=== PATIENT | female | born 1940 | race Caucasian/White ===

== ENCOUNTER → 2023-08-27 07:17 | Outpatient (REF) | payer MEDICARE, SELFPAY ==
[2023-08-27 07:48] LABS: % Basophils 0.8 % (0-2); % Immature Granulocytes 0.3 % (0-0.5); % Lymphocytes 18.6 % (20.5-51.1); % Monocytes 9.6 % (1.7-9.3); % Neutrophils 68.7 % (42.2-75.2); Absolute Basophils 0.1 10^3/uL (0-0.2); Absolute Eosinophils 0.1 10^3/uL (0-0.7); Absolute Lymphocytes 1.2 10^3/uL (1.2-3.4); Absolute Monocytes 0.6 10^3/uL (0.1-0.6); Absolute Neutrophils 4.5 10^3/uL (1.4-6.5); Hematocrit 36.4 % (37.0-47.0); Hemoglobin 12.4 g/dL (12.0-16.0); Mean Corp Hgb Conc. 34.1 g/dL (33.0-37.0); Mean Corpuscular Hgb 30.8 pg (27.0-31.0); Mean Corpuscular Volume 90.3 fL (81.0-99.0); Nucleated Red Blood Cells % 0 %; Platelet Count 246 10^3/uL (130-400); Red Blood Cell Count 4.03 10^6/uL (4.20-5.40); White Blood Cell Count 6.6 10^3/uL (4.8-10.8)
[2023-08-27 08:24] LABS: Urine Albumin Trace (Neg - Trace); Urine Bilirubin Negative (Negative); Urine Character Slightly Cloudy (Clear); Urine Color Yellow; Urine Glucose Negative (Negative); Urine Ketone Negative (Negative); Urine Leukocyte 2+ (Negative); Urine Nitrite Negative (Negative); Urine Occult Blood 2+ (Negative); Urine Specific Gravity 1.015 (<1.030); Urine Urobilinogen Negative (Neg - 1+)
[2023-08-27 08:47] LABS: ALT (SGPT) 12 U/L (0-35); AST (SGOT) 26 U/L (14-36); Albumin 3.6 g/dl (3.5-5.0); Alkaline Phosphatase 62 U/L (38-126); Blood Urea Nitrogen 23 mg/dl (7-17); Calcium 9.2 mg/dl (8.4-10.2); Carbon Dioxide 27 mmol/L (22-30); Chloride 99 mmol/L (98-107); Glucose 110 mg/dl (70-99); HDL Cholesterol 27 mg/dl; LDL Cholesterol, Calculated 83 mg/dl; Potassium 3.5 mmol/L (3.5-5.1); Sodium 137 mmol/L (135-145); Total Bilirubin 1.1 mg/dl (0.2-1.3); Total Cholesterol 132 mg/dl (50-199); Total Protein 7.9 g/dl (6.3-8.2); Triglyceride 112 mg/dl (10-149); Very Low Density Lipoprotein 22 mg/dl (0-30); eGFR > 60.00
[2023-08-27 09:43] LABS: Urine Bacteria Many (Negative); Urine White Cell 60-70 /HPF (0-5)
[2023-08-27 11:10] LABS: Glycohemoglobin (HgbA1c) 6.1 % (4.0-5.6)
== END ==
LOC: REG 07:17
PROVIDERS: ATTENDING PHYSICIAN Family Medicine
DX: I50.32 Chronic diastolic (congestive) heart failure (principal); I10 Essential (primary) hypertension; R73.01 Impaired fasting glucose; E03.9 Hypothyroidism, unspecified
CPT/HCPCS: 36415; 80053; 80061; 81003; 81015; 83036; 85025

== ENCOUNTER → 2024-01-28 07:18 | Outpatient (REF) | payer MEDICARE, SELFPAY ==
[2024-01-28 08:09] LABS: % Basophils 0.7 % (0-2); % Eosinophils 2.8 % (0-6); % Immature Granulocytes 0.5 % (0-0.5); % Lymphocytes 23.5 % (20.5-51.1); % Monocytes 8.9 % (1.7-9.3); % Neutrophils 63.6 % (42.2-75.2); Absolute Eosinophils 0.2 10^3/uL (0-0.7); Absolute Lymphocytes 1.4 10^3/uL (1.2-3.4); Absolute Monocytes 0.5 10^3/uL (0.1-0.6); Absolute Neutrophils 3.9 10^3/uL (1.4-6.5); Hemoglobin 13.5 g/dL (12.0-16.0); Mean Corp Hgb Conc. 33.8 g/dL (33.0-37.0); Mean Corpuscular Hgb 30.3 pg (27.0-31.0); Mean Corpuscular Volume 89.7 fL (81.0-99.0); Mean Platelet Volume 10.3 fL (7.4-10.4); Nucleated Red Blood Cells % 0 %; Platelet Count 241 10^3/uL (130-400); Red Blood Cell Count 4.46 10^6/uL (4.20-5.40); Red Cell Dist. Width 14.5 % (11.5-14.5); White Blood Cell Count 6.1 10^3/uL (4.8-10.8)
[2024-01-28 08:40] LABS: ALT (SGPT) 12 U/L (0-35); AST (SGOT) 25 U/L (14-36); Albumin 4.4 g/dl (3.5-5.0); Blood Urea Nitrogen 23 mg/dl (7-17); Calcium 9.3 mg/dl (8.4-10.2); Carbon Dioxide 25 mmol/L (22-30); Chloride 99 mmol/L (98-107); Glucose 101 mg/dl (70-99); Potassium 3.6 mmol/L (3.5-5.1); Sodium 136 mmol/L (135-145); Total Protein 7.9 g/dl (6.3-8.2); eGFR 55.55
[2024-01-28 08:49] LABS: Alkaline Phosphatase 71 U/L (38-126)
[2024-01-28 09:20] LABS: Glycohemoglobin (HgbA1c) 6.2 % (4.0-5.6)
== END ==
LOC: REG 07:18
PROVIDERS: ATTENDING PHYSICIAN Family Medicine
DX: Z79.01 Long term (current) use of anticoagulants (principal); R73.01 Impaired fasting glucose
CPT/HCPCS: 36415; 80053; 83036; 85025

== ENCOUNTER 2024-02-25 18:19 | Inpatient (IN) | payer MEDICARE, SELFPAY ==
[2024-02-25] VITALS (9 sets, daily range): BP systolic 95–128; BP diastolic 50–80; BMI 30.2
[2024-02-25 12:52] LABS: ALT (SGPT) 148 U/L (0-35); AST (SGOT) 165 U/L (14-36); Albumin 4.1 g/dl (3.5-5.0); Alkaline Phosphatase 538 U/L (38-126); Blood Urea Nitrogen 22 mg/dl (7-17); Calcium 9.2 mg/dl (8.4-10.2); Carbon Dioxide 19 mmol/L (22-30); Chloride 101 mmol/L (98-107); Glucose 175 mg/dl (70-99); Lipase 682 U/L (23-300); Potassium 3.5 mmol/L (3.5-5.1); Sodium 137 mmol/L (135-145); Total Bilirubin 5.8 mg/dl (0.2-1.3); Total Protein 7.7 g/dl (6.3-8.2); eGFR 55.55
[2024-02-25 13:02] LABS: Troponin I 0.015 ng/ml
[2024-02-25 13:20] LABS: % Basophils 0.3 % (0-2); % Eosinophils 0.1 % (0-6); % Immature Granulocytes 1.3 % (0-0.5); % Lymphocytes 2.6 % (20.5-51.1); % Monocytes 7.9 % (1.7-9.3); % Neutrophils 87.8 % (42.2-75.2); Absolute Basophils 0.1 10^3/uL (0-0.2); Absolute Immature Granulocytes 0.3 10^3/uL (0-0.05); Absolute Lymphocytes 0.6 10^3/uL (1.2-3.4); Absolute Monocytes 1.9 10^3/uL (0.1-0.6); Absolute Neutrophils 20.6 10^3/uL (1.4-6.5); Hematocrit 36.7 % (37.0-47.0); Mean Corp Hgb Conc. 35.4 g/dL (33.0-37.0); Mean Corpuscular Volume 87.4 fL (81.0-99.0); Mean Platelet Volume 10.3 fL (7.4-10.4); Nucleated Red Blood Cells % 0 %; Platelet Count 197 10^3/uL (130-400); Red Cell Dist. Width 14.6 % (11.5-14.5); White Blood Cell Count 23.5 10^3/uL (4.8-10.8)
--- NOTE | 2024-02-25 13:54 | ED.GENMED ---
History of Present Illness
General
Chief Complaint: Abdominal Pain
Source: patient and family
Exam Limitations: none
Time Seen by Provider: 02/25/24 13:22
History of Present Illness
History of Present Illness:
Patient is a 89-year-old female with previous history of cholecystectomy, hysterectomy appendectomy A-fib hypertension who presents to the ER complaining of upper abdominal pain. She reports she has had this pain off and on for the past week but
this morning started at 5 AM. She has had diarrhea and did vomit at 7 this morning. She did take a Pepcid. She denies any associated fever or chills.
Past History
Past History
ED Past Medical History: Arrthythmia (Atrial fibrillation.), Asthma, GERD, HTN and Hypothyroidism
Social History
Tobacco: Non-smoker
Alcohol: None
Drug: None
Living: alone
Employment: Retired
Family History
Family History: Other (Noncontributory)
Review of Systems
Review of Systems
Allergies reviewed?: Yes
Other source history: family
All Other Systems: ROS reviewed and negative except as documented in HPI and ROS
Constitutional: Reports no symptoms; Denies fever, fatigue or chills
Respiratory: Reports no symptoms
Cardiac: Reports no symptoms
ABD/GI: Reports abdominal pain, nausea, vomiting and diarrhea
: Reports no symptoms
Musculoskeletal: Reports no symptoms; Denies back pain
Skin: Reports no symptoms
Neurological: Reports no symptoms
Psychiatric: Reports no symptoms
Phy Exam
General Physical Exam
General Presentation: no apparent distress
General age: appears stated age
General Skin: warm and dry
General Habitus: normal
General Mental: alert
General Hydration: appears well hydrated
Eye Exam
Eye Exam: PERRL, EOMI and other (Mild scleral icterus)
Cardiovascular Exam
Cardiovascular Exam: regular rate/rhythm, no murmur and normal peripheral pulses
Pulmonary Exam
Pulmonary Exam: lungs clear and no respiratory distress
Gastrointestinal Exam
Gastrointestinal Exam: soft and other (tender epigastric region /ruq )
Neurological Exam
Neurological Exam: alert and oriented x3
Musculoskeletal Exam
Musculoskeletal Exam: full ROM
Skin Exam
Skin Exam: normal color and warm/dry
Psychiatric Exam
Psychiatric Exam: normal mood/affect
Course
Orders/Labs/Results
Orders:
Orders
02/25/24 12:01
Electrocardiogram (*1) Urgent
Reason for Study: Abdominal Pain
EKG- Treatment ONCE
02/25/24 12:22
Comprehensive Metabolic Panel Urgent
Lipase Urgent
02/25/24 12:23
Complete Blood Count/With Diff Urgent
Troponin I Urgent
02/25/24 14:01
CT Abd/pelvis W Iv Cont Urgent
Comment:
Reason For Exam: upper abd pain elevated lfts /bili
02/25/24 14:48
Lactic Acid Urgent
Blood Culture Urgent
BETTY Source: Blood/Venous
Specimen Description:
02/25/24 16:43
Ciprofloxacin 400 mg/[id number] [Cipro 400 mg] 200 ml IV NOW
Abnormal Lab Results
02/25/24 02/25/24
12:22 12:23
WBC 23.5 H 10^3/uL
(4.8-10.8)
Hct 36.7 L %
(37.0-47.0)
RDW 14.6 H %
(11.5-14.5)
Abs Immat Gran (auto) 0.3 H 10^3/uL
(0-0.05)
Absolute Neuts (auto) 20.6 H 10^3/uL
(1.4-6.5)
Absolute Lymphs (auto) 0.6 L 10^3/uL
(1.2-3.4)
Absolute Monos (auto) 1.9 H 10^3/uL
(0.1-0.6)
Immature Gran % 1.3 H %
(0-0.5)
Neutrophils % 87.8 H %
(42.2-75.2)
Lymphocytes % 2.6 L %
(20.5-51.1)
Carbon Dioxide 19 L mmol/L
(22-30)
BUN 22 H mg/dl
(7-17)
Glucose 175 H mg/dl
(70-99)
Total Bilirubin 5.8 H mg/dl
(0.2-1.3)
AST 165 H U/L
(14-36)
ALT 148 H U/L
(0-35)
Alkaline Phosphatase 538 H U/L
(38-126)
Lipase 682 H U/L
(23-300)
02/25/24 12:23
02/25/24 12:22
Vital Signs
Initial and Last Documented VS:
Initial Vital Signs
Temp Pulse Resp BP Pulse Ox
97.8 F 116 20 128/75 92
02/25/24 11:57 02/25/24 11:57 02/25/24 11:57 02/25/24 11:57 02/25/24 11:57
Last Documented Vital Signs
Temp Pulse Resp BP Pulse Ox
97.8 F 90 22 95/50 92
02/25/24 11:57 02/25/24 14:45 02/25/24 14:45 02/25/24 14:00 02/25/24 14:30
Ceo Na consulted with Physician
Ceo Na consulted with physician?: Yes
Name of Physician Consulted: DR Boston
MDM/Problems Addressed
MDM/Problems Addressed:
Patient is a 89-year-old female who presents with upper abdominal pain nausea vomiting diarrhea. Patient presents with an elevated white count of 23,000 denies any fevers elevated bili and elevated LFTs. She is tender in the epigastric area. CAT
scan shows diffuse biliary ductal dilatation evidence for at least 3 noncalcified common bile duct calculi.
Patient appears well however nontoxic. Case discussed with GI Dr. Glover. Patient is allergic to penicillin she does recommend IV Cipro will admit to the hospitalist service
*Radiology
Radiology exam reviewed: radiology read reviewed
*Pulse Oximetry
Patient hypoxic: no
*Critical Care Note
Total Time (30-74mins, 75-104mins- exclusive of procedures): Not Applicable
Patient Management
Discussion with other providers: Core Loader (DR Glover , GI)
ED Attending Note
-
Portions of this chart may have been created with voice recognition software.� Occasional wrong word or��sound alike� substitutions may have occurred due to the inherent limitations of voice recognition software.
Discharge Plan
Departure
Patient Disposition: Admit
Date of Disposition: 02/25/24
Time of Disposition: 16:46
Admit to: Med/Surg
Admit to doctor: hospitalist
Presentation/result/management discussed w/ accepting MD/DO: Hospitalist
Patient with high blood pressure during this ER visit?: No
Condition: Fair
Covid-19: Not Applicable
Discharge Problem:
Biliary calculi, common bile duct, Elevated LFTs
Prescriptions:
No Action
propranolol 80 MG tablet
80 mg PO DAILY
levothyroxine 125 MCG tablet
125 mcg PO DAILY AT 0700
esomeprazole magnesium [Nexium 24HR] 20 MG capsule,delayed release(DR/EC)
20 mg PO DAILY
acetaminophen 325 MG tablet
650 mg PO Q6HPRN PRN (Reason: mild pain)
multivitamin with folic acid [Tab-A-Theo] 1 TABLET tablet
1 tab PO DAILY
diltiazem HCl 120 MG capsule,extended release 24hr
120 mg PO DAILY 0RF
furosemide 20 MG tablet
60 mg PO DAILY 0RF
Eliquis 5 MG tablet
5 mg PO BID 0RF
spironolactone 25 MG tablet
12.5 mg PO DAILY
loperamide [Imodium] 2 mg Capsule
2 mg PO Q4HPRN PRN (Reason: loose stool)
potassium chloride 8 mEq tablet extended release
8 meq PO DAILY
furosemide 20 mg tablet
20 mg PO NOON
vitamin E 268 mg (400 unit) Capsule
268 mg PO DAILY
loratadine [Claritin] 10 mg Tablet
10 mg PO DAILYPRN PRN (Reason: allergies)
diclofenac sodium 1 % Gel
1 ea TOPICAL BID
Patient Comments:
apply to right knee
cholecalciferol (vitamin D3) 50 mcg (2,000 unit) Tablet
100 mcg PO DAILY
Saline Nasal 50 SPRAYS/45 ML aerosol,spray
2 sprays intranasal QIDPRN PRN (Reason: dry nasal)
Referrals:
Jennyfer Jackson DO [Family Provider] -
Interventions
Interventions:
*Risk Screen - Suicide Last Done: 02/25/24 14:51
*General Assessment Last Done: 02/25/24 14:51
*Neglect/Abuse Screening Last Done: 02/25/24 14:51
ED- Fall Risk Assessment Last Done: 02/25/24 14:51
*ED COVID-19 Vaccine History Last Done: 02/25/24 14:51
DN-Tfhusr-Ttmhfsqxqt Assessment Last Done: 02/25/24 14:51
Discharge Date and Time
Print Language: OMANI
[2024-02-25 15:21] LABS: Lactic Acid 1.8 mmol/L (0.7-2.0)
[2024-02-25] MEDS: CIPRO 400 MG 200 IV (17:38)
--- NOTE | 2024-02-25 18:13 | HPS.HSE ---
Addendum entered and electronically signed by Makayla Rivas MD 02/25/24 18:31:
Other impression is [3.4 cystic mass, Follow-up as an outpatient including ultrasound of mammogram and MRI will defer further workup to outpatient and nonemergent basis.
Addendum entered and electronically signed by Makayla Rivas MD 02/25/24 18:28:
Other impressions elevated lipase, likely secondary to pancreatitis caused by common bile duct stone while other causes need to be considered.
Recheck lab
Manage this. Upper abdominal pain
N.p.o.
IV fluid
Pain and nausea medical
Original Note:
Family Physician
-
Family Physician: Jennyfer Jackson
Chief Complaint
-
Upper abdominal pain
History of Present Illness
83-year-old female with history of A-fib currently in sinus rhythm anticoagulated with Eliquis, hypertension, status post cholecystectomy many years ago, presented to the hospital after she woke up this morning with moderately severe epigastric pain
associated with nausea and nonbloody vomiting. She called her daughter around 5 AM and she checked on her she looks like she threw up eventually got better and she fell back asleep woke up 3 hours later with the same symptoms, associated with
sweating and chills but no fever documented, denies any diarrhea or any fresh rectal bleed or changes stool color or any constipation, no urinary symptoms, denies any chest pain or cough or congestion or any headache or vision change.
No sick contacts or recent travel.
No syncope or dizziness, workup in the ER showed elevated LFT while all CT abdominal and pelvis showed 3 common bile duct stone with dilated biliary system, ER physician they spoke to GI they recommended antibiotic with Cipro as she is allergic to
penicillin as she swells up and break out in hives with penicillin.
She is currently very mild epigastric pain and she is awake, alert and oriented x 3 hold appropriate conversation accompanied by the daughter at the bedside.
Medical History
Past Medical History
Past Medical History: Reports Other
Additional Past Medical History:
Past medical history:
Hypertension
A-fib
Hypothyroidism
Mild hearing impairment
Osteoarthritis
IBS
Mild mitral valve prolapse
Surgical history:
Appendectomy
Cholecystectomy
Hysterectomy
Social history: Lives close by the hospital with the daughter, denies smoking alcohol use other than an holidays.
Family history: Reviewed and noncontributory
Past Surgical History: Reports Other
Social History
Unable to obtain full social history at this time due to: Other
Family History
Family History: Other
Allergies / Home Medications
Allergies reflects when Allergies were last updated in [employer].
Home Medications with original date entered in [employer]
Allergy/Medication List:
Allergies
Allergy/AdvReac Type Severity Reaction Status Date / Time
cortisone Allergy Unknown Verified 06/26/21 10:01
mushroom Allergy Unknown Verified 06/26/21 10:01
Penicillins Allergy Unknown Verified 06/26/21 10:01
strawberry Allergy Unknown Verified 06/26/21 10:01
tetanus toxoid, adsorbed Allergy Unknown Verified 06/26/21 10:01
Home Medications
acetaminophen 325 mg tablet 650 mg PO Q6HPRN PRN mild pain 06/26/21
esomeprazole magnesium 20 mg capsule,delayed release (Nexium 24HR) 20 mg PO DAILY Gastrointestinal issue 06/26/21
levothyroxine 125 mcg tablet 125 mcg PO DAILY AT 0700 Thyroid 06/26/21
multivitamin with folic acid 400 mcg tablet (Tab-A-Theo) 1 tab PO DAILY Supplement 06/26/21
propranolol 80 mg tablet 80 mg PO DAILY Blood pressure 06/26/21
apixaban 5 mg tablet (Eliquis) 5 mg PO BID 07/04/21
diltiazem HCl 120 mg capsule,extended release 24 hr 120 mg PO DAILY 07/04/21
furosemide 20 mg tablet 60 mg (3 x 20 mg) PO DAILY 07/04/21
spironolactone 25 mg tablet 12.5 mg PO DAILY 03/13/22
cholecalciferol (vitamin D3) 50 mcg (2,000 unit) tablet 100 mcg PO DAILY 02/25/24
diclofenac sodium 1 % topical gel 1 ea topical BID 02/25/24
furosemide 20 mg tablet 20 mg PO NOON 02/25/24
loperamide 2 mg capsule 2 mg PO Q4HPRN PRN loose stool 02/25/24
loratadine 10 mg tablet (Claritin) 10 mg PO DAILYPRN PRN allergies 02/25/24
potassium chloride 8 mEq tablet,extended release 8 meq PO DAILY 02/25/24
sodium chloride 0.65 % nasal spray aerosol (Saline Nasal) 2 sprays intranasal QIDPRN PRN dry nasal 02/25/24
vitamin E 268 mg (400 unit) capsule 268 mg PO DAILY 02/25/24
Review of Systems
-
A 12 point ROS was completed and negative except as noted: Yes
Physical Exam
Vital Signs
Vital Signs
Temp Pulse Resp BP Pulse Ox
97.8 F 90 20 119/53 95
02/25/24 11:57 02/25/24 18:00 02/25/24 18:00 02/25/24 18:00 02/25/24 18:00
Physical exam:
General: Awake, alert and oriented x3, not in distress and holds appropriate conversation.
HEENT: No active discharge, ecchymosis or bruising, moist lips, tongue and mucous membrane.
Eyes: No discharge or red conjunctiva, no nystagmus, pupils are reactive and equal
Neck:Supple, no JVD no bruit no goiter.
Respiratory: Normal AP contour and diameter, normal chest wall movement, normal respiratory effort, no respiratory distress,
Lungs: Good air entry bilaterally, no wheezing or rhonchi, no rales or crackles
Heart: S1, S2 regular, normal rate, no added sound.
Gastrointestinal: Positive bowel sounds, soft, nontender, no guarding or rigidity or organomegaly
Musculoskeletal: , no chest wall abnormality or tenderness. All joints and extremities have good range of motion, no muscle tenderness or any joint swelling or tenderness.
Extremities: No pitting edema, good peripheral pulses, good range of motion
Skin: Warm and dry, no ulceration, normal color.
Neurological: Awake, alert and oriented x3, no facial droop, moves extremities freely, speech clear and comprehensive, good muscle tone,
Psychiatric: Normal mood, normal thought and judgment, normal affect,
Physical Exam
General: Other
Laboratory Results
-
02/25/24 12:23
02/25/24 12:22
Laboratory Results
Lactic Acid 1.8 mmol/L (0.7-2.0) 02/25/24 14:48
Total Bilirubin 5.8 mg/dl (0.2-1.3) H 02/25/24 12:22
AST 165 U/L (14-36) H 02/25/24 12:22
ALT 148 U/L (0-35) H 02/25/24 12:22
Alkaline Phosphatase 538 U/L (38-126) H 02/25/24 12:22
Troponin I 0.015 ng/ml 02/25/24 12:23
Lipase 682 U/L (23-300) H 02/25/24 12:22
CT abdominal and pelvis:
Status post cholecystectomy. Diffuse biliary ductal dilation. Evidence for at least 3 noncalcified common bile duct calculi.
Coronary artery calcifications are present. Please correlate with symptoms of and risk factors for coronary artery disease, with further workup as clinically appropriate.
3.4 cm cystic mass within the visualized left breast, extending superior to the included field of view. This likely represents a large cyst or seroma. As warranted, consideration for a follow-up left breast ultrasound.
Small foci of air within the anterior bladder, most likely from recent instrumentation. Please correlate clinically to exclude an air-forming bladder infection.
Compression deformities of L3 and L4, age uncertain with no comparison examination available. Grade 1 degenerative spondylolisthesis at L5-S1. Additional bony degenerative changes as described.
EKG showed A-fib with RVR at around 105, QTc 465, normal axis otherwise no acute abnormalities.
Impression/Plan
-
IMPRESSION:
83-year-old female with history of A-fib and cholecystectomy presents with upper abdominal pain where the workup basically showed common bile duct stone and biliary dilatation.
Abdominal pain: Likely secondary to common bile duct stone with biliary dilation while infection could be a possibility.
Keep n.p.o. except medication
GI consult
IV fluids
Recheck lab
Cover with IV antibiotic Cipro and Flagyl, as she has been severe reaction as discussed with the patient and the daughter to penicillin including generalized edema and breaking out in a severe rash therefore avoid cephalosporin we need to closely
monitor her QT especially she is on beta-thu and Cardizem.
Defer further workup to GI
Pain nausea medication as needed
Elevated LFT: Likely secondary to common bile duct stone
Recheck lab
Sepsis: With leukocytosis and tachycardia heart rate was above 100, likely secondary to common bile duct stone and infection
IV Cipro and Flagyl
Recheck lab
IV fluid
Hypertension: Continue Cardizem, atenolol while holding her home Lasix and Aldactone.
IV fluid
Monitor fluid status.
Hypothyroidism: Continue levothyroxine
A-fib: Continue atenolol and Cardizem with monitoring vital sign closely
Hold Eliquis in case require intervention will do heparin without initial bolus.
All discussed with the patient and the daughter in detail and expressed understanding
CODE STATUS full code as discussed with the patient and the daughter
DVT prophylaxis heparin drip
[2024-02-25 20:20] LABS: PT 24.3 Sec (11.4-14.6)
[2024-02-25 20:21] LABS: APTT 52.9 Sec (23.4-35.0)
[2024-02-25 20:26] LABS: Hematocrit 35.5 % (37.0-47.0); Hemoglobin 12.6 g/dL (12.0-16.0); Mean Corp Hgb Conc. 35.5 g/dL (33.0-37.0); Mean Corpuscular Hgb 30.5 pg (27.0-31.0); Mean Platelet Volume 10.1 fL (7.4-10.4); Platelet Count 187 10^3/uL (130-400); Red Blood Cell Count 4.13 10^6/uL (4.20-5.40); White Blood Cell Count 22.9 10^3/uL (4.8-10.8)
[2024-02-25] MEDS: NSS 1000 IV (20:51)
--- NOTE | 2024-02-25 21:00 | PTCARENOTE ---
Patient admitted for CBD stone. C/o N/V/D this AM. Patient is AAOx3, ambulatory with Ax1 & walker. Patient answers admission questions appropriately. Denies any pain at this time. Denies nausea at this time. Patient is NPO. Order for hep gtt. Called
for second IV site.
[2024-02-25] MEDS: FLAGYL 500 MG 100 IV (21:53)
[2024-02-25] MEDS: HEPARIN 25000 UNITS/250 ML IV (22:19)
[2024-02-26] MEDS: FLAGYL 500 MG 100 IV ×3 (04:07→20:33)
[2024-02-26 04:30] LABS: APTT 170.3 Sec (23.4-35.0)
--- NOTE | 2024-02-26 04:40 | PTCARENOTE ---
Heparin gtt started at 2219 02/25/24 at 9.5 mL/hr. PTT is 170.3. Per protocol, hold for one hour and restart with new rate at 7.5 mL/hr.
[2024-02-26] MEDS: CIPRO 400 MG 200 IV ×2 (05:49→17:26)
[2024-02-26] MEDS: SYNTHROID 125 MCG PO (06:33)
[2024-02-26 07:00] VITALS: BP 96/59
[2024-02-26] MEDS: INDERAL 80 MG PO (08:43)
[2024-02-26] MEDS: PROTONIX 40 MG PO (08:44)
[2024-02-26] MEDS: CARDIZEM CD 120 MG PO (08:44)
[2024-02-26] MEDS: LR 1000 IV ×2 (08:47→17:25)
--- NOTE | 2024-02-26 09:56 | CON.GI ---
Consultation
-
Date/Time Consultation Requested: 02/25/24 at 5pm
Date/Time Consultation Performed: 02/26/24 at 7am
Requesting Provider: alba
Performing Provider: day
Reason for Consultation: abnl lfts/imaging
Medical History
Chief Complaint / HPI
Chief Complaint: abd pain
History of Present Illness:
This patient is an 83-year-old woman with a history of atrial fibrillation on Eliquis who had a cholecystectomy in the remote past. She woke up with 1 day of severe right upper quadrant pain associated with emesis and chills. She was taken to the
emergency room. She was found by CAT scan to have a dilated biliary system and 3 stones in her common bile duct. She does state that the pain did improve since yesterday. She has not had any emesis. She is currently on ciprofloxacin and Flagyl.
her last dose of eliquis was the morning of 02/24 and she is on heparin ggt
Past Medical History
Past Medical History: Other (Atrial fibrillation, hypertension, hypothyroidism, osteoarthritis)
Past Surgical History: Appendectomy, Cholecystectomy and Gynecological (Hysterectomy)
Social History
Tobacco: Non-Smoker
Family History
Family History: Reviewed & Not Pertinent
Allergies / Home Medications
Allergy/AdvReac Type Severity Reaction Status Date / Time
cortisone Allergy Unknown Verified 06/26/21 10:01
mushroom Allergy Unknown Verified 06/26/21 10:01
Penicillins Allergy Unknown Verified 06/26/21 10:01
strawberry Allergy Unknown Verified 06/26/21 10:01
tetanus toxoid, adsorbed Allergy Unknown Verified 06/26/21 10:01
�Medication �Instructions �Recorded
acetaminophen 325 mg tablet 650 mg PO Q6HPRN PRN mild pain 06/26/21
esomeprazole magnesium 20 mg 20 mg PO DAILY Gastrointestinal 06/26/21
capsule,delayed release (Nexium issue
24HR)
levothyroxine 125 mcg tablet 125 mcg PO DAILY@06 Thyroid 06/26/21
multivitamin with folic acid 400 1 tab PO DAILY Supplement 06/26/21
mcg tablet (Tab-A-Theo)
propranolol 80 mg tablet 80 mg PO DAILY Neurological 06/26/21
Condition
diltiazem HCl 120 mg 120 mg PO DAILY 07/04/21
capsule,extended release 24 hr
spironolactone 25 mg tablet 12.5 mg PO DAILY Blood Pressure 03/13/22
cholecalciferol (vitamin D3) 50 100 mcg PO DAILY Supplement 02/25/24
mcg (2,000 unit) tablet
diclofenac sodium 1 % topical gel 1 ea topical BID Pain 02/25/24
furosemide 20 mg tablet 20 mg PO NOON Fluid 02/25/24
Retention/Swelling
loperamide 2 mg capsule 2 mg PO Q4HPRN PRN loose stool 02/25/24
loratadine 10 mg tablet (Claritin) 10 mg PO DAILYPRN PRN allergies 02/25/24
potassium chloride 8 mEq 8 meq PO DAILY Electrolyte 02/25/24
tablet,extended release Repletion
sodium chloride 0.65 % nasal spray 2 sprays intranasal QIDPRN PRN dry 02/25/24
aerosol (Saline Nasal) nasal
vitamin E 268 mg (400 unit) capsule 268 mg PO DAILY Supplement 02/25/24
apixaban 5 mg tablet (Eliquis) 5 mg PO BID Blood Clot 02/26/24
Prevention/Tx
furosemide 20 mg tablet 60 mg PO DAILY Fluid 02/26/24
Retention/Swelling
Review of Systems
-
All other systems: A 12 pt ROS was Negative except as stated above in HPI
Vital Signs
Temp Pulse Resp BP Pulse Ox
98.3 F 79 18 96/58 96
02/26/24 07:00 02/26/24 08:44 02/26/24 07:00 02/26/24 08:44 02/26/24 07:00
Physical Exam
Exam
General: No Apparent Distress
HEENT: Anicteric (mild icterus)
Cardiac: S1/S2
GI: Soft and Non Tender (mildly tender)
Neuro: Awake
Psych: Calm
Results
WBC 22.9 10^3/uL (4.8-10.8) H 02/25/24 20:00
Hgb 12.6 g/dL (12.0-16.0) 02/25/24 20:00
Hct 35.5 % (37.0-47.0) L 02/25/24 20:00
MCV 86.0 fL (81.0-99.0) 02/25/24 20:00
Plt Count 187 10^3/uL (130-400) 02/25/24 20:00
Absolute Neuts (auto) 20.6 10^3/uL (1.4-6.5) H 02/25/24 12:23
PT 24.3 Sec (11.4-14.6) H 02/25/24 20:00
INR 2.20 02/25/24 20:00
APTT 170.3 Sec (23.4-35.0) H* 02/26/24 04:06
Sodium 137 mmol/L (135-145) 02/25/24 12:22
Potassium 3.5 mmol/L (3.5-5.1) 02/25/24 12:22
Chloride 101 mmol/L (98-107) 02/25/24 12:22
Carbon Dioxide 19 mmol/L (22-30) L 02/25/24 12:22
BUN 22 mg/dl (7-17) H 02/25/24 12:22
Creatinine 1.0 mg/dL (0.6-1.0) 02/25/24 12:22
Calcium 9.2 mg/dl (8.4-10.2) 02/25/24 12:22
Total Bilirubin 5.8 mg/dl (0.2-1.3) H 02/25/24 12:22
AST 165 U/L (14-36) H 02/25/24 12:22
ALT 148 U/L (0-35) H 02/25/24 12:22
Alkaline Phosphatase 538 U/L (38-126) H 02/25/24 12:22
Lipase 682 U/L (23-300) H 02/25/24 12:22
Assessment / Plan
-
This patient is an 83-year-old woman with a history of a cholecystectomy with cholangitis with residual stones. She is clinically better on antibiotics and has been off Eliquis for 1 day. For now we will do the following;
1. follow lfts, not back today
2. follow wbc, she is on antibiotics
3. hold eliquis last dose yesterday am
4. on heparin ggt
5. stop heparin ggt at 2am for probable ERCP tomorrow
Data Reviewed
-
Radiology: Report Reviewed by me
-
-
Thank you for consultation and allowing me to participate in the patient's care. Please call the electronic publications specialist GI physician during the after hours with any questions or concerns.
[2024-02-26 10:31] LABS: % Basophils 0.3 % (0-2); % Eosinophils 0.1 % (0-6); % Immature Granulocytes 1.2 % (0-0.5); % Monocytes 5.9 % (1.7-9.3); % Neutrophils 84.5 % (42.2-75.2); Absolute Immature Granulocytes 0.2 10^3/uL (0-0.05); Absolute Lymphocytes 1.3 10^3/uL (1.2-3.4); Absolute Monocytes 0.9 10^3/uL (0.1-0.6); Absolute Neutrophils 13.4 10^3/uL (1.4-6.5); Hematocrit 34.8 % (37.0-47.0); Hemoglobin 11.9 g/dL (12.0-16.0); Mean Corp Hgb Conc. 34.2 g/dL (33.0-37.0); Mean Corpuscular Volume 90.6 fL (81.0-99.0); Mean Platelet Volume 10.6 fL (7.4-10.4); Nucleated Red Blood Cells % 0 %; Platelet Count 191 10^3/uL (130-400); Red Blood Cell Count 3.84 10^6/uL (4.20-5.40); Red Cell Dist. Width 15.4 % (11.5-14.5); White Blood Cell Count 15.9 10^3/uL (4.8-10.8)
--- NOTE | 2024-02-26 10:35 | W.PN.HOSP.TC ---
Addendum entered and electronically signed by Haroldo Spann MD 02/26/24 12:08:
I saw and evaluated the patient. I reviewed the resident�s note and agree with findings and plan as documented in the resident�s note.
No new complaints. Denies abdominal pain.
Gen: NAD, Awake and alert
Eyes: EOMI, PERRLA, no scleral icterus.
Neck: supple.
CV: RRR, +S1/S2, no m/r/g.
Resp: CTAB, no rales, wheezes, or rhonchi.
Abd: +BS, soft, NT, ND
Skin: No rashes.
Neuro: CN 2-12 intact, non-focal.
Psych: Normal mood and affect.
Abdominal pain:
-With leukocytosis, elevated LFTs and imaging findings, likely choledocholithiasis causing acute ascending cholangitis (sepsis, POA) and acute pancreatitis
-Leukocytosis improving with antibiotics, continue Cipro/Flagyl
-for ERCP tomorrow
-change IVFs to LR
-GI following
Afib (unknown type):
-cont heparin gtt
-cont cardizem/propranolol with holding parameters
Total time spent on today's encounter was 50 minutes which included time spent in counseling the patient/family regarding diagnosis and treatment plan as listed above, goals of care, and symptom management. Case was discussed with nursing staff,
specialists, and care coordinators/case management. All labs and imaging personally reviewed by me. Remainder the time spent in detailed review of previous records, lab data, imaging, and other medical provider documentation.
Original Note:
Today's Communication/Plan
-
Continue fluids, antibiotics, heparin drip. Stop heparin drip at 2 AM to prepare for ERCP tomorrow.
Assessment / Plan
Assessment / Plan
Abdominal pain
CAT scan to have a dilated biliary system and 3 stones in her common bile duct.
Keep n.p.o. except medication
Continue IV fluids, pain and nausea medication as needed
Cover with IV metronidazole and cipro. Monitor QT as she in on BB and Cardizem
WBC downtrending
Pt had prior allergic reaction to penicidin and was worried about an allergic reaction, pt reports no rash today and overall feels well
GI recommended to continue antibiotics, hold Eliquis, continue heparin drip. Stop heparin drip at 2 AM for probable ERCP tomorrow
Elevated LFT:
Likely secondary to common bile duct stone
Pending
Sepsis: With leukocytosis and tachycardia heart rate was above 100, likely secondary to common bile duct stone and infection
IV Cipro and Flagyl
Recheck lab
IV fluid
Hypertension: Continue Cardizem, atenolol while holding her home Lasix and Aldactone.
IV fluid
Monitor fluid status.
Hypothyroidism: Continue levothyroxine
A-fib: Continue atenolol and Cardizem with monitoring vital sign closely
Hold Eliquis in case require intervention will do heparin without initial bolus.
All discussed with the patient and the daughter in detail and expressed understanding
CODE STATUS full code as discussed with the patient and the daughter
DVT prophylaxis heparin drip
Anticipated Discharge: > 48 hours
Subjective/Interval History
-
Date of Service: February 26, 2024
Patient feels well and is currently not experiencing abdominal pain, nausea or vomiting on meds
Objective Data
-
Labs:
Laboratory Results
02/26/24 02/26/24
04:06 09:58
WBC 15.9 H
Hgb 11.9 L
Hct 34.8 L
Plt Count 191
APTT 170.3 H* Pending
Sodium Pending
Potassium Pending
Chloride Pending
Carbon Dioxide Pending
BUN Pending
Creatinine Pending
Glucose Pending
Calcium Pending
Total Bilirubin Pending
AST Pending
ALT Pending
Alkaline Phosphatase Pending
Vital Signs:
Vital Signs
Temp Pulse Resp BP Pulse Ox
98.3 F 79 18 96/58 96
02/26/24 07:00 02/26/24 08:44 02/26/24 07:00 02/26/24 08:44 02/26/24 07:00
I&O
02/25/24 02/26/24 02/27/24
06:59 06:59 06:59
Intake Total 1310 / 1310
Balance 1310 / 1310
Review of Systems
-
History Source: Patient
EENT: Reports No Symptoms Reported
Respiratory: Reports No Symptoms
Cardiac: Reports No Symptoms
Abdomen/GI: Reports No Symptoms; Denies Nausea, Vomiting or Diarrhea
Skin: Reports No Symptoms
Neuro: Reports No Symptoms
Physical Exam
-
General: Well Developed and No Apparent Distress
Respiratory: Clear to Auscultation
Cardiac: Irregular Rhythm
GI: Soft and Tender (RUQ and epigastric region tenderness )
Musculoskeletal: Edema, Right Lower Extrem and Edema, Left Lower Extrem
Skin: Warm
Neuro: AO x 3
Psych: Calm
[2024-02-26 10:37] LABS: APTT 133.9 Sec (23.4-35.0)
[2024-02-26 11:31] LABS: ALT (SGPT) 108 U/L (0-35); AST (SGOT) 87 U/L (14-36); Albumin 3.6 g/dl (3.5-5.0); Alkaline Phosphatase 401 U/L (38-126); Blood Urea Nitrogen 22 mg/dl (7-17); Calcium 8.7 mg/dl (8.4-10.2); Carbon Dioxide 25 mmol/L (22-30); Chloride 101 mmol/L (98-107); Estimated Creatinine Clearance 37 ml/min; Glucose 98 mg/dl (70-99); Lipase 94 U/L (23-300); Magnesium 1.8 mg/dl (1.6-2.3); Potassium 3.6 mmol/L (3.5-5.1); Sodium 140 mmol/L (135-145); Total Bilirubin 3.9 mg/dl (0.2-1.3); Total Protein 6.9 g/dl (6.3-8.2); eGFR 49.55
--- NOTE | 2024-02-26 12:35 | CM ---
Patient seen bedside, initial assessment completed. Patient reports she lives independently in a single story home, two steps to enter. Patient reports shes receives services through [facility] every 5 months, will send referral through [facility].
Patient denies SNF. Patient reports she has a walker at home. Patient confirms PCP Jennyfer Jackson, pharmacy [facility] Patient confirms prescription coverage, denies food, housing/utility, transportation insecurities at home, reports
her daughter lives nearby and is supportive. CM will continue to follow for all discharge planning needs.
Plan; home with return of care through [facility], will confirm patient is current with services.
[2024-02-26 15:35] VITALS: BP 113/60
[2024-02-26 19:12] LABS: APTT 126.8 Sec (23.4-35.0)
[2024-02-26 23:13] VITALS: BP 117/61
[2024-02-27] MEDS: FLAGYL 500 MG 100 IV ×2 (04:53→20:00)
[2024-02-27] MEDS: CIPRO 400 MG 200 IV (05:58)
[2024-02-27] MEDS: LR 1000 IV ×2 (06:06→16:02)
[2024-02-27] MEDS: SYNTHROID 125 MCG PO (07:39)
[2024-02-27] MEDS: PROTONIX 40 MG PO (07:39)
[2024-02-27 07:47] VITALS: BP 128/57
[2024-02-27] MEDS: INDERAL PO (07:47)
[2024-02-27] MEDS: CARDIZEM CD PO (07:47)
[2024-02-27 08:01] LABS: Hematocrit 31.4 % (37.0-47.0); Mean Corpuscular Hgb 30.5 pg (27.0-31.0); Mean Platelet Volume 10.4 fL (7.4-10.4); Platelet Count 185 10^3/uL (130-400); Red Blood Cell Count 3.61 10^6/uL (4.20-5.40); Red Cell Dist. Width 15.1 % (11.5-14.5); White Blood Cell Count 8.8 10^3/uL (4.8-10.8)
[2024-02-27 08:37] LABS: ALT (SGPT) 73 U/L (0-35); AST (SGOT) 44 U/L (14-36); Alkaline Phosphatase 302 U/L (38-126); Blood Urea Nitrogen 19 mg/dl (7-17); Calcium 8.6 mg/dl (8.4-10.2); Carbon Dioxide 21 mmol/L (22-30); Chloride 105 mmol/L (98-107); Estimated Creatinine Clearance 46 ml/min; Glucose 110 mg/dl (70-99); Potassium 3.2 mmol/L (3.5-5.1); Sodium 138 mmol/L (135-145); Total Bilirubin 2.1 mg/dl (0.2-1.3); Total Protein 6.2 g/dl (6.3-8.2); eGFR > 60.00
--- NOTE | 2024-02-27 12:30 | PTCARENOTE ---
right side of face is a little puffy, warm and flushed, pt reports itching. hospitalist notified.
--- NOTE | 2024-02-27 12:35 | CM ---
Patient seen bedside.
Patient for ERCP (P).
Per patient and daughter reddened area on right cheek.
Daughter and patient aware of CM availability for d/c needs.
Plan: home with WIL Feliciano
Current with [facility] per [place] from [facility].
P
[2024-02-27] MEDS: FLAGYL 500 MG IV (13:17)
[2024-02-27] MEDS: CIPRO 400 MG IV (13:17)
[2024-02-27 15:07] VITALS: BP 127/76; BP_SYST 22
--- NOTE | 2024-02-27 15:16 | W.PN.HOSP.TC ---
Addendum entered and electronically signed by Hernandez Fallon MD 02/27/24 22:26:
Attending Addendum-
I saw and evaluated the patient. I reviewed the resident�s note and agree with findings and plan as documented in the resident�s note. Sub: Called by nursing re rash on right side of face. Per patient states itchy and red on right side of face only.
Denies abd pain NV . Full 12 point ROS reviewed and negative except as documented Exam: Vitals reviewed in chart GEN-GEN nad heart irreg irreg lungs clear abd soft NTTP pos BS LE no edema Plan:
# Sepsis Secondary to ascending cholangitis/ choledocholithiasis
- s/p ERCP- 02/26-multiple CBD stones, complete removal by biliary
sphincterotomy and balloon extraction.
- Clear liquid diet
- trend LFT
- Hold heparin gtt x 24 hours until 3PM 02/27
- Hold eliquis for 72 hours
- cont abx for now flagyl/cipro
# Transaminitis
- resolving
- repeat LFT in am
# HFpEF
- hold lasix and spironolactone for now
- restart in am
- daily weights
- fluid restrict
# Hypothyroidism- Continue levothyroxine
# A-fib
- Continue Cardizem
- Hold Eliquis x 72 hours
- cont hep gtt 24 hours post ERCP
CODE STATUS full code
DVT prophylaxis heparin drip- on hold
Anticipated Discharge: > 48 hours
Time spent coordinating care, review of plan of care with resident, personally reviewed records in EMR, med rec, consults, notes, labs, radiology, d/w nursing GI and daughter� 57 mins
Original Note:
Today's Communication/Plan
-
Stable after ERCP procedure - stones and sludge removed
Remain off anticoagulation for 24hr
Continue Cipro & Flagyl
Reassess with labs in the AM & plan for possible discharge
Assessment / Plan
Assessment / Plan
Genet is an 83 yo F with a PMHx of Afib and HTN who presented to the EDwith RUQ, found to have Choledocholithiasis & developed Sepsis secondary to ascending cholangitis.
#Abdominal pain
#Choledocholithiasis
- CT scan to have a dilated biliary system and 3 stones in her common bile duct.
- Cover with IV metronidazole and cipro. Monitor QT as she in on BB and Cardizem
- Underwent ERCP today which revealed 'Multiple CBD stones / large amounts of sludge. Complete removal was accomplished by biliary sphincterotomy and balloon extraction.'
- Will continue to trend LFTs & resume anti-coagulation within 24 hours
- patient moved to clear liquid diet.
- If patient is stable after 24 hours, can switch to PO Eliquis and plan for discharge
#Sepsis
- Leukocytosis and tachycardia above 100, likely secondary to ascending cholangitis
- 400 mg IV Cipro (day 2) & 500 mg IV Flagyl (day 3). WBC downtrending (11.9 --> 11)
- Clinically improving, no new fevers.
- Recheck CBC in the AM
- IV fluid
- Reassess in the AM
#Right Side facial rash
- Less likely to be drug reaction as it localized and occurred after several days of Abx
- Possible contact dermatitis vs. cellulitis
- Will monitor for improvement, already on IV Abx.
#Hypertension: Continue Cardizem 120mg PO QD, Propranolol 80mg PO QD, while holding her home Lasix and Aldactone.
#Hypothyroidism: Continue levothyroxine 125 mcg PO QD
#A-fib: Continue atenolol and Cardizem with monitoring vital sign closely
- Continue to hold anticoagulation for 24hr after ERCP
DISPO:
CODE STATUS - Full Code
DVT PPX - heparin drip
Diet: Liquid Diet (see above)
Anticipated Discharge: 24 - 48 hours
Subjective/Interval History
-
No Acute overnight events.
Patient was feeling well this morning. No abdominal pain, nausea, vomiting, fevers, chills. She was urinating without issue but has not have a bowel movement since NPO. Awaiting ERCP procedure this afternoon.
When revisiting on rounds, patient was found to have an itchy rash on the Right side of her face & ear which she says happened sometime in the AM, though she did not mention it before.
Objective Data
-
Labs:
Laboratory Results
02/27/24
07:27
WBC 8.8
Hgb 11.0 L
Hct 31.4 L
Plt Count 185
Sodium 138
Potassium 3.2 L
Chloride 105
Carbon Dioxide 21 L
BUN 19 H
Creatinine 0.9
Glucose 110 H
Calcium 8.6
Total Bilirubin 2.1 H
AST 44 H
ALT 73 H
Alkaline Phosphatase 302 H
Vital Signs:
Vital Signs
Temp Pulse Resp BP Pulse Ox
97.9 F 74 17 92/72 97
02/27/24 07:47 02/27/24 07:47 02/27/24 07:47 02/27/24 07:47 02/27/24 07:47
I&O
02/26/24 02/27/24 02/28/24
06:59 06:59 06:59
Intake Total 1310 / 1310 1425 / 1425
Balance 1310 / 1310 1425 / 1425
Review of Systems
-
History Source: Patient
All other systems: Reviewed and negative
Constitutional: Reports No Symptoms
EENT: Reports No Symptoms Reported
Respiratory: Reports No Symptoms
Cardiac: Reports No Symptoms
Abdomen/GI: Reports No Symptoms
Musculoskeletal: Reports No Symptoms
Skin: Reports Rash (R side of the face & ear)
Neuro: Reports No Symptoms
Physical Exam
-
General: Well Developed, Well Nourished and No Apparent Distress
HEENT: Normocephalic, Atraumatic, PERRLA and Other (Mild scleral icterus)
Respiratory: Clear to Auscultation
Cardiac: Regular Rhythm and S1/S2
Breast: Deferred by me
GI: Soft, Nontender, Nondistended and Normal Bowel Sounds (Reduced bowel sounds)
Musculoskeletal: No Clubbing and No Cyanosis
Skin: Warm and Dry
Neuro: Awake, Alert and Oriented
[2024-02-27 15:21] VITALS: BP 110/68; BP_SYST 17
[2024-02-27 15:34] VITALS: BP 129/74; BP_SYST 16
[2024-02-27] MEDS: KCL 40 MEQ PO (16:02)
--- NOTE | 2024-02-27 16:18 | PTCARENOTE ---
Pt returned from ERCP, walked steadily from stretcher to bed, call garcia within reach and situated in bed.
[2024-02-27 23:10] VITALS: BP 156/75
[2024-02-28] MEDS: LR 1000 IV ×2 (00:50→16:20)
[2024-02-28] MEDS: FLAGYL 500 MG 100 IV ×2 (03:40→12:53)
[2024-02-28] MEDS: SYNTHROID 125 MCG PO (05:50)
[2024-02-28] MEDS: CIPRO 400 MG 200 IV (05:50)
[2024-02-28 07:00] VITALS: BP 130/78
[2024-02-28 07:07] LABS: % Basophils 0.3 % (0-2); % Eosinophils 2.3 % (0-6); % Immature Granulocytes 1.3 % (0-0.5); % Lymphocytes 13.5 % (20.5-51.1); % Monocytes 7.9 % (1.7-9.3); % Neutrophils 74.7 % (42.2-75.2); Absolute Eosinophils 0.2 10^3/uL (0-0.7); Absolute Immature Granulocytes 0.1 10^3/uL (0-0.05); Absolute Lymphocytes 1.1 10^3/uL (1.2-3.4); Absolute Monocytes 0.6 10^3/uL (0.1-0.6); Absolute Neutrophils 5.9 10^3/uL (1.4-6.5); Hematocrit 33.7 % (37.0-47.0); Hemoglobin 11.4 g/dL (12.0-16.0); Mean Corp Hgb Conc. 33.8 g/dL (33.0-37.0); Mean Corpuscular Volume 88.7 fL (81.0-99.0); Mean Platelet Volume 10.7 fL (7.4-10.4); Nucleated Red Blood Cells % 0 %; Platelet Count 219 10^3/uL (130-400); Red Cell Dist. Width 15.1 % (11.5-14.5); White Blood Cell Count 7.9 10^3/uL (4.8-10.8)
[2024-02-28] MEDS: INDERAL 80 MG PO (07:49)
[2024-02-28] MEDS: PROTONIX 40 MG PO (07:50)
[2024-02-28] MEDS: CARDIZEM CD 120 MG PO (07:50)
--- NOTE | 2024-02-28 08:18 | W.PN.HOSP.TC ---
Addendum entered and electronically signed by Hernandez Fallon MD 02/28/24 22:23:
Attending Addendum-
I saw and evaluated the patient. I reviewed the resident�s note and agree with findings and plan as documented in the resident�s note. Sub: rash on right side of face resolved, wants to go home. seen with DIL. Denies abd pain NV . Full 12 point ROS
reviewed and negative except as documented Exam: Vitals reviewed in chart GEN-GEN nad heart irreg irreg lungs clear abd soft NTTP pos BS LE no edema Plan:
# Sepsis Secondary to ascending cholangitis/ choledocholithiasis
- resolved
- s/p ERCP- 02/26-multiple CBD stones, complete removal by biliary
sphincterotomy and balloon extraction.
- Hold heparin gtt
- restart eliquis in72 hours
- cont flagyl/cipro
# Transaminitis
- resolving
- repeat LFT as op
# HFpEF
- restart lasix and spironolactone
- daily weights
- fluid restrict
# Hypothyroidism- Continue levothyroxine
# A-fib
- Continue Cardizem
- Hold Eliquis x 72 hours
- cont hep gtt 24 hours post ERCP
CODE STATUS full code
Time spent coordinating care, DC planning, review of DC plan of care with resident, transition of care, review of records, med rec/scripts sent electronically, consults, notes, d/w consultants, nursing, family, and CM� 36 mins
Original Note:
Today's Communication/Plan
-
Will be discharging today on Cipro & Flagyl for 4 days, to complete a full 7 day course of Antibiotics. She will start OAC again on 03/01 @ 3pm
Assessment / Plan
Assessment / Plan
Genet is an 83 yo F with a PMHx of Afib and HTN who presented to the EDwith RUQ, found to have Choledocholithiasis & developed Sepsis secondary to ascending cholangitis.
#Abdominal pain
#Choledocholithiasis
#Transaminitis secondary to biliary obstruction
- CT scan to have a dilated biliary system and 3 stones in her common bile duct.
- On Day 3 of IV Metronidazole & Ciprofloxacin
- Underwent ERCP 02/27/2024 which revealed 'Multiple CBD stones / large amounts of sludge. Complete removal was accomplished by biliary sphincterotomy and balloon extraction.'
- LFT trending down, no new Sx. ERCP successful.
- Per GI, patient is ok on a Low Fat Diet
- Stable post procedure, will continue to hold Eliquis for 72 hours, she can resume at home.
Patient is stable and medically clear for discharge.
#Sepsis secondary to ascending cholangitis
- Leukocytosis and tachycardia above 100, likely secondary to ascending cholangitis
- 400 mg IV Cipro (day 3) & 500 mg IV Flagyl (day 3). Leukocytosis resolved (7.9 today)
- Clinically improving, no new fevers
- IVF LR 125ml/hr
#Right Side facial rash
- Less likely to be drug reaction as it localized and occurred after several days of Abx
- Resolved today. No further management
#Hypertension: Continue Cardizem 120mg PO QD, Propranolol 80mg PO QD. OK to resume home medications on discharge.
#Hypothyroidism: Continue levothyroxine 125 mcg PO QD
#A-fib: Continue atenolol and Cardizem with monitoring vital sign closely
- Holding Eliquis for 72 hours after procedure, Restart Eliquis 5mg BID starting at 3pm on 03/01/2024
DISPO:
Will be discharging today on Cipro & Flagyl for 4 days, to complete a full 7 day course of Antibiotics. She will start OAC again on 03/01 @ 3pm
Anticipated Discharge: Today
Subjective/Interval History
-
Seen in the AM. No acute overnight events and no complaints this morning. She is ambulating well and voiding. She has not had any abdominal pain, nausea or vomiting. Her R sided facial rash has resolved.
In the afternoon she had two loose bowel movements after eating solid food. No blood in stool.
Objective Data
-
Labs:
Laboratory Results
02/28/24
06:07
WBC 7.9
Hgb 11.4 L
Hct 33.7 L
Plt Count 219
Vital Signs:
Vital Signs
Temp Pulse Resp BP Pulse Ox
97.4 F 81 16 156/75 95
02/27/24 23:10 02/27/24 23:10 02/27/24 23:10 02/27/24 23:10 02/27/24 23:10
I&O
02/27/24 02/28/24 02/29/24
06:59 06:59 06:59
Intake Total 1425 / 1425 1730 / 1730
Balance 1425 / 1425 1730 / 1730
Review of Systems
-
History Source: Patient
All other systems: Reviewed and negative
Constitutional: Reports No Symptoms
EENT: Reports No Symptoms Reported
Respiratory: Reports No Symptoms
Cardiac: Reports No Symptoms
Abdomen/GI: Reports No Symptoms
Genitourinary: Reports No Symptoms
Musculoskeletal: Reports No Symptoms
Skin: Reports No Symptoms
Neuro: Reports No Symptoms
Endocrine: Reports No Symptoms
Hematologic / Lymphatic: Reports No Symptoms
Allergy / Immunology: Reports No Symptoms
Physical Exam
-
General: Well Developed, Well Nourished and No Apparent Distress
HEENT: Normocephalic, Atraumatic, Moist Mucous Membranes, Anicteric and [place] Conjunctivae
Respiratory: Clear to Auscultation and Non Labored Respirations
Cardiac: Regular Rhythm and S1/S2
Breast: Deferred by me
GI: Soft, Nontender, Nondistended and Normal Bowel Sounds
Musculoskeletal: No Clubbing, No Cyanosis and No Edema
Skin: Warm and Dry
Neuro: Awake, Alert and Oriented
[2024-02-28 09:43] LABS: ALT (SGPT) 54 U/L (0-35); AST (SGOT) 31 U/L (14-36); Albumin 2.9 g/dl (3.5-5.0); Alkaline Phosphatase 282 U/L (38-126); Blood Urea Nitrogen 16 mg/dl (7-17); Calcium 8.3 mg/dl (8.4-10.2); Carbon Dioxide 21 mmol/L (22-30); Chloride 105 mmol/L (98-107); Direct Bilirubin 1.1 mg/dl (0.0-0.4); Estimated Creatinine Clearance 52 ml/min; Glucose 89 mg/dl (70-99); Potassium 3.8 mmol/L (3.5-5.1); Sodium 137 mmol/L (135-145); Total Bilirubin 1.9 mg/dl (0.2-1.3); eGFR > 60.00
--- NOTE | 2024-02-28 11:48 | W.PN.GI.CBS2 ---
Today's Communication / Plan
-
Low fat diet
Clinical and laboratory improvement.
Family updated bedside today. GI will sign off please call with questions
Assessment / Plan
-
Genet is an 83yo W wtih h/o afib on eliquis and cholecystectomy who was admitted with cholangitis. She had ERCP 02/26 with choledocholithiasis with complete removal was accomplished by biliary sphincterotomy and balloon extraction. Blood cultures
NGTD. Leukocytosis resolved
Impression
- Cholangitis
- Afib on anticoagulation
- S/p CYY
- Obesity
Recommendations
- Adv to low fat diet
- LFTs downtrending
- Resume eliquis 72hrs post ERCP.
Family updated at bedside. GI will sign off please call for questions
Subjective
Subjective
Date of Service: February 28, 2024
She feels well. No further abd pain. No N/V. Daughter who lives next door is bedside
Objective
Data Reviewed
Laboratory Data:
Laboratory Results
02/28/24 06:07
02/28/24 06:06
Laboratory Results
PT 24.3 Sec (11.4-14.6) H 02/25/24 20:00
INR 2.20 02/25/24 20:00
APTT 126.8 Sec (23.4-35.0) H 02/26/24 18:49
Magnesium 1.8 mg/dl (1.6-2.3) 02/26/24 09:58
Total Bilirubin 1.9 mg/dl (0.2-1.3) H 02/28/24 06:06
AST 31 U/L (14-36) 02/28/24 06:06
ALT 54 U/L (0-35) H 02/28/24 06:06
Alkaline Phosphatase 282 U/L (38-126) H 02/28/24 06:06
Lipase 94 U/L (23-300) 02/26/24 09:58
Vital Signs and I&O:
Vital Signs
Temp Pulse Resp BP Pulse Ox
97.6 F 82 18 130/78 96
02/28/24 07:00 02/28/24 07:00 02/28/24 07:00 02/28/24 07:00 02/28/24 07:00
I&O
02/27/24 02/28/24 02/29/24
06:59 06:59 06:59
Intake Total 1425 / 1425 1730 / 1730
Balance 1425 / 1425 1730 / 1730
Physical Exam
Physical Exam
GEN: No acute distress, conversant, pleasant
HEENT: anicteric, extraocular movements intact, clear oropharynx without exudates
GI: soft, non-distended, not tender to palpation, normal active bowel sounds, no hepatosplenomegaly
EXT: warm, well perfused, no edema bilaterally
NEURO: AAOx3, non-focal
--- NOTE | 2024-02-28 13:25 | CM ---
Patient seen bedside with daughter, patient reports she is being discharged today. Patient confirms she is current with [facility], update to [place] with [facility] on patient discharge. IMM reviewed, signed, placed in chart. CM will continue to follow
for all discharge planning needs.
Plan; home with WIL Feliciano
[facility]
--- NOTE | 2024-02-28 14:42 | PTCARENOTE ---
Pt. has had 2 episodes of loose stools since having her mealtray. Hospitalist notified.
[2024-02-28 15:00] VITALS: BP 134/69
[2024-02-28] MEDS: LR IV ×2 (16:15→16:19)
--- NOTE | 2024-02-28 18:25 | W.DCSUMMARY ---
Addendum entered and electronically signed by Hernandez Fallon MD 02/28/24 22:24:
Read, reviewed, and agree. See same day progress note for additional details.
Maxi Fallon MD
Original Note:
Documented by User: Naif Jacinto MD, Resident 02/28/24 18:43
Discharge Summary
Discharge Data
Date of Admission: 02/25/24
Date of Discharge: 02/28/24
-
Pending Results: No
Hospital Course
Discharging Physician : Dr. Naif Jacinto & Dr. Hernandez Fallon
Disposition : Home
Primary care physician : Unknown
Principal Discharge diagnosis :
#Abdominal pain
#Choledocholithiasis
#Transaminitis secondary to biliary obstruction
#Sepsis secondary to ascending cholangitis
Chronic Discharge diagnosis :
#Hypertension
#Hyperlipidemia
#A-Fib
Hospital Course :
83-year-old female presented to the hospital after she woke up with severe epigastric pain associated with nausea and nonbloody vomiting. Workup in the ED showed elevated LFTs while a CT abdominal and pelvis showed 3 common bile duct stone with
dilated biliary system. GI was consulted and the patient was started on Ciprofloxacin IV & Flagyl IV, was started on IVF and the patient was made NPO. A diagnosis of Choledocholithics causing acute ascending cholangitis was made, along with a
diagnosis of Sepsis and acute pancreatitis. The next day her pain began improving on the above antibiotics and her Eliquis was stopped and she was transitioned to Heparin ggt in preparation for ERCP. She went for ERCP on 02/27/2024 and tolerated the
procedure (results below). Heparin was stopped for 24 hours with instructions to resume home dose of Eliquis after 72 hours from procedure.
Chronic conditions of Hypertension, hypothyroidism and Afib were managed with home medications during this time.
Patient tolerated ERCP without issue, was transitioned to liquid diet, and then eventually cleared by GI for a low fat diet & prepped for discharge.
She was discharged home on oral Ciprofloxacin 500mg BID & Flagyl 500mg TID to be taken for four days, to complete a 7 day course. She was also instructed to begin retaking her Eliquis 5mg BID at 3pm on 03/01/2024.
Important imaging findings :
CT Abd/pelvis W Iv Cont - Status post cholecystectomy. Diffuse biliary ductal dilation. Evidence for at least 3 noncalcified common bile duct calculi.
RF Erc Mario & Santiago Ductal System - Common bile duct has been cannulated.
Procedure findings :
ERCP - Filling defects consistent with multiple stones were seen on the cholangiogram. Multiple CBD stones / large amount of sludge were found. Complete removal was accomplished by biliary sphincterotomy and balloon extraction.
Discharge Plan
-
Patient Disposition: Home (Routine Discharge)
Discharge Diagnosis/Procedures: Sepsis secondary to ascending cholangitis/choledocholithiasis
S/p ERCP with sphincterectomy
Hypertension
Hypothyroidism
Atrial fibrillation
Condition: Good
Diet: Low Fat
Activity: No restrictions
Driving Restrictions: As prior to admission
Bathing Restrictions: None
Blood Work: repeat LFT in one week
Referrals:
Raya Wesley MD [Active] - in two weeks
Jennyfer Jackson DO [Family Provider] - in less than 1 week
Additional Discharge Medication Instructions: Resume Eliquis for now, restart on 03/01 at 3 pm.
Prescriptions:
New
ciprofloxacin HCl 500 mg tablet
500 mg PO Q12H 4 Days Qty: 8 0RF
Rx Instructions:
1 Tablet taken every 12 hours for four days
metronidazole 500 mg tablet
500 mg PO Q8H 4 Days Qty: 12 0RF
Rx Instructions:
take 1 tablet, 3 times per day, for four days
Continued
propranolol 80 MG tablet
80 mg PO DAILY
levothyroxine 125 MCG tablet
125 mcg PO DAILY@06
esomeprazole magnesium [Nexium 24HR] 20 MG capsule,delayed release(DR/EC)
20 mg PO DAILY
acetaminophen 325 MG tablet
650 mg PO Q6HPRN PRN (Reason: mild pain)
multivitamin with folic acid [Tab-A-Theo] 1 TABLET tablet
1 tab PO DAILY
diltiazem HCl 120 MG capsule,extended release 24hr
120 mg PO DAILY 0RF
spironolactone 25 MG tablet
12.5 mg PO DAILY
loperamide 2 mg Capsule
2 mg PO Q4HPRN PRN (Reason: loose stool)
potassium chloride 8 mEq tablet extended release
8 meq PO DAILY
furosemide 20 mg tablet
20 mg PO NOON
vitamin E 268 mg (400 unit) Capsule
268 mg PO DAILY
loratadine [Claritin] 10 mg Tablet
10 mg PO DAILYPRN PRN (Reason: allergies)
diclofenac sodium 1 % Gel
1 ea TOPICAL BID
Patient Comments:
apply to right knee
cholecalciferol (vitamin D3) 50 mcg (2,000 unit) Tablet
100 mcg PO DAILY
Saline Nasal 50 SPRAYS/45 ML aerosol,spray
2 sprays intranasal QIDPRN PRN (Reason: dry nasal)
furosemide 20 MG tablet
60 mg PO DAILY
Held
Eliquis 5 MG tablet
5 mg PO BID
Hold Instructions: Resume on 03/01/24. HOLD ELIQUIS FOR NOW. RESTART ON 03/01 AND TAKE THE FIRST DOSE AT 3PM.
Discharge Orders:
Discharge Patient (As Directed); Ordered 02/28/24
Ordered By: Naif Jacinto
Discharge Date and Time
Discharge Date/Time: 02/28/24 17:41
Print Language: BOTSWANAN

Documented by User: Hernandez Fallon MD 02/28/24 22:20
Discharge Summary
Discharge Data
Date of Admission: 02/25/24
Date of Discharge: 02/28/24
Discharge Plan
-
Patient Disposition: Home (Routine Discharge)
Discharge Diagnosis/Procedures: Sepsis secondary to ascending cholangitis/choledocholithiasis
S/p ERCP with sphincterectomy
Hypertension
Hypothyroidism
Atrial fibrillation
Condition: Good
Diet: Low Fat
Activity: No restrictions
Driving Restrictions: As prior to admission
Bathing Restrictions: None
Blood Work: repeat LFT in one week
Referrals:
Raya Wesley MD [Active] - in two weeks
Jennyfer Jackson DO [Family Provider] - in less than 1 week
Additional Discharge Medication Instructions: Resume Eliquis for now, restart on 03/01 at 3 pm.
Prescriptions:
New
ciprofloxacin HCl 500 mg tablet
500 mg PO Q12H 4 Days Qty: 8 0RF
Rx Instructions:
1 Tablet taken every 12 hours for four days
metronidazole 500 mg tablet
500 mg PO Q8H 4 Days Qty: 12 0RF
Rx Instructions:
take 1 tablet, 3 times per day, for four days
Continued
propranolol 80 MG tablet
80 mg PO DAILY
levothyroxine 125 MCG tablet
125 mcg PO DAILY@06
esomeprazole magnesium [Nexium 24HR] 20 MG capsule,delayed release(DR/EC)
20 mg PO DAILY
acetaminophen 325 MG tablet
650 mg PO Q6HPRN PRN (Reason: mild pain)
multivitamin with folic acid [Tab-A-Theo] 1 TABLET tablet
1 tab PO DAILY
diltiazem HCl 120 MG capsule,extended release 24hr
120 mg PO DAILY 0RF
spironolactone 25 MG tablet
12.5 mg PO DAILY
loperamide 2 mg Capsule
2 mg PO Q4HPRN PRN (Reason: loose stool)
potassium chloride 8 mEq tablet extended release
8 meq PO DAILY
furosemide 20 mg tablet
20 mg PO NOON
vitamin E 268 mg (400 unit) Capsule
268 mg PO DAILY
loratadine [Claritin] 10 mg Tablet
10 mg PO DAILYPRN PRN (Reason: allergies)
diclofenac sodium 1 % Gel
1 ea TOPICAL BID
Patient Comments:
apply to right knee
cholecalciferol (vitamin D3) 50 mcg (2,000 unit) Tablet
100 mcg PO DAILY
Saline Nasal 50 SPRAYS/45 ML aerosol,spray
2 sprays intranasal QIDPRN PRN (Reason: dry nasal)
furosemide 20 MG tablet
60 mg PO DAILY
Held
Eliquis 5 MG tablet
5 mg PO BID
Hold Instructions: Resume on 03/01/24. HOLD ELIQUIS FOR NOW. RESTART ON 03/01 AND TAKE THE FIRST DOSE AT 3PM.
Discharge Orders:
Discharge Patient (As Directed); Ordered 02/28/24
Ordered By: Naif Jacinto
Discharge Date and Time
Discharge Date/Time: 02/28/24 17:41
Print Language: BOTSWANAN
== END 2024-02-28 17:41 | disposition home health service (06) | DRG 871 ==
LOC: 4 WEST ACU 18:19
PROVIDERS: Emergency Medicine; Internal Medicine; Internal Medicine Gastroenterology; Nurse Practitioner; ADMITTING PHYSICIAN Internal Medicine; ATTENDING PHYSICIAN Family Medicine; CONSULT PHYSICIAN Internal Medicine; EMERGENCY PHYSICIAN Student in an Organized Health Care Education/Training Program; FAMILY PHYSICIAN Family Medicine
PROC: 0FC98ZZ Extirpation of Matter from Common Bile Duct, Via Natural or Artificial Opening Endoscopic (ICD-10-PCS; 2024-02-27)
DX: A41.9 Sepsis, unspecified organism (principal); K85.90 Acute pancreatitis without necrosis or infection, unspecified; K80.32 Calculus of bile duct with acute cholangitis without obstruction; E03.9 Hypothyroidism, unspecified; I10 Essential (primary) hypertension; I34.1 Nonrheumatic mitral (valve) prolapse; J45.909 Unspecified asthma, uncomplicated; K83.8 Other specified diseases of biliary tract; H91.90 Unspecified hearing loss, unspecified ear; I48.91 Unspecified atrial fibrillation; K21.9 Gastro-esophageal reflux disease without esophagitis; K58.9 Irritable bowel syndrome, unspecified; M19.90 Unspecified osteoarthritis, unspecified site; R79.89 Other specified abnormal findings of blood chemistry; Z79.01 Long term (current) use of anticoagulants; Z79.890 Hormone replacement therapy; Z79.899 Other long term (current) drug therapy; Z90.49 Acquired absence of other specified parts of digestive tract; Z90.710 Acquired absence of both cervix and uterus; Z90.89 Acquired absence of other organs; Z88.0 Allergy status to penicillin; Z88.8 Allergy status to other drugs, medicaments and biological substances
CPT/HCPCS: 74177; 74330; 76000; 80053; 82248; 83605; 83690; 83735; 84484; 85025; 85027; 85610; 85730; 87040; 93005; 96374; 99285; C1769; Q9967

== ENCOUNTER → 2024-03-03 07:11 | Outpatient (REF) | payer MEDICARE, SELFPAY ==
[2024-03-03 08:04] LABS: % Eosinophils 2.4 % (0-6); % Immature Granulocytes 1.8 % (0-0.5); % Lymphocytes 15.5 % (20.5-51.1); % Monocytes 10.6 % (1.7-9.3); % Neutrophils 68.7 % (42.2-75.2); Absolute Basophils 0.1 10^3/uL (0-0.2); Absolute Eosinophils 0.2 10^3/uL (0-0.7); Absolute Immature Granulocytes 0.1 10^3/uL (0-0.05); Absolute Monocytes 0.7 10^3/uL (0.1-0.6); Absolute Neutrophils 4.6 10^3/uL (1.4-6.5); Hematocrit 36.6 % (37.0-47.0); Hemoglobin 12.5 g/dL (12.0-16.0); Mean Corp Hgb Conc. 34.2 g/dL (33.0-37.0); Mean Corpuscular Hgb 30.7 pg (27.0-31.0); Mean Corpuscular Volume 89.9 fL (81.0-99.0); Mean Platelet Volume 9.6 fL (7.4-10.4); Nucleated Red Blood Cells % 0 %; Platelet Count 273 10^3/uL (130-400); Red Blood Cell Count 4.07 10^6/uL (4.20-5.40); Red Cell Dist. Width 15.3 % (11.5-14.5); White Blood Cell Count 6.7 10^3/uL (4.8-10.8)
[2024-03-03 08:39] LABS: ALT (SGPT) 32 U/L (0-35); AST (SGOT) 35 U/L (14-36); Albumin 3.6 g/dl (3.5-5.0); Alkaline Phosphatase 185 U/L (38-126); Blood Urea Nitrogen 11 mg/dl (7-17); Calcium 8.4 mg/dl (8.4-10.2); Carbon Dioxide 28 mmol/L (22-30); Chloride 100 mmol/L (98-107); Direct Bilirubin 0.7 mg/dl (0.0-0.4); Glucose 119 mg/dl (70-99); Potassium 3.4 mmol/L (3.5-5.1); Sodium 140 mmol/L (135-145); Total Bilirubin 1.2 mg/dl (0.2-1.3); Total Protein 7.1 g/dl (6.3-8.2); eGFR 55.55
[2024-03-03 08:46] LABS: Free T4 1.39 ng/dl (0.78-2.19); Vitamin D, 25-OH*** 81.7 ng/mL (30-80)
[2024-03-03 08:59] LABS: TSH 6.27 uIU/ml (0.47-4.68)
== END ==
LOC: REG 07:11
PROVIDERS: ATTENDING PHYSICIAN Family Medicine
DX: E55.9 Vitamin D deficiency, unspecified (principal); E03.9 Hypothyroidism, unspecified; I50.31 Acute diastolic (congestive) heart failure; R73.01 Impaired fasting glucose; R74.8 Abnormal levels of other serum enzymes
CPT/HCPCS: 36415; 80053; 82248; 82306; 83036; 84439; 84443; 85025

== ENCOUNTER → 2024-04-14 07:07 | Outpatient (REF) | payer MEDICARE, SELFPAY ==
[2024-04-14 08:42] LABS: % Basophils 0.7 % (0-2); % Eosinophils 2.5 % (0-6); % Immature Granulocytes 0.5 % (0-0.5); % Lymphocytes 23.3 % (20.5-51.1); % Monocytes 10.4 % (1.7-9.3); % Neutrophils 62.6 % (42.2-75.2); Absolute Eosinophils 0.1 10^3/uL (0-0.7); Absolute Lymphocytes 1.3 10^3/uL (1.2-3.4); Absolute Monocytes 0.6 10^3/uL (0.1-0.6); Absolute Neutrophils 3.5 10^3/uL (1.4-6.5); Hematocrit 37.5 % (37.0-47.0); Hemoglobin 12.7 g/dL (12.0-16.0); Mean Corp Hgb Conc. 33.9 g/dL (33.0-37.0); Mean Corpuscular Hgb 31.4 pg (27.0-31.0); Mean Corpuscular Volume 92.6 fL (81.0-99.0); Mean Platelet Volume 10.4 fL (7.4-10.4); Nucleated Red Blood Cells % 0 %; Platelet Count 235 10^3/uL (130-400); Red Blood Cell Count 4.05 10^6/uL (4.20-5.40); Red Cell Dist. Width 14.8 % (11.5-14.5); White Blood Cell Count 5.6 10^3/uL (4.8-10.8)
[2024-04-14 09:20] LABS: Blood Urea Nitrogen 19 mg/dl (7-17); Calcium 9.2 mg/dl (8.4-10.2); Carbon Dioxide 27 mmol/L (22-30); Chloride 96 mmol/L (98-107); Glucose 99 mg/dl (70-99); Sodium 140 mmol/L (135-145); eGFR 55.55
[2024-04-14 09:25] LABS: Free T4 1.66 ng/dl (0.78-2.19)
[2024-04-14 09:39] LABS: TSH 2.36 uIU/ml (0.47-4.68)
== END ==
LOC: REG 07:07
PROVIDERS: ATTENDING PHYSICIAN Family Medicine
DX: E03.9 Hypothyroidism, unspecified (principal); K80.50 Calculus of bile duct without cholangitis or cholecystitis without obstruction; Z98.890 Other specified postprocedural states
CPT/HCPCS: 36415; 80048; 84439; 84443; 85025

== ENCOUNTER → 2024-08-04 07:03 | Outpatient (REF) | payer MEDICARE, SELFPAY ==
[2024-08-04 08:14] LABS: % Basophils 0.5 % (0-2); % Eosinophils 2.1 % (0-6); % Immature Granulocytes 0.3 % (0-0.5); % Lymphocytes 24.4 % (20.5-51.1); % Monocytes 9.3 % (1.7-9.3); % Neutrophils 63.4 % (42.2-75.2); Absolute Eosinophils 0.1 10^3/uL (0-0.7); Absolute Lymphocytes 1.4 10^3/uL (1.2-3.4); Absolute Monocytes 0.5 10^3/uL (0.1-0.6); Absolute Neutrophils 3.7 10^3/uL (1.4-6.5); Hematocrit 38.7 % (37.0-47.0); Mean Corp Hgb Conc. 33.6 g/dL (33.0-37.0); Mean Corpuscular Hgb 30.7 pg (27.0-31.0); Mean Corpuscular Volume 91.5 fL (81.0-99.0); Nucleated Red Blood Cells % 0 %; Platelet Count 215 10^3/uL (130-400); Red Blood Cell Count 4.23 10^6/uL (4.20-5.40); Red Cell Dist. Width 14.3 % (11.5-14.5); White Blood Cell Count 5.8 10^3/uL (4.8-10.8)
[2024-08-04 08:42] LABS: ALT (SGPT) 14 U/L (0-35); AST (SGOT) 22 U/L (14-36); Albumin 4.2 g/dl (3.5-5.0); Alkaline Phosphatase 68 U/L (38-126); Blood Urea Nitrogen 24 mg/dl (7-17); Calcium 9.1 mg/dl (8.4-10.2); Carbon Dioxide 28 mmol/L (22-30); Chloride 97 mmol/L (98-107); Glucose 103 mg/dl (70-99); HDL Cholesterol 29 mg/dl; LDL Cholesterol, Calculated 88 mg/dl; Potassium 3.8 mmol/L (3.5-5.1); Sodium 137 mmol/L (135-145); Total Bilirubin 1.2 mg/dl (0.2-1.3); Total Cholesterol 141 mg/dl (50-199); Total Protein 7.6 g/dl (6.3-8.2); Triglyceride 123 mg/dl (10-149); Very Low Density Lipoprotein 24 mg/dl (0-30); eGFR 55.21
[2024-08-04 08:55] LABS: Vitamin D, 25-OH*** 66.9 ng/mL (30-80)
[2024-08-04 09:09] LABS: TSH 2.08 uIU/ml (0.47-4.68)
[2024-08-04 12:31] LABS: Glycohemoglobin (HgbA1c) 6.1 % (4.0-5.6)
== END ==
LOC: REG 07:03
PROVIDERS: ATTENDING PHYSICIAN Family Medicine
DX: Z00.00 Encounter for general adult medical examination without abnormal findings (principal); I10 Essential (primary) hypertension; E03.9 Hypothyroidism, unspecified; R73.01 Impaired fasting glucose; E55.9 Vitamin D deficiency, unspecified
CPT/HCPCS: 36415; 80053; 80061; 82306; 83036; 84443; 85025

== ENCOUNTER 2025-02-04 13:41 | Inpatient (IN) | payer MEDICARE, SELFPAY ==
[2025-02-04] VITALS (16 sets, daily range): BP systolic 93–142; BP diastolic 42–79; BMI 33.3
[2025-02-04] MEDS: MORPHINE SULFATE 4 MG IV (09:09)
--- NOTE | 2025-02-04 09:12 | ED.GENMED ---
History of Present Illness
General
Chief Complaint: Abdominal Pain
Time Seen by Provider: 02/04/25 08:42
History of Present Illness
History of Present Illness:
84-year-old female with history of A-fib on Eliquis, GERD, hypertension, CHF presenting to the emergency department for abdominal discomfort. Patient reports symptoms started last evening, worsened into today notes nausea without any episodes of
vomiting. Does note some mild constipation. Reports surgical history of cholecystectomy and hysterectomy. Notes about a year ago she did have gallbladder stones with similar presentation. Denies any abnormal foods that may have precipitated
symptoms. Denies associated chest pain or difficulty breathing. Denies fever. Denies additional acute medical complaints
Past History
Past History
ED Past Medical History: Arrthythmia (Atrial fibrillation.), Asthma, GERD, HTN and Hypothyroidism
Social History
Tobacco: Non-smoker
Alcohol: None
Drug: None
Living: alone
Employment: Retired
Family History
Family History: Other (Noncontributory)
Phy Exam
Physical Exam
Physical Exam:
General: Well-appearing, no clinical signs of dehydration, nontoxic and in no acute distress
HEENT: protecting airway
Neck: appears supple
CV: Normal heart rate, regular rhythm
Resp: No accessory muscle use, no increased work of breathing, lungs clear to auscultation bilaterally
Abd: Soft and non-distended, focal tenderness to the right upper quadrant without rebound or guarding
Extremities: No deformities, no swelling
Neuro: alert, no focal neurologic deficit
: deferred
Rectal: deferred
Psych: Normal affect
Skin: Intact
Course
Orders/Labs/Results
Orders:
Orders
02/04/25 08:42
Electrocardiogram (*1) Urgent
Reason for Study: Abdominal Pain
EKG- Treatment ONCE
02/04/25 08:48
Basic Metabolic Panel Urgent
Complete Blood Count/With Diff Urgent
Lipase Urgent
02/04/25 08:59
Morphine Sulfate 4 mg IV NOW STA
US Abdomen Complete/Upper Urgent
Comment:
Reason For Exam: RUQ pain, hx biliary stones
02/04/25 09:27
Add On- LAB Urgent
Tests Added?: liver function panel
02/04/25 09:45
Comprehensive Metabolic Panel Urgent
Direct Bilirubin Urgent
Lactic Acid Urgent
Blood Culture Q30M
BETTY Source: Blood/Venous
Specimen Description:
02/04/25 10:02
Blood Culture Q30M
BETTY Source: Blood/Venous
Specimen Description:
02/04/25 10:13
0.9% Sodium Chloride 1000 ml [Nss] 1,000 ml IV BOLUS
02/04/25 11:14
Urinalysis Reflex To Culture Urgent
Date Specimen was Collected: 02/04/25
Time Specimen was Collected: 11:12
Urine Microscopic Reflex Cult Urgent
Urine Culture Urgent
BETTY Source: U
Specimen Description:
Date Specimen was Collected: 02/04/25
Time Specimen was Collected: 11:12
02/04/25 11:27
CT Abd/pelvis W Iv Cont Urgent
Comment:
Reason For Exam: upper abd pain
02/04/25 12:41
Cefepime HCl [Maxipime] 2,000 mg IV NOW STA
Abnormal Lab Results
02/04/25 02/04/25 02/04/25
08:48 09:45 11:14
WBC 28.4 H 10^3/uL
(4.8-10.8)
MCH 32.3 H pg
(27.0-31.0)
Abs Immat Gran (auto) 0.3 H 10^3/uL
(0-0.05)
Absolute Neuts (auto) 25.3 H 10^3/uL
(1.4-6.5)
Absolute Lymphs (auto) 1.1 L 10^3/uL
(1.2-3.4)
Absolute Monos (auto) 1.7 H 10^3/uL
(0.1-0.6)
Immature Gran % 1.1 H %
(0-0.5)
Neutrophils % 88.7 H %
(42.2-75.2)
Lymphocytes % 4.0 L %
(20.5-51.1)
BUN 33 H mg/dl 32 H mg/dl
(7-17) (7-17)
Creatinine 1.3 H mg/dL 1.4 H mg/dL
(0.6-1.0) (0.6-1.0)
Glucose 179 H mg/dl 162 H mg/dl
(70-99) (70-99)
Lactic Acid 2.1 H mmol/L
(0.7-2.0)
Total Bilirubin 2.0 H mg/dl
(0.2-1.3)
Ur Occult Blood Reflex 4+ A
(Negative)
Leukocyte Esterase Rfl 3+ A
(Negative)
Urine RBC 26-30 A /HPF
(0-2)
Urine WBC (Reflex) 21-25 A /HPF
(0-5)
Urine Bacteria (Reflex) Many A
(Negative)
Urine Albumin (Reflex) 3+ A
(Neg - Trace)
02/04/25 08:48
02/04/25 09:45
Vital Signs
Initial and Last Documented VS:
Initial Vital Signs
Pulse Resp
109 32
02/04/25 08:41 02/04/25 08:41
Last Documented Vital Signs
Temp Pulse Resp BP Pulse Ox
98.2 F 106 26 93/61 95
02/04/25 08:53 02/04/25 13:00 02/04/25 13:00 02/04/25 13:00 02/04/25 09:13
MDM/Problems Addressed
MDM/Problems Addressed:
84-year-old female with prior history of cholecystectomy and biliary stones presenting for upper abdominal pain and nausea. Vital signs on arrival are significant for mild tachycardia.
On exam patient is resting comfortably, no acute distress, nontoxic. On exam, focal tenderness to the right upper quadrant. On review of EMR, similar symptom presentation in February 2024, which time patient was found to have biliary stones.
Concern for repeat episode. Notes that she was jaundiced at that time, no present jaundice. No fever or change in mental status. Without present concern for ascending cholangitis. Will obtain laboratory analysis and ultrasound imaging. Morphine
administered for pain.
10:00 -patient with leukocytosis and elevated lactic acid. Liver enzymes within normal limits, however T. bili is slightly elevated. Adding on blood cultures, starting IV fluids. No concern for severe sepsis or septic shock, normal blood pressure
and a lactate less than 4. Without indication for full 30 cc/kg bolus of fluid
11:30 - Ultrasound was unable to visualize the CBD. Will plan for CT imaging.
13:00 -CT is concerning for a 3 mm stone at the UVJ with mild right hydro and perinephric stranding. Given the leukocytosis and elevated lactic acid, concern for infection. Starting antibiotics. Plan for urology consultation and admission
*Pulse Oximetry
SaO2: 95
Oxygen Mode of Delivery: Room air
Patient hypoxic: no
*EKG
Interpreted by ED Provider?: Yes
EKG Intrepretation Date: 02/04/25
EKG Intrepretation Time: 09:19
Interpretation: abnormal
Comparison EKG: no changes (02/27/24)
Heart Rate: 108
Rate: tachycardiac
Rhythm: a-fib
[place]: normal axis
QRS Pattern: normal QRS
Ischemia: no ischemia
*Critical Care Note
Total Time (30-74mins, 75-104mins- exclusive of procedures): Not Applicable
ED Attending Note
-
Portions of this chart may have been created with voice recognition software.� Occasional wrong word or��sound alike� substitutions may have occurred due to the inherent limitations of voice recognition software.
Discharge Plan
Departure
Prescriptions:
No Action
propranolol 80 MG tablet
80 mg PO DAILY
levothyroxine 125 MCG tablet
125 mcg PO DAILY@06
acetaminophen 325 MG tablet
650 mg PO Q6HPRN PRN (Reason: mild pain)
multivitamin with folic acid [Tab-A-Theo] 1 TABLET tablet
1 tab PO DAILY
diltiazem HCl 120 MG capsule,extended release 24hr
120 mg PO DAILY 0RF
spironolactone 25 MG tablet
12.5 mg PO DAILY
loperamide 2 mg Capsule
2 mg PO Q4HPRN PRN (Reason: loose stool)
potassium chloride 8 mEq tablet extended release
8 meq PO DAILY
furosemide 20 mg tablet
80 mg PO NOON
loratadine [Claritin] 10 mg Tablet
10 mg PO DAILYPRN PRN (Reason: allergies)
diclofenac sodium 1 % Gel
1 ea TOPICAL BID
Patient Comments:
apply to right knee
cholecalciferol (vitamin D3) 50 mcg (2,000 unit) Tablet
25 mcg PO DAILY
Saline Nasal 50 SPRAYS/45 ML aerosol,spray
2 sprays intranasal QIDPRN PRN (Reason: dry nasal)
Eliquis 5 MG tablet
5 mg PO BID
tramadol 50 mg Tablet
50 mg PO Q6H PRN (Reason: pain)
omeprazole 20 mg Capsule,Delayed Release(Dr/Ec)
20 mg PO DAILY
vitamin E (dl, acetate) 180 mg (400 unit) Capsule
180 mg PO DAILY
Referrals:
Jennyfer Jackson DO [Family Provider, Family Practice]
Interventions
Interventions:
*Risk Screen - Suicide Last Done: 02/04/25 08:44
*General Assessment Last Done: 02/04/25 08:44
*Neglect/Abuse Screening Last Done: 02/04/25 08:44
*ED- Fall Risk Assessment Last Done: 02/04/25 08:45
*ED COVID-19 Vaccine History Last Done: 02/04/25 08:45
EZ-Bpqhoo-Uttkmgygab Assessment Last Done: 02/04/25 08:46
Discharge Date and Time
Print Language: BELARUSIAN
[2025-02-04 09:19] LABS: Hematocrit 42.6 % (37.0-47.0); Hemoglobin 14.9 g/dL (12.0-16.0); Mean Corp Hgb Conc. 35.0 g/dL (33.0-37.0); Mean Corpuscular Volume 92.4 fL (81.0-99.0); Platelet Count 208 10^3/uL (130-400); Red Cell Dist. Width 14.0 % (11.5-14.5)
[2025-02-04 09:22] LABS: Blood Urea Nitrogen 33 mg/dl (7-17); Calcium 9.0 mg/dl (8.4-10.2); Carbon Dioxide 25 mmol/L (22-30); Chloride 99 mmol/L (98-107); Estimated Creatinine Clearance 30 ml/min; Glucose 179 mg/dl (70-99); Lipase 52 U/L (23-300); Sodium 136 mmol/L (135-145); eGFR 40.30
[2025-02-04 09:46] LABS: Nucleated Red Blood Cells % 0 %
[2025-02-04 10:13] LABS: ALT (SGPT) 17 U/L (0-35); AST (SGOT) 20 U/L (14-36); Albumin 4.1 g/dl (3.5-5.0); Alkaline Phosphatase 60 U/L (38-126); Blood Urea Nitrogen 32 mg/dl (7-17); Calcium 9.0 mg/dl (8.4-10.2); Carbon Dioxide 27 mmol/L (22-30); Chloride 100 mmol/L (98-107); Estimated Creatinine Clearance 28 ml/min; Glucose 162 mg/dl (70-99); Potassium 3.7 mmol/L (3.5-5.1); Sodium 137 mmol/L (135-145); Total Protein 7.4 g/dl (6.3-8.2); eGFR 36.87
[2025-02-04] MEDS: NSS 1000 IV ×2 (10:16→16:23)
[2025-02-04 11:33] LABS: Urine Character Slightly Cloudy (Clear)
[2025-02-04 11:47] LABS: Urine Squamous Cell 0-2 /LPF (Few)
[2025-02-04 11:48] LABS: Urine Red Blood Cell 26-30 /HPF (0-2); Urine White Cell 21-25 /HPF (0-5)
[2025-02-04] MEDS: MAXIPIME 2000 MG IV (12:57)
--- NOTE | 2025-02-04 13:08 | HPS.HSE ---
Addendum entered and electronically signed by Jules Elliott MD 02/04/25 13:45:
see update note for addendum
Original Note:
Family Physician
-
Family Physician: Jennyfer Jackson
Chief Complaint
-
right sided abdominal pain/flank pain-
History of Present Illness
84-year-old female with history of A-fib on Eliquis, GERD, hypertension, CHF presenting to the emergency department for abdominal discomfort associated with right flank pain since yesterday.she was cold last night. patient complained of burning with
urinatio, urinary frequency and urgency. Denies associated chest pain or difficulty breathing. Denies fever. denied Flores,dizzy or syncope. denied congestion, cough. denied n,v,d/
CT with right ureter stone. patient received IV cefepime, morphine, normal saline in ER. blood culture sent from ER. admitting for further managment.
Medical History
Past Medical History
Past Medical History: Reports Other
Additional Past Medical History:
Choledocholithiasis
Cholangitis
Charcot Piper tooth muscular atrophy
Hypertension
IBS
Mitral valve prolapse
Osteoarthritis
Past Surgical History: Reports Other
Additional Past Surgical History:
Appendectomy
Cholecystectomy
Hysterectomy
Social History
Tobacco: Non-smoker
Alcohol: None
Drug: None
Personal: Single
Living: Alone
Family History
Family History: Not pertinent
Allergies / Home Medications
Allergies reflects when Allergies were last updated in [facility].
Home Medications with original date entered in [facility]
Allergy/Medication List:
Allergies
Allergy/AdvReac Type Severity Reaction Status Date / Time
cortisone Allergy Unknown Verified 02/04/25 10:58
mushroom Allergy Unknown Verified 02/04/25 10:58
Penicillins Allergy Unknown Verified 08/04/25 10:58
strawberry Allergy Unknown Verified 02/04/25 10:58
tetanus toxoid, adsorbed Allergy Unknown Verified 02/04/25 10:58
Home Medications
acetaminophen 325 mg tablet 650 mg PO Q6HPRN PRN mild pain 06/26/21
levothyroxine 125 mcg tablet 125 mcg PO DAILY@06 Thyroid 06/26/21
multivitamin with folic acid 400 mcg tablet (Tab-A-Theo) 1 tab PO DAILY Supplement 06/26/21
propranolol 80 mg tablet 80 mg PO DAILY Neurological Condition 06/26/21
diltiazem HCl 120 mg capsule,extended release 24 hr 120 mg PO DAILY 07/04/21
spironolactone 25 mg tablet 12.5 mg PO DAILY Blood Pressure 03/13/22
cholecalciferol (vitamin D3) 50 mcg (2,000 unit) tablet 25 mcg PO DAILY Supplement 02/25/24
diclofenac sodium 1 % topical gel 1 ea topical BID Pain 02/25/24
furosemide 20 mg tablet 80 mg PO NOON Fluid Retention/Swelling 02/25/24
loperamide 2 mg capsule 2 mg PO Q4HPRN PRN loose stool 02/25/24
loratadine 10 mg tablet (Claritin) 10 mg PO DAILYPRN PRN allergies 02/25/24
potassium chloride 8 mEq tablet,extended release 8 meq PO DAILY Electrolyte Repletion 02/25/24
sodium chloride 0.65 % nasal spray aerosol (Saline Nasal) 2 sprays intranasal QIDPRN PRN dry nasal 02/25/24
apixaban 5 mg tablet (Eliquis) 5 mg PO BID Blood Clot Prevention/Tx 02/26/24
Held on 02/28/24. Instructions: Resume on 03/01/24. HOLD ELIQUIS FOR NOW. RESTART ON 03/01 AND TAKE THE FIRST DOSE AT 3PM.
omeprazole 20 mg capsule,delayed release 20 mg PO DAILY 02/04/25
tramadol 50 mg tablet 50 mg PO Q6H PRN pain 02/04/25
vitamin E (dl, acetate) 180 mg (400 unit) capsule 180 mg PO DAILY 02/04/25
Review of Systems
-
Constitutional: Reports No Symptoms
EENT: Reports No Symptoms
Respiratory: Reports No Symptoms
Cardiac: Reports No Symptoms
Abdomen/GI: Reports Abdominal Pain
: Reports Flank Pain, Difficulty Voiding and Urgency
Musculoskeletal: Reports No Symptoms
Skin: Reports No Symptoms
Neurological: Reports No Symptoms
Endocrine: Reports No Symptoms
Hematologic/Lymphatic: Reports No Symptoms
Psych: Reports No Symptoms
Physical Exam
Vital Signs
Vital Signs
Temp Pulse Resp BP Pulse Ox
98.2 F 107 19 142/74 95
02/04/25 08:53 02/04/25 11:08 02/04/25 11:08 02/04/25 11:08 02/04/25 09:13
Physical Exam
General: Well Developed, Well Nourished and No Apparent Distress
HEENT: NormoCephalic, Moist mucous membranes and Atraumatic
Respiratory: Clear
Cardiac: S1/S2 and Regular Rhythm; No Murmur or Rub
GI: Soft, Non Tender, Non Distended and Normal Bowel Sounds; No Organomegaly
Rectal: Deferred by Provider
Musculoskeletal: No Clubbing, No Cyanosis and No Edema
Skin: No Rash
Neuro: AO x 3 and Nonfocal/grossly intact
Psych: Calm
Laboratory Results
-
02/04/25 08:48
02/04/25 09:45
Laboratory Results
Lactic Acid 2.1 mmol/L (0.7-2.0) H 02/04/25 09:45
Total Bilirubin 2.0 mg/dl (0.2-1.3) H 02/04/25 09:45
AST 20 U/L (14-36) 02/04/25 09:45
ALT 17 U/L (0-35) 02/04/25 09:45
Alkaline Phosphatase 60 U/L (38-126) 02/04/25 09:45
Lipase 52 U/L (23-300) 02/04/25 08:48
Data Reviewed
-
CT Scan: Report Reviewed by me
Lab Data: Labs Reviewed by me
Impression/Plan
-
# Nausea presents in the right abdominal pain concern for infected right UVJ stone
# Sepsis as evident by WBCs 28 and lactate 2.1 and tachycardia
- Will keep patient n.p.o.
- Dilaudid p.o. for pain
- Strain urine
- Fluids continued
- Trend lactic-WBC
- Tylenol as needed for fever
-IV cefepime continued
-Blood culture sent from ER
- Urology consulted
- CT abdomen pelvis with impression of Mild to moderate RIGHT hydronephrosis and hydroureter secondary to a 3 mm stone at the right UVJ. Moderate amount of perinephric and periureteral stranding with mild thickening and enhancement of the
urothelium, likely reactive in nature with superimposed infection not excluded. Mild dilatation of biliary tree, overall improved compared to the prior CT from 02/25/2024. No intraductal calculi appreciated.
- Abdominal ultrasound with impression of Status post cholecystectomy. The common bile duct is unable to be visualized. As warranted, further evaluation could be considered with CT scan or MRI/MRCP.Mild right pelvicalyceal dilation, which appears
new from prior CT examination of February 2024.
# Acute kidney injury secondary to hydronephrosis/hydroureter with a r 3 mm stone at the right UVJ
- Creatinine 1.4
- Fluids continued
- BMP in a.m.
# History of cholangitis/choledocholithiasis
- s/p ERCP- 02/26-multiple CBD stones, complete removal by biliary sphincterotomy and balloon extraction.
# HFpEF
- hold Lasix,spironolactone
- daily weights
- ECHO in 2022 with EF 60-65
#GERD
-PPI continued
# Hypothyroidism- Continue levothyroxine
# A-fib
- Continue Cardizem, propranolol
- Hold Eliquis
#DVT prophylaxis
-scd
#CODE status
-full code
--- NOTE | 2025-02-04 13:45 | W.PN.UPDATE ---
Update Note
Progress Note Update
I saw and examined the patient.
The MARKETING EDITOR Sheng's note was reviewed and I agree with the note.
Comment: 84 y/o F, hx of Afib on Eliquis, hx of HFpEF, HTN presents to ER with R flank/abdominal pain since yesterday, and worsening into this morning. She reports buring with urination, frequency, urgency. No other complaints. In ER, she met sepsis
criteria with lactic acidosis, leukocytosis, tachycardia - and found to have UTI. CT showed R UVJ 3mm stone with hydronephrosis. Urology urgently consulted and will take to OR now for intervention
Exam:
General: Well Developed, Well Nourished and No Apparent Distress
HEENT: Normocephalic, Moist mucous membranes and Atraumatic
Respiratory: Clear
Cardiac: S1/S2 and Regular Rhythm; No Murmur or Rub
GI: Soft, Non Tender, Non Distended and Normal Bowel Sounds; No Organomegaly
Rectal: Deferred by Provider
Musculoskeletal: No Clubbing, No Cyanosis and No Edema
Skin: No Rash
Neuro: AO x 3 and Nonfocal/grossly intact
Psych: Calm
Plan: Admit. Plan for OR urgently with Dr. Hamilton for intervention of R UVJ 3mm stone with hydronephrosis. NPO. Hold Eliquis. Pain control. Sepsis protocol IVF and trend lactate. monitor volume status with hx of CHF. Cefepime started; follow blood
and urine cultures. AM labs. Hold nephrotoxins for mild RAQUEL. SCDS for DVT ppx.
--- NOTE | 2025-02-04 14:01 | W.SUR.PREOP ---
Pre-Operative Surgical Note
-
I have examined this patient prior to the performance of the scheduled procedure.
The patient's condition is unchanged from the time of the current History and
Physical and the patient is able to undergo the scheduled procedure.
Evolving urosepsis - HD stable, significant leukocytosis, elevated LA.
CT imaging => 3 mm right UVJ stone w/ high-grade obstructive uropathy.
UA indicative of UTI.
Reviewed emergent nature of procedure w/ patient in preop holding.
Reviewed potential risks and complications of ureteroscopy/stone extraction/stent placement in detail including but not limited to urosepsis, bleeding, ureteral/bladder injury, risk of ureteral stricture formation, need for additional emergent
procedures/surgeries.
- To OR emergently for cysto + right stent placement (possible stone extraction)
- RIGHT laterality marked
- Continue broad-spectrum IV abx
- Surgical consent signed on chart
D/w pt at bedside.
--- NOTE | 2025-02-04 14:47 | W.IMMPOSTOP ---
Surgical Immed Post Op Note
-
Primary Surgeon: Joy
Pre-op Diagnosis: Urosepsis, obstructing right UVJ stone
Post-op Diagnosis: Same
Procedure Performed: cysto, right URS/stone extraction/RGP/stent placement
Anesthesia Type: LMA
Specimen / Cultures: Stone for analysis/None
Estimated Blood Loss: Negligible
Drains: 6Fr x 20 cm JJ right ureteral stent
Complications: None
Operative Findings: Low-lying right kidney noted on KUB and RGP. Final KUB and cystoscopy confirming appropriate position of right ureteral stent. Global patchy cystitis indicative of cUTI w/ purulent UOP from right UO.
--- NOTE | 2025-02-04 15:55 | PTCARENOTE ---
Patient arrived from PACU in a bed on 2L O2 and telemetry with IVF infusing, VSS, no complaints of pain.
[2025-02-04] MEDS: MAXIPIME 1000 MG IV (21:53)
[2025-02-04] MEDS: STERILE WATER FOR INJECTION 10 ML IV (21:54)
[2025-02-04] MEDS: DICLOFENAC 1% TOPICAL GEL TOPICAL (21:59)
--- NOTE | 2025-02-05 02:18 | PTCARENOTE ---
Call from micro + blood cultures. Communicated to [facility] via TT.
[2025-02-05 02:19] VITALS: BMI 33.3
[2025-02-05 03:00] VITALS: BP 118/56
[2025-02-05] MEDS: STERILE WATER FOR INJECTION 10 ML IV ×3 (06:09→21:22)
[2025-02-05] MEDS: MAXIPIME 1000 MG IV ×3 (06:09→21:22)
[2025-02-05] MEDS: SYNTHROID 125 MCG PO (06:10)
[2025-02-05 07:30] VITALS: BP 128/70
[2025-02-05] MEDS: KCL 10 MEQ PO (07:54)
[2025-02-05] MEDS: CARDIZEM CD 120 MG PO (07:54)
[2025-02-05] MEDS: PROTONIX 40 MG PO (07:54)
[2025-02-05] MEDS: DICLOFENAC 1% TOPICAL GEL TOPICAL ×4 (07:55→20:05)
[2025-02-05] MEDS: INDERAL 80 MG PO (07:56)
--- NOTE | 2025-02-05 07:59 | W.PN.HOSP.TC ---
Today's Communication/Plan
-
cont abx
pain control
Eliquis to resume tonight
Follow Culture sensitivities
Assessment / Plan
Assessment / Plan
Physical Exam
General: No acute distress, appears comfortable
HEENT: NormoCephalic, Moist mucous membranes and Atraumatic
Respiratory: Clear
Cardiac: S1/S2 and Regular Rhythm; No Murmur or Rub
GI: Soft, Non Tender, Non Distended and Normal Bowel Sounds; No Organomegaly
Musculoskeletal: No Clubbing, No Cyanosis and No Edema
Skin: No Rash
Neuro: AO x 3 Conversant Coherent
Psych: Calm
84F leona Eliquis GERD HTN HFpEF GERD Hypothyroidism here for Rt Ureter Stone Obstruction with associate sepsis and RAQUEL s/p stent placement and stone removal.
# Infected right UVJ stone obstruction
#Pyelonephritis
#Complicated UTI
# Sepsis Leukocytosis Tachycardia
#Proteus Bacteremia
- CT abd/pelvis noted Mild to moderate RIGHT hydronephrosis and hydroureter secondary to a 3 mm stone at the right UVJ. Moderate amount of perinephric and periureteral stranding with mild thickening and enhancement of the urothelium, likely reactive
in nature with superimposed infection not excluded. Mild dilatation of biliary tree, overall improved compared to the prior CT from 02/25/2024. No intraductal calculi appreciated.
- Abdominal ultrasound noted status post cholecystectomy.
- Urology consult appreciated s/p stent placement and stone removal 02/04 outpt follow up for stent removal in 2 weeks
- Dilaudid p.o. for pain
- IVF support while NPO
- Lactic Acidosis resolved
- WBC trending down
- Tylenol as needed for fever
-IV cefepime continued
-Blood and Urine cultures Pos for Proteus, follow up sensitivities,
- Repeat Blood Cx result pending
# Acute kidney injury secondary to hydronephrosis/hydroureter with a r 3 mm stone at the right UVJ
- Creatinine 1.4 since trending down
- Fluids continued
# HFpEF
-appears euvolemic at this time
- Lasix,spironolactone resumed with holding parameters
- daily weights
- ECHO in 2022 with EF 60-65
#GERD
-PPI continued
# Hypothyroidism- Continue levothyroxine
# A-fib
- Continue Cardizem, propranolol
- Eliquis resumed post-procedure as above
#DVT prophylaxis
-scd
#CODE status
-full code
I spent a total of 50 minutes with the patient or on the floor. More than 50% of this time involved counseling and coordination of care.
Anticipated Discharge: 24 - 48 hours
Subjective/Interval History
-
Date of Service: February 05, 2025
No acute distress, overall reports feeling well since stent placement and stone removal. Sitting up comfortably in bed.
Objective Data
-
Labs:
Laboratory Results
02/05/25
06:00
WBC Pending
Hgb Pending
Hct Pending
Plt Count Pending
Sodium Pending
Potassium Pending
Chloride Pending
Carbon Dioxide Pending
BUN Pending
Creatinine Pending
Glucose Pending
Calcium Pending
Total Bilirubin Pending
AST Pending
ALT Pending
Alkaline Phosphatase Pending
Vital Signs:
Vital Signs
Temp Pulse Resp BP Pulse Ox
97.5 F 89 16 118/56 93
02/05/25 03:00 02/05/25 03:00 02/05/25 03:00 02/05/25 03:00 02/05/25 03:00
I&O
02/04/25 02/05/25 02/06/25
06:59 06:59 06:59
Intake Total 950 / 950
Balance 950 / 950
[2025-02-05] MEDS: NSS 1000 IV (08:02)
[2025-02-05 09:09] VITALS: BMI 33.3
[2025-02-05 09:16] LABS: Hematocrit 38.4 % (37.0-47.0); Hemoglobin 12.9 g/dL (12.0-16.0); Mean Corp Hgb Conc. 33.6 g/dL (33.0-37.0); Mean Corpuscular Volume 93.7 fL (81.0-99.0); Platelet Count 172 10^3/uL (130-400); Red Cell Dist. Width 13.9 % (11.5-14.5)
--- NOTE | 2025-02-05 10:19 | W.PN.URO.CBU ---
Today's Communication / Plan
-
Continue IV antibiotics - treatment course for urosepsis/bacteremia
F/U in 2 weeks for cysto + stent removal in office (Dr. Hamilton)
Assessment / Plan
-
Proteus urosepsis
Proteus bacteremia
Obstructing right UVJ stone
Post Op Day:
8/4: s/p right URS/stone extraction/RGP/stent placement
WBC downtrending
UCx => Proteus
BCx x1 => Proteus
Diagnosis
-
Date of Service: February 05, 2025
-
Patient Diagnosis:
Proteus urosepsis
Proteus bacteremia
Obstructing right UVJ stone
Post Op Day:
8: s/p right URS/stone extraction/RGP/stent placement
Subjective
-
Tolerating diet.
HDS stable.
Voiding w/o issues.
Objective
-
Vital Signs
Temp Pulse Resp BP Pulse Ox
97.8 F 99 16 128/70 96
02/05/25 07:30 02/05/25 07:56 02/05/25 07:30 02/05/25 07:56 02/05/25 08:15
Intake and Output
02/04/25 02/05/25 02/06/25
06:59 06:59 06:59
Intake Total 950 / 950
Balance 950 / 950
Intake:
IV fluids (Total) 950 / 950
normosol 50 / 50
Other:
Number of approximated MODERATE 1
amounts of urine
Number of approximated LARGE 1
amounts of urine
Laboratory Results
02/05/25 09:03
Physical Exam
-
General - well developed, well nourished, no acute distress
Abdomen - soft, non-tender, no CVAT
Skin - warm & dry with no rash
Extremities - no clubbing, no cyanosis, no edema
Care Review
Data Reviewed
Discussed with: Hospitalist and Family
CT Scan: Report Pers Reviewed and Image Pers Reviewed
Total Time Spent with Patient (in minutes): 40
[2025-02-05 11:10] VITALS: BP 104/49
--- NOTE | 2025-02-05 12:45 | CM ---
Addendum entered by Luci Young 02/05/25 15:15:
referral sent via all scripts to [facility], await response.
Original Note:
Patient seen bedside, on [address]. Patient stated that she lives independently in a single story home, four steps down to enter. Patient reports she has seemed to receive services through [facility] every 5 months. Patient would like to have a referral
sent to [facility] for VN services at discharge. Patient denies SNF. Patient reports she has a walker at home. Patient confirms PCP Jennyfer Jackson, pharmacy [facility] Patient stated that her daughter lives nearby and is supportive.
CM will continue to follow for all discharge planning needs.
Plan; home with referral to [facility], pending medical treatment plan
[2025-02-05 13:23] LABS: ALT (SGPT) 17 U/L (0-35); AST (SGOT) 22 U/L (14-36); Albumin 3.4 g/dl (3.5-5.0); Alkaline Phosphatase 60 U/L (38-126); Blood Urea Nitrogen 30 mg/dl (7-17); Calcium 8.2 mg/dl (8.4-10.2); Carbon Dioxide 26 mmol/L (22-30); Chloride 103 mmol/L (98-107); Estimated Creatinine Clearance 36 ml/min; Glucose 111 mg/dl (70-99); Potassium 4.0 mmol/L (3.5-5.1); Sodium 138 mmol/L (135-145); Total Protein 6.2 g/dl (6.3-8.2); eGFR 49.24
[2025-02-05 15:25] VITALS: BP 118/67
[2025-02-05 19:00] VITALS: BP 119/62
[2025-02-05] MEDS: ELIQUIS 5 MG PO (20:00)
[2025-02-05 23:00] VITALS: BP 116/62
[2025-02-06] VITALS (7 sets, daily range): BP systolic 115–154; BP diastolic 58–90; PULSE 65; O2SAT 97; BMI 33.3
[2025-02-06] MEDS: NSS 1000 IV (00:35)
[2025-02-06] MEDS: STERILE WATER FOR INJECTION 10 ML IV ×2 (05:13→13:56)
[2025-02-06] MEDS: SYNTHROID 125 MCG PO (05:13)
[2025-02-06] MEDS: MAXIPIME 1000 MG IV ×2 (05:13→13:57)
--- NOTE | 2025-02-06 07:34 | W.PN.HOSP.TC ---
Today's Communication/Plan
-
cont IV abx
likely discharge tomorrow if remains stable/cont to improve
Assessment / Plan
Assessment / Plan
Physical Exam
General: No acute distress, appears comfortable
HEENT: NormoCephalic, Moist mucous membranes and Atraumatic
Respiratory: Clear
Cardiac: S1/S2 and Regular Rhythm; No Murmur or Rub
GI: Soft, Non Tender, Non Distended and Normal Bowel Sounds; No Organomegaly
Musculoskeletal: No Clubbing, No Cyanosis and No Edema
Skin: No Rash
Neuro: AO x 3 Conversant Coherent
Psych: Calm
84F leona Eliquis GERD HTN HFpEF GERD Hypothyroidism here for Rt Ureter Stone Obstruction with associate sepsis and RAQUEL s/p stent placement and stone removal.
# Infected right UVJ stone obstruction
#Pyelonephritis
#Complicated UTI
# Sepsis Leukocytosis Tachycardia
#Proteus Bacteremia
- CT abd/pelvis noted Mild to moderate RIGHT hydronephrosis and hydroureter secondary to a 3 mm stone at the right UVJ. Moderate amount of perinephric and periureteral stranding with mild thickening and enhancement of the urothelium, likely reactive
in nature with superimposed infection not excluded. Mild dilatation of biliary tree, overall improved compared to the prior CT from 02/25/2024. No intraductal calculi appreciated.
- Abdominal ultrasound noted status post cholecystectomy.
- Urology consult appreciated s/p stent placement and stone removal 02/04 outpt follow up for stent removal in 2 weeks
- Dilaudid p.o. for pain
- IVF support while NPO, since completed
- Lactic Acidosis resolved
- WBC trending down
- Tylenol as needed for fever
- Blood and Urine cultures Pos for Proteus, sensitivities appreciated
- IV cefepime de-escalated to Cefazolin
- Repeat Blood Cx NGTD
# Acute kidney injury secondary to hydronephrosis/hydroureter with a r 3 mm stone at the right UVJ
- Creatinine 1.4 since trended down
- RAQUEL resolved
# HFpEF
-appears euvolemic at this time
- Lasix,spironolactone resumed with holding parameters
- daily weights
- ECHO in 2022 with EF 60-65
#GERD
-PPI continued
# Hypothyroidism- Continue levothyroxine
# A-fib
- Continue Cardizem, propranolol
- Eliquis resumed post-procedure as above
PT eval appreciated no needs
#DVT prophylaxis
-Eliquis
#CODE status
-full code
I spent a total of 45 minutes with the patient or on the floor. More than 50% of this time involved counseling and coordination of care.
Anticipated Discharge: Within 24 hours
Subjective/Interval History
-
Date of Service: February 06, 2025
No acute distress, overall reports feeling well. Denies new acute issues at this time.
Objective Data
-
Labs:
Laboratory Results
02/06/25
06:00
WBC Pending
Hgb Pending
Hct Pending
Plt Count Pending
Sodium Pending
Potassium Pending
Chloride Pending
Carbon Dioxide Pending
BUN Pending
Creatinine Pending
Glucose Pending
Calcium Pending
Total Bilirubin Pending
AST Pending
ALT Pending
Alkaline Phosphatase Pending
Vital Signs:
Vital Signs
Temp Pulse Resp BP Pulse Ox
98.3 F 87 16 115/63 94
02/06/25 03:00 02/06/25 03:00 02/06/25 03:00 02/06/25 03:00 02/06/25 03:00
I&O
02/05/25 02/06/25 02/07/25
06:59 06:59 06:59
Intake Total 950 / 950 2160 / 2160
Balance 950 / 950 0 / 2159
[2025-02-06] MEDS: ELIQUIS 5 MG PO ×2 (08:28→21:28)
[2025-02-06] MEDS: DICLOFENAC 1% TOPICAL GEL TOPICAL (08:28)
[2025-02-06] MEDS: CARDIZEM CD 120 MG PO (08:28)
[2025-02-06] MEDS: INDERAL 80 MG PO (08:29)
[2025-02-06] MEDS: PROTONIX 40 MG PO (08:29)
[2025-02-06] MEDS: THERAGRAN 1 TABLET PO (08:29)
[2025-02-06] MEDS: VITAMIN D3 (cholecalciferol) 25 MCG PO (08:29)
--- NOTE | 2025-02-06 11:10 | CM ---
Addendum entered by Ida Kim RN 02/06/25 16:28:
IMM reviewed.
Original Note:
Reviewed the chart notes and spoke with the patient at the bedside. CM continues to be available to patient/family and is monitoring medical plan for needs at discharge.
Plan: Discharge to home with [facility] services.
Fax report to: [phone]
[2025-02-06 12:15] LABS: Hematocrit 36.8 % (37.0-47.0); Hemoglobin 12.2 g/dL (12.0-16.0); Mean Corp Hgb Conc. 33.2 g/dL (33.0-37.0); Mean Corpuscular Volume 94.8 fL (81.0-99.0); Platelet Count 179 10^3/uL (130-400); Red Cell Dist. Width 14.1 % (11.5-14.5)
[2025-02-06 13:39] LABS: ALT (SGPT) 17 U/L (0-35); AST (SGOT) 23 U/L (14-36); Albumin 3.5 g/dl (3.5-5.0); Alkaline Phosphatase 61 U/L (38-126); Blood Urea Nitrogen 24 mg/dl (7-17); Calcium 8.3 mg/dl (8.4-10.2); Carbon Dioxide 19 mmol/L (22-30); Chloride 108 mmol/L (98-107); Estimated Creatinine Clearance 49 ml/min; Glucose 113 mg/dl (70-99); Magnesium 2.4 mg/dl (1.6-2.3); Potassium 3.9 mmol/L (3.5-5.1); Sodium 136 mmol/L (135-145); Total Protein 6.5 g/dl (6.3-8.2); eGFR > 60.00
[2025-02-06] MEDS: LASIX 80 MG PO (13:57)
[2025-02-06] MEDS: KCL 10 MEQ PO (13:57)
[2025-02-06] MEDS: ALDACTONE 12.5 MG PO (13:58)
[2025-02-06] MEDS: ANCEF 5 IV (21:28)
[2025-02-06] MEDS: DICLOFENAC 1% TOPICAL GEL 100 GRAM TOPICAL (21:31)
[2025-02-07 03:45] VITALS: BP 143/86
[2025-02-07 05:52] VITALS: BMI 32.1
[2025-02-07] MEDS: ANCEF 5 IV (06:01)
[2025-02-07] MEDS: SYNTHROID 125 MCG PO (06:02)
[2025-02-07 07:28] LABS: Hematocrit 36.1 % (37.0-47.0); Hemoglobin 12.4 g/dL (12.0-16.0); Mean Corp Hgb Conc. 34.3 g/dL (33.0-37.0); Mean Corpuscular Volume 91.4 fL (81.0-99.0); Platelet Count 192 10^3/uL (130-400); Red Cell Dist. Width 13.5 % (11.5-14.5)
--- NOTE | 2025-02-07 07:28 | W.PN.HOSP.TC ---
Today's Communication/Plan
-
Discharge
Assessment / Plan
Assessment / Plan
Physical Exam
General: No acute distress, appears comfortable
HEENT: NormoCephalic, Moist mucous membranes and Atraumatic
Respiratory: Clear
Cardiac: S1/S2 and Regular Rhythm; No Murmur or Rub
GI: Soft, Non Tender, Non Distended and Normal Bowel Sounds; No Organomegaly
Musculoskeletal: No Clubbing, No Cyanosis and No Edema
Skin: No Rash
Neuro: AO x 3 Conversant Coherent
Psych: Calm
84F leona Eliquis GERD HTN HFpEF GERD Hypothyroidism here for Rt Ureter Stone Obstruction with associate sepsis and RAQUEL s/p stent placement and stone removal.
# Infected right UVJ stone obstruction
#Pyelonephritis
#Complicated UTI
# Sepsis Leukocytosis Tachycardia
#Proteus Bacteremia
- CT abd/pelvis noted Mild to moderate RIGHT hydronephrosis and hydroureter secondary to a 3 mm stone at the right UVJ. Moderate amount of perinephric and periureteral stranding with mild thickening and enhancement of the urothelium, likely reactive
in nature with superimposed infection not excluded. Mild dilatation of biliary tree, overall improved compared to the prior CT from 02/25/2024. No intraductal calculi appreciated.
- Abdominal ultrasound noted status post cholecystectomy.
- Urology consult appreciated s/p stent placement and stone removal 02/04 outpt follow up for stent removal in 2 weeks
- Dilaudid prn (has not required since procedure)
- completed IVF support
- Lactic Acidosis resolved
- Leukocytosis resolved
- Tylenol as needed for fever
- Blood and Urine cultures Pos for Proteus, sensitivities appreciated
- IV cefepime de-escalated to Cefazolin, later further de-escalated to keflex 1000 mg Q8h for 14 days, per discussion with infectious disease.
- Repeat Blood Cx NGTD
# Acute kidney injury secondary to hydronephrosis/hydroureter with a r 3 mm stone at the right UVJ
- Creatinine 1.4 since trended down
- RAQUEL resolved
# HFpEF
-appears euvolemic at this time
- Lasix,spironolactone resumed with holding parameters
- daily weights
- ECHO in 2022 with EF 60-65
#GERD
-PPI continued
# Hypothyroidism- Continue levothyroxine
# A-fib
- Continue Cardizem, propranolol
- Eliquis resumed post-procedure as above
PT eval appreciated no needs
#DVT prophylaxis
-Eliquis
#CODE status
-full code
Medically stable for discharge home with outpatient follow up recommendations.
Discussed with patient and patient's daughter Nahomy
Total Time Preparing Discharge ___40____ minutes including examination of the patient, summary of the hospital stay, instructions for continuing care to all relevant caregivers; and preparation of discharge records, prescriptions, and referral
forms if necessary.
Anticipated Discharge: Today
Subjective/Interval History
-
Date of Service: February 07, 2025
No acute distress, sitting up comfortably in chair. Overall reports feeling well. Denies new acute issues. Eager to go home. Daughter Nahomy present during evaluation.
Objective Data
-
Labs:
Laboratory Results
02/07/25
06:42
WBC Pending
Hgb Pending
Hct Pending
Plt Count Pending
Sodium Pending
Potassium Pending
Chloride Pending
Carbon Dioxide Pending
BUN Pending
Creatinine Pending
Glucose Pending
Calcium Pending
Total Bilirubin Pending
AST Pending
ALT Pending
Alkaline Phosphatase Pending
Vital Signs:
Vital Signs
Temp Pulse Resp BP Pulse Ox
98.5 F 91 16 143/86 94
02/07/25 03:45 02/07/25 03:45 02/07/25 03:45 02/07/25 03:45 02/07/25 03:45
I&O
02/06/25 02/07/25 02/08/25
06:59 06:59 06:59
Intake Total 2160 / 2160 1080 / 1080
Balance 2160 / 2160 1080 / 1080
[2025-02-07 07:30] VITALS: BP 130/74
[2025-02-07 07:46] LABS: ALT (SGPT) 17 U/L (0-35); AST (SGOT) 21 U/L (14-36); Albumin 3.3 g/dl (3.5-5.0); Alkaline Phosphatase 61 U/L (38-126); Blood Urea Nitrogen 22 mg/dl (7-17); Calcium 8.6 mg/dl (8.4-10.2); Carbon Dioxide 27 mmol/L (22-30); Chloride 104 mmol/L (98-107); Estimated Creatinine Clearance 48 ml/min; Glucose 112 mg/dl (70-99); Magnesium 2.0 mg/dl (1.6-2.3); Potassium 3.2 mmol/L (3.5-5.1); Sodium 138 mmol/L (135-145); Total Protein 6.4 g/dl (6.3-8.2); eGFR > 60.00
[2025-02-07] MEDS: DICLOFENAC 1% TOPICAL GEL TOPICAL (08:11)
[2025-02-07] MEDS: VITAMIN D3 (cholecalciferol) 25 MCG PO (09:13)
[2025-02-07] MEDS: PROTONIX 40 MG PO (09:13)
[2025-02-07] MEDS: KCL 10 MEQ PO (09:13)
[2025-02-07] MEDS: ELIQUIS 5 MG PO (09:13)
[2025-02-07] MEDS: THERAGRAN 1 TABLET PO (09:14)
[2025-02-07] MEDS: ALDACTONE 12.5 MG PO (09:14)
[2025-02-07] MEDS: CARDIZEM CD 120 MG PO (09:18)
[2025-02-07] MEDS: INDERAL 80 MG PO (09:18)
[2025-02-07] MEDS: KCL 40 MEQ PO (09:24)
--- NOTE | 2025-02-07 10:11 | CM ---
Reviewed the chart notes and spoke with the patient at the bedside. Patient anticipates being discharged to home today. Patient's daughter will provide transportation. CM continues to be available to patient/family and is monitoring medical plan
for needs at discharge.
Plan: Discharge to home with [facility] services.
Fax report to: [phone]
[2025-02-07] MEDS: KEFLEX 1000 MG PO (10:39)
[2025-02-07 11:25] VITALS: BP 115/71
--- NOTE | 2025-02-07 11:51 | W.DCSUMMARY ---
Discharge Summary
Discharge Data
Date of Admission: 02/04/25
Date of Discharge: 02/07/25
-
Pending Results: Yes (official blood culture results)
Hospital Course
84F Afib Eliquis GERD HTN HFpEF GERD Hypothyroidism here for Rt Ureter Stone Obstruction with associate sepsis and RAQUEL s/p stent placement and stone removal. Infected right UVJ stone obstruction, Pyelonephritis, Complicated UTI, Sepsis Leukocytosis
Tachycardia. Proteus Bacteremia. CT abd/pelvis noted Mild to moderate RIGHT hydronephrosis and hydroureter secondary to a 3 mm stone at the right UVJ. Moderate amount of perinephric and periureteral stranding with mild thickening and enhancement
of the urothelium, likely reactive in nature with superimposed infection not excluded. Mild dilatation of biliary tree, overall improved compared to the prior CT from 02/25/2024. No intraductal calculi appreciated. Abdominal ultrasound noted status
post cholecystectomy. Urology consult appreciated s/p stent placement and stone removal 02/04 outpt follow up for stent removal in 2 weeks. Dilaudid prn (has not required since procedure). Completed IVF support. Lactic Acidosis resolved.
Leukocytosis resolved. Blood and Urine cultures Pos for Proteus, sensitivities appreciated. IV cefepime de-escalated to Cefazolin, later further de-escalated to keflex 1000 mg Q8h for 14 days, per discussion with infectious disease. Repeat Blood
Cx NGTD. RAQUEL resolved. Medically stable, patient was discharged home with outpatient follow up recommendations.
Discharge Plan
-
Patient Disposition: Home with Home Care
Discharge Diagnosis/Procedures: Infected right Kidney stone obstruction
Pyelonephritis
Complicated Urinary Tract infection
Sepsis Leukocytosis Tachycardia (resolved)
Proteus Bacteremia
Acute Kidney Injury resolved
Condition: Fair
Diet: Regular
Activity: As tolerated and With Walker
Driving Restrictions: As prior to admission
Bathing Restrictions: None
Blood Work: Repeat CBC and BMP with primary care provider in 1 week of discharge.
Others Tests: Follow up with Urology in 2 weeks for cystoscopy and stent removal
Activity Restrictions/Additional Instructions:
Follow up with primary care provider in 1 week of discharge, Urology in 2 weeks of discharge, and Infectious Disease in 2-4 weeks of discharge.
14 days Keflex 1000 mg three times a day has been prescribed to complete treatment complicated urinary tract infection, Proteus Bacteremia.
Please take medications as prescribed/recommended and follow up with primary care provider and/or other healthcare provider involved in your care for further adjustments to your medication regimen as necessary.
Referrals:
Kenneth Hamilton MD [Active, Urology] - in two weeks
Jennyfer Jackson DO [Family Provider, Family Practice] - in one week
Krista Koenig MD [Active, Infectious Diseases] - in two to four weeks
Prescriptions:
New
cephalexin 500 mg Capsule
1,000 mg PO Q8 14 Days Qty: 84 0RF
Continued
propranolol 80 MG tablet
80 mg PO DAILY
levothyroxine 125 MCG tablet
125 mcg PO DAILY
multivitamin with folic acid [Tab-A-Theo] 1 TABLET tablet
1 tab PO DAILY
diltiazem HCl 120 MG capsule,extended release 24hr
120 mg PO DAILY 0RF
spironolactone 25 MG tablet
12.5 mg PO DAILY
loperamide 2 mg Capsule
2 mg PO Q4HPRN PRN (Reason: loose stool)
potassium chloride 8 mEq tablet extended release
8 meq PO DAILY
furosemide 20 mg tablet
80 mg PO NOON
loratadine [Claritin] 10 mg Tablet
10 mg PO DAILYPRN PRN (Reason: allergies)
cholecalciferol (vitamin D3) 50 mcg (2,000 unit) Tablet
25 mcg PO DAILY
Saline Nasal 50 SPRAYS/45 ML aerosol,spray
2 sprays intranasal QIDPRN PRN (Reason: dry nasal)
omeprazole 20 mg Capsule,Delayed Release(Dr/Ec)
20 mg PO DAILY
vitamin E (dl, acetate) 180 mg (400 unit) Capsule
180 mg PO DAILY
famotidine [Pepcid] 20 mg Tablet
20 mg PO DAILYPRN PRN (Reason: gerd)
Eliquis 5 mg Tablet
5 mg PO BID
Gas-X 250 mg Capsule
250 mg PO DAILYPRN PRN (Reason: gas pains)
Discharge Orders:
Discharge Patient (As Directed); Ordered 02/07/25
Ordered By: Gerry Riley
Discharge Date and Time
Discharge Date/Time: 02/07/25 13:23
Print Language: LIBERIAN
[2025-02-07] MEDS: LASIX PO (12:00)
[2025-02-08 23:59] LABS: Stone Analysis Mass 21 mg
== END 2025-02-07 13:23 | disposition home health service (06) | DRG 854 ==
LOC: 2 SOUTH 13:41
PROVIDERS: Registered Nurse; Surgery; ADMITTING PHYSICIAN Internal Medicine; ATTENDING PHYSICIAN Internal Medicine; EMERGENCY PHYSICIAN Student in an Organized Health Care Education/Training Program; FAMILY PHYSICIAN Family Medicine
PROC: 0TC68ZZ Extirpation of Matter from Right Ureter, Via Natural or Artificial Opening Endoscopic (ICD-10-PCS; 2025-02-04)
PROC: BT1D1ZZ Fluoroscopy of Right Kidney, Ureter and Bladder using Low Osmolar Contrast (ICD-10-PCS; 2025-02-04)
PROC: 0T768DZ Dilation of Right Ureter with Intraluminal Device, Via Natural or Artificial Opening Endoscopic (ICD-10-PCS; 2025-02-04)
DX: A41.59 Other Gram-negative sepsis (principal); E87.20 Acidosis, unspecified; N13.6 Pyonephrosis; I50.32 Chronic diastolic (congestive) heart failure; N17.9 Acute kidney failure, unspecified; N20.0 Calculus of kidney; Z79.890 Hormone replacement therapy; K21.9 Gastro-esophageal reflux disease without esophagitis; Z79.01 Long term (current) use of anticoagulants; I11.0 Hypertensive heart disease with heart failure; G60.0 Hereditary motor and sensory neuropathy; K58.9 Irritable bowel syndrome, unspecified; E03.9 Hypothyroidism, unspecified; I48.91 Unspecified atrial fibrillation; J45.909 Unspecified asthma, uncomplicated; Z90.49 Acquired absence of other specified parts of digestive tract; Z90.710 Acquired absence of both cervix and uterus
CPT/HCPCS: 74177; 74420; 76000; 76700; 80048; 80053; 81003; 81015; 82248; 82365; 83605; 83690; 83735; 84100; 85025; 85027; 87040; 87077; 87086; 87088; 87154; 87186; 87205; 93005; 96374; 96375; 97162; 99285; C2617; Q9967

== ENCOUNTER → 2025-02-16 07:36 | Outpatient (REF) | payer MEDICARE, SELFPAY ==
[2025-02-16 08:26] LABS: Hematocrit 40.3 % (37.0-47.0); Hemoglobin 13.3 g/dL (12.0-16.0); Mean Corp Hgb Conc. 33.0 g/dL (33.0-37.0); Mean Corpuscular Volume 94.2 fL (81.0-99.0); Nucleated Red Blood Cells % 0 %; Platelet Count 240 10^3/uL (130-400); Red Cell Dist. Width 13.9 % (11.5-14.5)
[2025-02-16 09:43] LABS: Blood Urea Nitrogen 24 mg/dl (7-17); Calcium 9.7 mg/dl (8.4-10.2); Carbon Dioxide 25 mmol/L (22-30); Chloride 101 mmol/L (98-107); Glucose 115 mg/dl (70-99); Potassium 3.8 mmol/L (3.5-5.1); Sodium 137 mmol/L (135-145); eGFR > 60.00
== END ==
LOC: REG 07:36
PROVIDERS: ATTENDING PHYSICIAN Internal Medicine; FAMILY PHYSICIAN Family Medicine
DX: N10 Acute pyelonephritis (principal)
CPT/HCPCS: 36415; 80048; 85025

== ENCOUNTER → 2025-03-26 12:58 | Outpatient (REF) | payer MEDICARE, SELFPAY ==
[2025-03-26 14:20] LABS: Urine Character Clear (Clear)
[2025-03-26 14:34] LABS: Urine Red Blood Cell 26-30 /HPF (0-2); Urine White Cell 0-2 /HPF (0-5)
[2025-03-26 14:57] LABS: Hematocrit 37.5 % (37.0-47.0); Hemoglobin 12.4 g/dL (12.0-16.0); Mean Corp Hgb Conc. 33.1 g/dL (33.0-37.0); Mean Corpuscular Volume 92.4 fL (81.0-99.0); Nucleated Red Blood Cells % 0 %; Platelet Count 225 10^3/uL (130-400); Red Cell Dist. Width 14.6 % (11.5-14.5)
[2025-03-26 15:22] LABS: Blood Urea Nitrogen 16 mg/dl (7-17); Calcium 9.3 mg/dl (8.4-10.2); Carbon Dioxide 27 mmol/L (22-30); Chloride 100 mmol/L (98-107); Glucose 114 mg/dl (70-99); Potassium 3.5 mmol/L (3.5-5.1); Sodium 136 mmol/L (135-145); eGFR > 60.00
== END ==
LOC: REG 12:58
PROVIDERS: ATTENDING PHYSICIAN Nurse Practitioner Family
DX: R60.0 Localized edema (principal); I50.32 Chronic diastolic (congestive) heart failure; I48.21 Permanent atrial fibrillation; Z87.448 Personal history of other diseases of urinary system
CPT/HCPCS: 36415; 80048; 81003; 81015; 83880; 85025; 87077; 87086; 87186

== ENCOUNTER 2025-04-06 14:14 | Inpatient (IN) | payer MEDICARE, SELFPAY ==
[2025-04-06] VITALS (15 sets, daily range): BP systolic 103–142; BP diastolic 51–76
[2025-04-06 08:41] LABS: Hematocrit 39.6 % (37.0-47.0); Hemoglobin 12.8 g/dL (12.0-16.0); Mean Corp Hgb Conc. 32.3 g/dL (33.0-37.0); Mean Corpuscular Volume 94.3 fL (81.0-99.0); Nucleated Red Blood Cells % 0 %; Platelet Count 254 10^3/uL (130-400); Red Cell Dist. Width 14.7 % (11.5-14.5)
--- NOTE | 2025-04-06 08:56 | ED.GENMED ---
History of Present Illness
General
Chief Complaint: Abdominal Symptoms
Source: patient
Exam Limitations: none
Time Seen by Provider: 04/06/25 08:50
History of Present Illness
History of Present Illness:
84-year-old female hematuria. 1 episode this morning. No clots. No inability to urinate. No flank or back pain. No fever or chills. Basically feels fine. She did had a slight pulling feeling in her abdomen but does not describe it as
discomfort or pain. Family member noted patient had a infected obstructing kidney stone in February that required stent. Currently not on antibiotics. Bowel movements are normal. Patient is on Eliquis for atrial fibrillation and stroke prevention.
She has no history of stroke
Past History
Past History
ED Past Medical History: Arrthythmia (Atrial fibrillation.), Asthma, GERD, HTN and Hypothyroidism
ED Past Surgical History: Appendectomy, Cholecystectomy, Gynecological and Urological
Social History
Tobacco: Non-smoker
Alcohol: None
Drug: None
Living: alone
Employment: Retired
Family History
Family History: Other (Noncontributory)
Review of Systems
Review of Systems
Constitutional: Denies fever or chills
ABD/GI: Denies abdominal pain, diarrhea, bloody stools or black stools
: Denies dysuria or frequency
Phy Exam
Physical Exam
Physical Exam:
GENERAL: Alert and oriented in no apparent distress
EYE: Orbits normal.
NECK: Supple
CARDIAC: Regular rate and rhythm without any obvious murmurs.
LUNGS: Clear breath sounds,normal
ABDOMEN: Soft, without focal tenderness or distention. No CVA tenderness
NEUROLOGICAL: Alert and oriented , grossly non-focal
SKIN: Warm and dry, no rash or lesion, no discoloration, skin intact.
MUSCULOSKELETAL: No edema,no deformity.Good color
PSYCH: Normal and appropriate interaction.
Course
Orders/Labs/Results
Orders:
Orders
04/06/25 08:25
Basic Metabolic Panel Urgent
Complete Blood Count/With Diff Urgent
Urinalysis Reflex To Culture Urgent
Date Specimen was Collected: 04/06/25
Time Specimen was Collected: 08:11
Urine Microscopic Reflex Cult Urgent
Urine Culture Urgent
BETTY Source: U
Specimen Description:
Obtained by: Random
Date Specimen was Collected: 04/06/25
Time Specimen was Collected: 08:11
04/06/25 09:22
CT Abd/pel Without Iv Or Oral Urgent
Comment:
Reason For Exam: Hematuria/recent kidney stone/stent
04/06/25 Lunch
NPO
Allow oral meds: Yes
Allow clear liquids: No
NPO with Ice Chips: No
04/06/25 11:34
Straight cath- Treatment ONCE
04/06/25 12:53
Cefepime HCl [Maxipime] 2,000 mg IV NOW STA
04/06/25 13:00
Blood Culture Q30M
BETTY Source: Blood/Venous
Specimen Description:
04/06/25 13:08
Add On- LAB Urgent
Tests Added?: lactic acid
04/06/25 13:13
Lactic Acid Routine
04/06/25 13:30
Blood Culture Q30M
BETTY Source: Blood/Venous
Specimen Description:
04/06/25 13:31
Lactic Acid Urgent
04/06/25 13:35
VANCOMYCIN Pharmacy to Dose [VANCOCIN Pharmacy to Dose] 1 each Pharmacy To Prepare [Call Pharmacy To Prepare] 0 ml IV PER PROTOCOL
04/06/25 13:40
Admit/Transfer Patient As Directed
Co-Sign Provider:
Level of Care: Inpatient admission
Assign to:: Telemetry
Physician / Group: tawny platt
Diagnosis: uti with right ureteral calc mild hydro, labile htn/hypotenison, afib eliqu
Reason for Telemetry: Arrhythmia
Date to Stop Telemetry: 04/09/25
Time to Stop Telemetry: 11:00
Reason for Hospitalization: uti with right ureteral calc mild hydro, labile htn/hypotenison, afib eliqu
Expected length of stay greater than two midnights?: Yes
ELOS- Estimated Length of Stay in days: 4
I certify the patient meets the requirements for IP care: Yes
Code Status As Directed
Resuscitation Status: Full Code
04/06/25 13:45
0.9% Sodium Chloride 1000 ml [Nss] 1,000 ml IV 1,000 mls/hr
PRN Pain Medication Management As Directed
May give lesser potent ordered pain med per pt: Yes
preference::
Protocol:: Medication orders for pain may be administered in a
manner that supports deferring to patient preference
when the pt is:
- Requesting an ordered lesser potent pain medication.
Least to most potent pain medications are defined
as: acetaminophen < NSAID < tramadol < opioids
(morphine, oxycodone, hydromorphone).
- Requesting a lesser dose of the same medication IF
ORDERED.
- Requesting a less intrusive route of administration
if both routes are prescribed by the provider (PO <
IV).
04/06/25 13:47
EKG [Electrocardiogram (*1)] Urgent
Reason for Study: PreOp
04/06/25 13:48
UROLOGY CONSULT Routine
Consulting Provider: López Parry
Was physician already notified: Yes
Comment: uti w/right ureteral stone mild hydro on elqiuis
04/06/25 14:00
Cefepime HCl [Maxipime] 1,000 mg IV Q8H
04/09/25 11:00
DC Protocol for Telemetry ONCE
Abnormal Lab Results
04/06/25
08:25
MCHC 32.3 L g/dL
(33.0-37.0)
RDW 14.7 H %
(11.5-14.5)
Absolute Monos (auto) 0.7 H 10^3/uL
(0.1-0.6)
Monocytes % 10.1 H %
(1.7-9.3)
Glucose 108 H mg/dl
(70-99)
Urine Ketones 1+ A
(Negative)
Ur Occult Blood Reflex 4+ A
(Negative)
Leukocyte Esterase Rfl 2+ A
(Negative)
Urine RBC >100 A /HPF
(0-2)
Urine WBC (Reflex) 26-30 A /HPF
(0-5)
Urine Bacteria (Reflex) Many A
(Negative)
Urine Albumin (Reflex) 3+ A
(Neg - Trace)
04/06/25 08:25
04/06/25 08:25
Vital Signs
Initial and Last Documented VS:
Initial Vital Signs
Pulse Ox
94
04/06/25 08:03
Last Documented Vital Signs
Temp Pulse Resp BP Pulse Ox
98.0 F 80 18 103/51 95
04/06/25 08:05 04/06/25 08:05 04/06/25 08:05 04/06/25 11:00 04/06/25 12:00
MDM/Problems Addressed
Differential Diagnosis Includes:
Essentially painless hematuria. Relatively recent infected stone. Not describing any infected issues at this time. Not describing inability to urinate. Differential would include UTI although no other symptoms consistent with UTI, kidney stone
although no significant pain painless hematuria. Workup in progress
*Radiology
Radiology exam reviewed: radiology read reviewed (5 mm proximal UPJ obstructing kidney stone right)
*Pulse Oximetry
SaO2: 96
Oxygen Mode of Delivery: Room air
Patient hypoxic: no
*Critical Care Note
Total Time (30-74mins, 75-104mins- exclusive of procedures): Not Applicable
Data Reviewed
Review of Other/Old Records Reveals: Labs, Records, Radiology Studies, Testing and Discharge Summary
Update Note
Update Note:
1135.... 5 mm obstructing stone right UPJ with mild hydro-. Patient remains nontoxic and stable. Not describing infectious symptoms. No fever. Normal white count. Will get a straight cath urine and then discussed with urology.
1255... Patient and family updated. Hospitalist and urology notified. Remote rash from penicillin. Feel cephalosporin is reasonable
ED Attending Note
-
Portions of this chart may have been created with voice recognition software.� Occasional wrong word or��sound alike� substitutions may have occurred due to the inherent limitations of voice recognition software.
Discharge Plan
Departure
Patient Disposition: Admit
Date of Disposition: 04/06/25
Time of Disposition: 12:56
Presentation/result/management discussed w/ accepting MD/DO: Urology
Discharge Problem:
Obstructing kidney stone right, UTI obstructing kidney stone right, History of urosepsis
Prescriptions:
No Action
propranolol 80 MG tablet
80 mg PO DAILY
levothyroxine 125 MCG tablet
125 mcg PO DAILY
multivitamin with folic acid [Tab-A-Theo] 1 TABLET tablet
1 tab PO DAILY
diltiazem HCl 120 MG capsule,extended release 24hr
120 mg PO DAILY 0RF
spironolactone 25 MG tablet
12.5 mg PO DAILY
potassium chloride 8 mEq tablet extended release
8 meq PO DAILY
furosemide 20 mg tablet
60 mg PO DAILY@0800
cholecalciferol (vitamin D3) 50 mcg (2,000 unit) Tablet
25 mcg PO DAILY
vitamin E (dl, acetate) 180 mg (400 unit) Capsule
180 mg PO DAILY
Eliquis 5 mg Tablet
5 mg PO BID
lidocaine 4 % Adhesive Patch,Medicated
1 patch TOPICAL DAILY
acetaminophen 650 mg Tablet Extended Release
1,300 mg PO DAILYPRN PRN (Reason: mild pain)
furosemide 20 mg tablet
20 mg PO NOON
esomeprazole magnesium [Nexium] 20 mg Capsule,Delayed Release(Dr/Ec)
20 mg PO DAILYPRN PRN (Reason: reflux)
Referrals:
Jennyfer Jackson DO [Family Provider, Family Practice]
Interventions
Interventions:
*Risk Screen - Suicide Last Done: 04/06/25 08:00
*General Assessment Last Done: 04/06/25 08:00
*Neglect/Abuse Screening Last Done: 04/06/25 08:00
*ED- Fall Risk Assessment Last Done: 04/06/25 08:00
RF-Hhvotu-Cbmwlrqyrp Assessment Last Done: 04/06/25 08:00
Discharge Date and Time
Print Language: UPPER SORBIAN
[2025-04-06 08:59] LABS: Blood Urea Nitrogen 16 mg/dl (7-17); Calcium 9.2 mg/dl (8.4-10.2); Carbon Dioxide 28 mmol/L (22-30); Chloride 103 mmol/L (98-107); Estimated Creatinine Clearance 52 ml/min; Glucose 108 mg/dl (70-99); Sodium 140 mmol/L (135-145); eGFR > 60.00
[2025-04-06 12:11] LABS: Urine Character Slightly Cloudy (Clear)
[2025-04-06 12:50] LABS: Urine Red Blood Cell >100 /HPF (0-2); Urine Squamous Cell 0-2 /LPF (Few)
[2025-04-06 12:51] LABS: Urine White Cell 26-30 /HPF (0-5)
--- NOTE | 2025-04-06 13:04 | HPS.HSE ---
Addendum entered and electronically signed by Debbie Mullen MD 04/06/25 14:30:
This is an addendum to the H&P written by Naa Camarena on 04/06/25. �Patient seen and examined independently with [employer] INS[employer]OR.
84-year-old female past medical history of Proteus mirabilis bacteremia on 02/04/2025 secondary to obstructive ureteral stone, HFpEF, GERD, hypothyroidism, atrial fibrillation on Eliquis, presenting with blood in the urine, suprapubic tenderness and
bilateral anterior abdominal pain. �No fevers or chills or vomiting.
Patient was recently admitted from 02/04 to 02/07 for right ureteral stone obstruction with sepsis secondary to pyelonephritis status post stent placement and stone removal. �Patient had Proteus bacteremia.
Patient recently saw her primary care physician on 03/26 for leg edema and 5 pound weight and teds were recommended. �Urinalysis at that time showed Enterococcus in the urine and she was not treated because she did not have symptoms.
Vital signs show blood pressure normal. �Labs unremarkable. �Urinalysis shows hematuria. �CT abdomen pelvis shows 5 mm proximal right ureteral calculus with associated mild right hydroureteronephrosis.
Patient with obstructive right ureteral calculi. �No signs of sepsis currently. �IV fluids, empiric vancomycin/cefepime. �Hold diuretics and metoprolol. �Hold Eliquis. �N.p.o., urology consulted and to take to OR for stent.
Original Note:
Family Physician
-
Family Physician: Jennyfer Jackson
Chief Complaint
-
Hematuria 7 AM, suprapubic tenderness, bilateral anterior abdominal pain
History of Present Illness
84-year-old female complaining of hematuria 1 episode this morning along with some slight abdominal discomfort suprapubic with bilateral abdominal pain now resolved. The patient has past medical history of obstructing ureteral calculi status post
extraction right UVJ on 02/04/2025 she has history of recent Enterococcus 03/28/2025 urinalysis prior Proteus Mirabillis bacteremia on 02/04/2025. She denies current fever, dysuria, difficulty with micturition, flank pain, back pain, nausea, vomiting,
diarrhea, chest pain, palpitations, cough, shortness of breath. She had visit with PCP around 03/26 due to leg edema with 5 pound weight gain she had outpatient labs and urinalysis despite not having urine symptoms. She wore GENNY stockings had no
adjustment in diuretics and weight went back to 171 pounds her dry weight is 168 to 172 pounds. She has past medical history of A-fib on Eliquis, heart failure preserved EF, HTN, GERD, hypothyroidism, asthma, renal calculi, moderate MR/AR/TR,
moderate pulm HTN,urosepsis obstructing right UVJ stone status post extraction with right JJ stent 02/04/2025/pyelonephritis
Medical History
Past Medical History
Past Medical History: Reports Other
Additional Past Medical History:
Choledocholithiasis
Cholangitis
Charcot Piper tooth muscular atrophy
Hypertension
IBS
Mitral valve prolapse
Osteoarthritis
urosepsis obstructing right UVJ stone status post extraction with right JJ stent 02/04/2025/pyelonephritis
Past Surgical History: Reports Other
Additional Past Surgical History:
Cystoscopy right ureteroscopy stone manipulation right retrograde pyelogram right ureteral stent placement 02/04/2025 obstructing right UVJ stone
Cholecystectomy
Hysterectomy
Appendectomy
Social History
Tobacco: Non-smoker
Alcohol: None
Drug: None
Personal: Single
Living: Alone (Single home)
Employment: Retired
Family History
Family History: Other (Brother history of A-fib, pacemaker, mother COPD 80s, father old age 80s)
Allergies / Home Medications
Allergies reflects when Allergies were last updated in [employer].
Home Medications with original date entered in [employer]
Allergy/Medication List:
Allergies
Allergy/AdvReac Type Severity Reaction Status Date / Time
cortisone Allergy Unknown Verified 04/06/25 08:10
mushroom Allergy Unknown Verified 04/06/25 08:10
Penicillins Allergy Unknown Verified 04/06/25 08:10
strawberry Allergy Unknown Verified 04/06/25 08:10
tetanus toxoid, adsorbed Allergy Unknown Verified 04/06/25 08:10
Home Medications
levothyroxine 125 mcg tablet 125 mcg PO DAILY Thyroid 06/26/21
multivitamin with folic acid 400 mcg tablet (Tab-A-Theo) 1 tab PO DAILY Supplement 06/26/21
propranolol 80 mg tablet 80 mg PO DAILY Neurological Condition 06/26/21
diltiazem HCl 120 mg capsule,extended release 24 hr 120 mg PO DAILY 07/04/21
spironolactone 25 mg tablet 12.5 mg PO DAILY Blood Pressure 03/13/22
cholecalciferol (vitamin D3) 50 mcg (2,000 unit) tablet 25 mcg PO DAILY Supplement 02/25/24
furosemide 20 mg tablet 60 mg PO DAILY@0800 Fluid Retention/Swelling 02/25/24
potassium chloride 8 mEq tablet,extended release 8 meq PO DAILY Electrolyte Repletion 02/25/24
apixaban 5 mg tablet (Eliquis) 5 mg PO BID Blood Clot Prevention/Tx 02/04/25
vitamin E (dl, acetate) 180 mg (400 unit) capsule 180 mg PO DAILY Supplement 02/04/25
acetaminophen 650 mg tablet,extended release 1,300 mg PO DAILYPRN PRN mild pain 04/06/25
esomeprazole magnesium 20 mg capsule,delayed release (Nexium) 20 mg PO DAILYPRN PRN reflux 04/06/25
furosemide 20 mg tablet 20 mg PO NOON 04/06/25
lidocaine 4 % topical patch 1 patch topical DAILY r knee 04/06/25
Review of Systems
-
History Source: Patient and Family (Daughter Nahomy RHOADES at bedside)
A 12 point ROS was completed and negative except as noted: Yes
Constitutional: Denies Fever, Fatigue or Chills
EENT: Denies Sore Throat or Runny Nose
Respiratory: Denies Cough or Trouble Breathing
Cardiac: Denies Chest Pain, Diaphoresis, Palpitations or Syncope
Abdomen/GI: Reports Abdominal Pain (Suprapubic bilateral anterior abdomen); Denies Nausea, Vomiting, Diarrhea, Constipated, Bloody Stools or Black Stools
: Reports Bleeding (Hematuria this a.m.); Denies Dysuria, Frequency or Flank Pain
Musculoskeletal: Denies Joint Pain or Edema
Skin: Denies Itching or Rash
Neurological: Denies Dizzy, Headache or Weakness
Endocrine: Reports No Symptoms
Hematologic/Lymphatic: Reports No Symptoms
Psych: Reports Calm
Physical Exam
Vital Signs
Vital Signs
Temp Pulse Resp BP Pulse Ox
98.0 F 80 18 103/51 95
04/06/25 08:05 04/06/25 08:05 04/06/25 08:05 04/06/25 11:00 04/06/25 12:00
Physical Exam
General: Comfortable and Conversant; No Pain, Fever or Chills
HEENT: NormoCephalic, Anicteric, Moist mucous membranes, Corrigan Conjunctivae and No Ptosis
Respiratory: Clear; No Wheezes, Rales or Rhonchi
Cardiac: S1/S2; No Murmur, Rub, Gallop or Peripheral Edema
GI: Soft, Non Tender, Non Distended, Normal Bowel Sounds and No Hepatosplenomegaly
Rectal: Deferred by Provider
Genito-urinary: Deferred by me
Musculoskeletal: No Clubbing, No Cyanosis and No Edema
Skin: Warm and Dry; No Rash
Neuro: AO x 3, Nonfocal/grossly intact, Cranial Nerves Intact, No Sensory Deficits and Sedated; No Slurred Speech, Facial Droop or Tremors
Psych: Calm
Laboratory Results
-
04/06/25 08:25
04/06/25 08:25
Laboratory Results
Total Bilirubin Cancelled 04/06/25 08:25
AST Cancelled 04/06/25 08:25
ALT Cancelled 04/06/25 08:25
Alkaline Phosphatase Cancelled 04/06/25 08:25
Data Reviewed
-
CT Scan: Report Reviewed by me
Lab Data: Labs Reviewed by me
Impression/Plan
-
Impression/plan:
Admit to MedSurg
#UTI secondary to right ureteral calculus with mild hydroureteronephrosis
#History urosepsis obstructing right UVJ stone status post extraction with right JJ stent 02/04/2025
Dr. Hamilton
#History of Proteus Mirabillis bacteremia 02/04/2025
# Recent Enterococcus faecalis 03/26/2025
WBC 6.8, afebrile 98, HR 80, 134/60> 103/51
- Follow urine culture
- IV NSS 1 L bolus
- Continue IV NSS 80 cc an hour x 2 L max
-IV vancomycin, IV cefepime
-Check lactic acid
- Last dose Eliquis yesterday 04/05/2025 evening
- Hold Eliquis
-Consult urology Dr. Parry aware
-OR TODAY for removal of calculus and stent placement
-NPO
- Follow CBC, CMP
- PT/OT consult
CT abdomen pelvis without IV or oral contrast:
1.) 5 mm proximal right ureteral calculus with associated mild right hydroureteronephrosis.
2.) Chronic L3 and L4 compression deformities. Unchanged grade 1 anterolisthesis of
L5 on S1. Lumbarized S1 redemonstrated
#Hyportension/HTN current labile blood pressure
134/60> 103/51 > 130/50
-Will give IV fluids 1 L
- Hold diltiazem, propranolol, Lasix, spironolactone
- Check lactic acid
#Heart failure preserved EF
I/O, daily weights dry weight 160-172 pounds
-Hold Lasix, spironolactone
-GENNY stockings
- Follows with [facility]ology
2D echo 04/19/2023: EF 60-65%, normal LV S LVSF, moderate MR, mild to moderate AR, moderate TR with moderate pulm HTN PASP 56 mmHg
#Moderate pulm HTN
#Moderate MR/AR/TR
#GERD
-Continue PPI
#Hypothyroidism
Continue levothyroxine
#A-fib
Hold Cardizem, propranolol due to labile HTN/hypotension
Hold Eliquis for possible impending procedure May resume post per urology recommendations
#OA right knee
Continue Lidoderm patch, vitamin D3
VTE prophylaxis
SCDs preprocedure
Full code
[2025-04-06] MEDS: MAXIPIME 2000 MG IV (14:15)
[2025-04-06] MEDS: NSS 1000 IV ×2 (14:15→17:45)
--- NOTE | 2025-04-06 14:15 | PHA.VAN.IN ---
Assessment
- Assessment
Renal Function: Appears similar to baseline
Renal Function may be Overestimated due to: age
Concomitant Antimicrobials: cefepime
AUC Dosing Plan
- Empiric Dosing
Initial / Loading Dose: 1500mg
Maintenance Regimen: 1500mg q24h
Estimated AUC (mcg*h/mL): 555
Estimated Peak (mcg*h/mL): 37.4
Estimated Trough (mcg/ml): 12.8
Estimated Half Life (H): 14.6
- Monitoring
No levels ordered at this time: consider next few days
Pharmacokinetics Vancomycin I
- -
Patient Age: 84
Patient Sex: Female
Vancomycin Day #: 1
Indication: Genito-Urinary Tract
Requesting Provider: Naa Camarena
Pertinent Antimicrobial Allergies:
pcns=unknown
Height / Weight:
Height 5 ft 2 in
Actual Weight 84.1 kg
IBW in k.1
- Vital Signs / Lab Results
Temp Pulse Resp BP Pulse Ox
98.0 F 80 18 103/51 95
04/06/25 08:05 04/06/25 08:05 04/06/25 08:05 04/06/25 11:00 04/06/25 12:00
Lab Results - Hematology
04/06/25
08:25
WBC 6.8
Lab Results - Chemistry
04/06/25
08:25
BUN 16
Creatinine 0.8
Estimated Creat Clear 52
Albumin Cancelled
Lab Results - Urine
04/06/25
08:25
Urine Nitrite (Reflex) Negative
Leukocyte Esterase Rfl 2+ A
Urine WBC (Reflex) 26-30 A
Ur Squamous Epith Cells 0-2
Urine Bacteria (Reflex) Many A
--- NOTE | 2025-04-06 14:43 | EDCM ---
CM reviewed chart and met with pt and her daughter bedside in ED. Lives alone in 1 story home, 2 steps down to enter.
Independent in ADLs, personal care and ambulation at baseline. Ambulates with rollator. Also has shower chair.
Daughter lives very close by and provides support.
Confirms prescription coverage.
Hx [facility], no hx SNF. Currently receiving private pay PT, daughter arranged.
PCP: Jennyfer Jackson
Pharmacy: [facility]
CM will continue to follow for any discharge planning needs.
--- NOTE | 2025-04-06 15:24 | CONS.URO ---
Consultation
-
Date/Time Consultation Performed: 04/06/25 1430
Performing Provider: Peffer
Reason for Consultation: UTI, ureteral stone
Medical History
History of Present Illness
84F with recent history of urosepsis, stent placement for R ureteral stone, subsequent R ureteroscopy with Dr. Hamilton
Presenting with abdominal pain related to 5mm R prox ureteral stone
UA c/w past UTIs and had urine culture 2 weeks ago + for enterococcus
On eval in ER there are no clinical signs of sepsis
PMH:
Choledocholithiasis
Cholangitis
Charcot Piper tooth muscular atrophy
Hypertension
IBS
Mitral valve prolapse
Osteoarthritis
urosepsis obstructing right UVJ stone status post extraction with right JJ stent 02/04/2025/pyelonephritis
Past Surgical History: Reports Other
Additional Past Surgical History:
Cystoscopy right ureteroscopy stone manipulation right retrograde pyelogram right ureteral stent placement 02/04/2025 obstructing right UVJ stone
Cholecystectomy
Hysterectomy
Appendectomy
Past Medical History
Past Medical History: Other
Social History
Tobacco: Non-smoker
Alcohol: None
Family History
Family History: Reviewed & Not Pertinent
Allergies/Home Medications
Allergies
Allergy/AdvReac Type Severity Reaction Status Date / Time
cortisone Allergy Unknown Verified 04/06/25 08:10
mushroom Allergy Unknown Verified 04/06/25 08:10
Penicillins Allergy Unknown Verified 04/06/25 08:10
strawberry Allergy Unknown Verified 04/06/25 08:10
tetanus toxoid, adsorbed Allergy Unknown Verified 04/06/25 08:10
Home Medications
�Medication �Instructions �Recorded �Confirmed �Type
levothyroxine 125 mcg tablet 125 mcg PO DAILY Thyroid 06/26/21 04/06/25 History
multivitamin with folic acid 400 1 tab PO DAILY Supplement 06/26/21 04/06/25 History
mcg tablet (Tab-A-Theo)
propranolol 80 mg tablet 80 mg PO DAILY Neurological 06/26/21 04/06/25 History
Condition
diltiazem HCl 120 mg 120 mg PO DAILY 07/04/21 04/06/25 Rx
capsule,extended release 24 hr
spironolactone 25 mg tablet 12.5 mg PO DAILY Blood Pressure 03/13/22 04/06/25 History
cholecalciferol (vitamin D3) 50 25 mcg PO DAILY Supplement 02/25/24 04/06/25 History
mcg (2,000 unit) tablet
furosemide 20 mg tablet 60 mg PO DAILY@0800 Fluid 02/25/24 04/06/25 History
Retention/Swelling
potassium chloride 8 mEq 8 meq PO DAILY Electrolyte 02/25/24 04/06/25 History
tablet,extended release Repletion
apixaban 5 mg tablet (Eliquis) 5 mg PO BID Blood Clot 02/04/25 04/06/25 History
Prevention/Tx
vitamin E (dl, acetate) 180 mg 180 mg PO DAILY Supplement 02/04/25 04/06/25 History
(400 unit) capsule
acetaminophen 650 mg 1,300 mg PO DAILYPRN PRN mild pain 04/06/25 04/06/25 History
tablet,extended release
esomeprazole magnesium 20 mg 20 mg PO DAILYPRN PRN reflux 04/06/25 04/06/25 History
capsule,delayed release (Nexium)
furosemide 20 mg tablet 20 mg PO NOON 04/06/25 04/06/25 History
lidocaine 4 % topical patch 1 patch topical DAILY r knee 04/06/25 04/06/25 History
Physical Exam
Vital Signs
Vital Signs
Temp Pulse Resp BP Pulse Ox
98.0 F 80 18 130/65 96
04/06/25 08:05 04/06/25 08:05 04/06/25 08:05 04/06/25 13:15 04/06/25 12:02
Lab / Testing Results
Laboratory Results
04/06/25 08:25
04/06/25 08:25
Physical Exam
General: Well Developed, Well Nourished and No Apparent Distress
Respiratory: Clear and Non Labored Respirations
GI: Soft and Non Tender
Genito-urinary: No Costovertebral Tend
Neuro: AO x 3
Psych: Calm and Intact Judgement
Assessment / Plan
-
84F with rapidly recurrent R prox ureteral stone
Hx of recent urosepsis with evidence of UTI vs enterococcus colonization
Given proximal location of stone and recent sepsis episode, she is not a great candidate for trial of passage
Recommend OR for R ureteral stent placement
Continue abx pending cultures, coverage for enterococcus
[2025-04-06] MEDS: NSS IV ×6 (17:56→20:41)
--- NOTE | 2025-04-06 19:41 | PTCARENOTE ---
Pt arrived from PACU at aprox 1645. Pts vital stable on admission. Pt daughter in room helping with admission info she lives next door to her in [facility]. Physical assessment completed. Pt denies any pain or discomfort. TT sent to JIMI Camarena
confirming that the lactic acid that was ordered in ED still needed to be done drawn now. She said yes. Lab sent. Pt noted to have red gemma face which is not her normal per daughter. IV vanco just finished upon admission to floor. JIMI Camarena
notified of this also. Pt with no other S/S of reaction to medication. Pt up to bsc with assist of 1 to urinate - aprox 100 ML of bloody unine noted. Instructed pt to ring for assistance and not to get OOB alone.
[2025-04-06] MEDS: LIDOCAINE 4% PATCH 1 PATCH TOPICAL (20:35)
[2025-04-06] MEDS: REMOVE LIDOCAINE PATCH 1 PATCH REMOVE (20:41)
[2025-04-06] MEDS: STERILE WATER FOR INJECTION 10 ML IV (22:03)
[2025-04-06] MEDS: MAXIPIME 1000 MG IV (22:03)
[2025-04-07] VITALS (7 sets, daily range): BP systolic 115–141; BP diastolic 50–70; PULSE 94; O2SAT 95; BMI 32.1
[2025-04-07] MEDS: SYNTHROID 125 MCG PO (05:32)
[2025-04-07] MEDS: VANCOCIN 530 MG IV (05:32)
[2025-04-07] MEDS: MAXIPIME 1000 MG IV ×3 (05:33→21:29)
[2025-04-07] MEDS: STERILE WATER FOR INJECTION 10 ML IV ×3 (05:33→21:29)
[2025-04-07 05:49] LABS: Hematocrit 34.4 % (37.0-47.0); Hemoglobin 11.2 g/dL (12.0-16.0); Mean Corp Hgb Conc. 32.6 g/dL (33.0-37.0); Mean Corpuscular Volume 95.8 fL (81.0-99.0); Nucleated Red Blood Cells % 0 %; Platelet Count 224 10^3/uL (130-400); Red Cell Dist. Width 14.5 % (11.5-14.5)
[2025-04-07 06:14] LABS: ALT (SGPT) 11 U/L (0-35); AST (SGOT) 17 U/L (14-36); Albumin 3.4 g/dl (3.5-5.0); Alkaline Phosphatase 53 U/L (38-126); Blood Urea Nitrogen 15 mg/dl (7-17); Calcium 8.2 mg/dl (8.4-10.2); Carbon Dioxide 25 mmol/L (22-30); Chloride 109 mmol/L (98-107); Estimated Creatinine Clearance 52 ml/min; Glucose 145 mg/dl (70-99); Potassium 4.1 mmol/L (3.5-5.1); Sodium 140 mmol/L (135-145); Total Protein 6.2 g/dl (6.3-8.2); eGFR > 60.00
--- NOTE | 2025-04-07 08:06 | PHA.VAN.FU ---
Vancomycin Assessment / Plan
- Assessment
Renal Function: Stable
WBC's are: WNL
In the past 24 hrs, patient has been: Afebrile
Concomitant Antimicrobials: CEFEPIME
- Dosing Plan
Continue: 1500MG Q24H
- Monitoring Plan
Peak Level: 04/09 @0930
Trough Level: 04/10 @0530
- Follow Up
Pharmacy will continue to follow.
Vancomycin Follow UP
- -
Patient Age: 84
Patient Sex: Female
Vancomycin Day #: 2
Indication: Genito-Urinary Tract
Requesting Provider: Naa Camarena
Pertinent Antimicrobial Allergies:
pcns=unknown
Height / Weight:
Height 5 ft 2 in
Actual Weight 79.407 kg
IBW in k.1
- Vital Signs / Lab Results
Temp Pulse Resp BP Pulse Ox
98.5 F 98 18 131/63 97
04/07/25 07:27 04/07/25 07:27 04/07/25 07:27 04/07/25 07:27 04/07/25 07:27
Lab Results - Hematology
04/06/25 04/07/25
08:25 05:15
WBC 6.8 4.8
Lab Results - Chemistry
04/06/25 04/07/25
08:25 05:15
BUN 16 15
Creatinine 0.8 0.8
Estimated Creat Clear 52 52
Albumin Cancelled 3.4 L
04/06/25 04/06/25
14:12 17:39
Lactic Acid Cancelled 1.4
Lab Results - Urine
04/06/25
08:25
Urine Nitrite (Reflex) Negative
Leukocyte Esterase Rfl 2+ A
Ur Squamous Epith Cells 0-2
[2025-04-07] MEDS: VITAMIN D3 (cholecalciferol) 25 MCG PO (08:53)
[2025-04-07] MEDS: LIDOCAINE 4% PATCH 1 PATCH TOPICAL (08:53)
[2025-04-07] MEDS: THERAGRAN 1 TABLET PO (08:53)
--- NOTE | 2025-04-07 09:21 | W.PN.HOSP.TC ---
Today's Communication/Plan
-
Empiric antibiotics pending culture
resume home medications including Eliquis
PT/OT
Assessment / Plan
Assessment / Plan
Physical Exam
General: Comfortable and Conversant; No Pain, Fever or Chills
HEENT: Normocephalic, Anicteric, Moist mucous membranes, Bally Conjunctivae
Respiratory: Clear; No Wheezes,
Cardiac: S1/S2; No Murmur, Rub, Gallop or Peripheral Edema
GI: Soft, Non Tender, Non Distended, Normal Bowel Sounds
Genito-urinary:
Musculoskeletal: No Clubbing, No Cyanosis and No Edema
Skin: Warm and Dry; No Rash
Neuro: AO x 3, Nonfocal/grossly intact, Cranial Nerves Intact, No Sensory Deficits and Sedated; No Slurred Speech, Facial Droop or Tremors
Psych: Calm
# 5 mm proximal right ureteral calculus with associated mild right hydroureteronephrosis s/p cystoscopy and sent placent on 04/06
Not Sepsis with absence of fever, leukocytosis. Normal lactic acid
She presented with flank pain
likely Localized UTI secondary to right ureteral calculus with mild hydroureteronephrosis
-History urosepsis obstructing right UVJ stone status post extraction with right JJ stent 02/04/2025 Dr. Hamilton
#History of Proteus Mirabilis bacteremia 02/04/2025
# Recent Enterococcus faecalis 03/26/2025
c/w empiric antibiotics for now pending culture.
She is not in pain or discomfort
Appreciate urology help
#HYN
Normal BP
No hypotension
#Chronic Heart failure preserved EF
I/O, daily weights dry weight 160-172 pounds
-Resume Lasix, spironolactone
-GENNY stockings
- Follows with [facility] cardiology
2D echo 04/19/2023: EF 60-65%, normal LV S LVSF, moderate MR, mild to moderate AR, moderate TR with moderate pulm HTN PASP 56 mmHg
#Moderate pulm HTN
#Moderate MR/AR/TR
#GERD
-Continue PPI
#Hypothyroidism
Continue levothyroxine
#A-fib
Resume Cardizem, propranolol
Resume Eliquis f
#OA right knee
Continue Lidoderm patch, vitamin D3
VTE prophylaxis
SCDs preprocedure
Total time spent to see the patient, examine the patient, review data and lab result, discuss treatment plan with patient, nursing staff around 55 minutes
Anticipated Discharge: 24 - 48 hours
Subjective/Interval History
-
Date of Service: April 07, 2025
No chest pain
No sob
No fevers
Objective Data
-
Labs:
Laboratory Results
04/07/25
05:15
WBC 4.8
Hgb 11.2 L
Hct 34.4 L
Plt Count 224
Sodium 140
Potassium 4.1
Chloride 109 H
Carbon Dioxide 25
BUN 15
Creatinine 0.8
Glucose 145 H
Calcium 8.2 L
Total Bilirubin 0.7
AST 17
ALT 11
Alkaline Phosphatase 53
Vital Signs:
Vital Signs
Temp Pulse Resp BP Pulse Ox
98.5 F 98 18 131/63 97
04/07/25 07:27 04/07/25 07:27 04/07/25 07:27 04/07/25 07:27 04/07/25 07:27
I&O
04/06/25 04/07/25 04/08/25
06:59 06:59 06:59
Intake Total 1710 / 1710
Output Total 350 / 350
Balance 1360 / 1360
[2025-04-07] MEDS: LASIX 60 MG PO (11:33)
[2025-04-07] MEDS: ALDACTONE 12.5 MG PO (11:36)
[2025-04-07] MEDS: INDERAL 80 MG PO (11:36)
[2025-04-07] MEDS: CARDIZEM CD 120 MG PO (11:37)
[2025-04-07] MEDS: ELIQUIS 5 MG PO ×2 (11:37→20:14)
--- NOTE | 2025-04-07 12:48 | W.PN.URO.CBU ---
Today's Communication / Plan
-
- Continue abx pending cultures, coverage for enterococcus
- Outpatient follow up with Dr. Hamilton for repeat ureteroscopy
Assessment / Plan
-
84F with rapidly recurrent R prox ureteral stone after R ureteroscopy 02/2025
Hx of recent urosepsis with obstructing stone, now with evidence of UTI vs enterococcus colonization
Given proximal location of stone and recent sepsis episode, she was not a great candidate for trial of passage
s/p OR for R ureteral stent placement 04/06
- Continue abx pending cultures, coverage for enterococcus
- Outpatient follow up with Dr. Hamilton for repeat ureteroscopy
Diagnosis
-
Date of Service: April 07, 2025
-
Patient Diagnosis:
Enterococcus UTI
Obstructing R ureteral stone
Post Op Day:
Subjective
-
No bother from stent
Objective
-
Vital Signs
Temp Pulse Resp BP Pulse Ox
97.9 F 90 18 120/52 96
04/07/25 11:04 04/07/25 11:04 04/07/25 11:04 04/07/25 11:04 04/07/25 11:04
Intake and Output
04/06/25 04/07/25 04/08/25
06:59 06:59 06:59
Intake Total 1710 / 1710
Output Total 350 / 350
Balance 1360 / 1360
Intake:
Oral fluids 240 / 240
IV fluids (Total) 940 / 940
Normosol 100 / 100
IV piggybacks 530 / 530
Output:
Urine, Voided 350 / 350
Laboratory Results
04/07/25 05:15
04/07/25 05:15
Physical Exam
-
General - well developed, well nourished, no acute distress
[2025-04-07] MEDS: REMOVE LIDOCAINE PATCH 1 PATCH REMOVE (20:14)
[2025-04-08] VITALS (8 sets, daily range): BP systolic 88–128; BP diastolic 52–64; PULSE 73; O2SAT 97; BMI 32.0
[2025-04-08] MEDS: VANCOCIN 530 MG IV (05:26)
[2025-04-08] MEDS: MAXIPIME 1000 MG IV (05:26)
[2025-04-08] MEDS: STERILE WATER FOR INJECTION 10 ML IV (05:26)
--- NOTE | 2025-04-08 08:25 | W.PN.URO.CBU ---
Today's Communication / Plan
-
- Continue abx coverage for enterococcus found on culture 03/26 which was not treated outpatient
- Repeat culture is also enterococcus - reasonable to discharge home today with coverage based on this culture
- Outpatient follow up with Dr. Hamilton for repeat ureteroscopy
Will sign off - please call with additional questions
Assessment / Plan
-
84F with rapidly recurrent R prox ureteral stone after R ureteroscopy 02/2025
Hx of recent urosepsis with obstructing stone, now with evidence of UTI vs enterococcus colonization
Given proximal location of stone and recent sepsis episode, she was not a great candidate for trial of passage
s/p OR for R ureteral stent placement 04/06
- Continue abx coverage for enterococcus found on culture 03/26 which was not treated outpatient
- Repeat culture is also enterococcus - reasonable to discharge home today with coverage based on this culture
- Outpatient follow up with Dr. Hamilton for repeat ureteroscopy
Diagnosis
-
Date of Service: April 08, 2025
-
Patient Diagnosis:
Enterococcus UTI
Obstructing R ureteral stone
Post Op Day:
Subjective
-
feeling well
No new issues
Objective
-
Vital Signs
Temp Pulse Resp BP Pulse Ox
97.5 F 67 15 104/61 92
04/08/25 07:18 04/08/25 07:18 04/08/25 07:18 04/08/25 07:18 04/08/25 07:18
Intake and Output
04/07/25 04/08/25 04/09/25
06:59 06:59 06:59
Intake Total 1710 / 1710 960 / 960
Output Total 350 / 350
Balance 1360 / 1360 960 / 960
Intake:
Oral fluids 240 / 240 960 / 960
IV fluids (Total) 940 / 940
Normosol 100 / 100
IV piggybacks 530 / 530
Output:
Urine, Voided 350 / 350
Other:
Number of approximated MODERATE 2
amounts of urine
Physical Exam
-
General - well developed, well nourished, no acute distress
[2025-04-08] MEDS: INDERAL 80 MG PO (08:28)
[2025-04-08] MEDS: ELIQUIS 5 MG PO ×2 (08:28→20:46)
[2025-04-08] MEDS: KCL 10 MEQ PO (08:28)
[2025-04-08] MEDS: SYNTHROID 125 MCG PO (08:28)
[2025-04-08] MEDS: ALDACTONE 12.5 MG PO (08:29)
[2025-04-08] MEDS: LASIX 60 MG PO (08:29)
[2025-04-08] MEDS: LIDOCAINE 4% PATCH 1 PATCH TOPICAL (08:29)
[2025-04-08] MEDS: CARDIZEM CD 120 MG PO (08:29)
[2025-04-08] MEDS: VITAMIN D3 (cholecalciferol) 25 MCG PO (08:29)
[2025-04-08] MEDS: THERAGRAN 1 TABLET PO (08:29)
[2025-04-08 08:49] LABS: Hematocrit 35.9 % (37.0-47.0); Hemoglobin 11.8 g/dL (12.0-16.0); Mean Corp Hgb Conc. 32.9 g/dL (33.0-37.0); Mean Corpuscular Volume 93.5 fL (81.0-99.0); Nucleated Red Blood Cells % 0 %; Platelet Count 236 10^3/uL (130-400); Red Cell Dist. Width 14.9 % (11.5-14.5)
--- NOTE | 2025-04-08 08:53 | W.PN.HOSP.TC ---
Today's Communication/Plan
-
Continue Vancomycin. Patient allergic to Penicillins.
Await Fosfomycin susceptibilities
Assessment / Plan
Assessment / Plan
Physical Exam
General: Not in acute distress
HEENT: Normocephalic, Moist mucous membranes
Respiratory: Clear to Auscultation Bilaterally
Cardiac: S1/S2; RRR
GI: Soft, Non Tender, Non Distended, Normal Bowel Sounds
Musculoskeletal: No Cyanosis and No Edema
Skin: Warm and Dry
Neuro: AAO x 3, Nonfocal/grossly intact, Cranial Nerves Intact, No Sensory Deficits and Sedated
Psych: Calm
Assessment/Plan
# 5 mm proximal right ureteral calculus with associated mild right hydroureteronephrosis s/p cystoscopy and stent placement on 04/06/25
#New Leukocytosis on 04/08/25
She presented with flank pain
likely Localized UTI secondary to right ureteral calculus with mild hydroureteronephrosis
-History urosepsis obstructing right UVJ stone status post extraction with right JJ stent 02/04/2025 Dr. Hamilton
#History of Proteus Mirabilis bacteremia 02/04/2025
# Recent Enterococcus faecalis 03/26/2025
-Urine positive for Enterococcus, await Fosfomycin susceptibility (patient has hives with Penicillin, so cannot do Ampicillin)
-Prior�similar infection was discharged on cephalexin. �placed back on Eliquis and cardiac medications.
-c/w empiric antibiotics for now pending culture.
-She is not in pain or discomfort
-Appreciate urology help
#HTN
Stable
No hypotension
#Chronic Heart failure preserved EF
-I/O, daily weights dry weight 160-172 pounds
-Continue Lasix, spironolactone
-EGNNY stockings
- Follows with [facility] cardiology
2D echo 04/19/2023: EF 60-65%, normal LV S LVSF, moderate MR, mild to moderate AR, moderate TR with moderate pulm HTN PASP 56 mmHg
#Moderate pulm HTN
#Moderate MR/AR/TR
#GERD
-Continue PPI
#Hypothyroidism
Continue levothyroxine
#A-fib
Continue Cardizem, propranolol
Continue Eliquis
#OA right knee
Continue Lidoderm patch, vitamin D3
VTE prophylaxis: Eliquis
Anticipated Discharge: 24 - 48 hours
Subjective/Interval History
-
Date of Service: April 08, 2025
Patient was seen and examined. She reported feeling good and denied any new symptoms or complaints.
Objective Data
-
Labs:
Laboratory Results
04/08/25
08:26
WBC 11.5 H
Hgb 11.8 L
Hct 35.9 L
Plt Count 236
Sodium Pending
Potassium Pending
Chloride Pending
Carbon Dioxide Pending
BUN Pending
Creatinine Pending
Glucose Pending
Calcium Pending
Total Bilirubin Pending
AST Pending
ALT Pending
Alkaline Phosphatase Pending
Vital Signs:
Vital Signs
Temp Pulse Resp BP Pulse Ox
97.5 F 67 15 104/61 92
04/08/25 07:18 04/08/25 08:28 04/08/25 07:18 04/08/25 08:28 04/08/25 07:18
I&O
04/07/25 04/08/25 04/09/25
06:59 06:59 06:59
Intake Total 1710 / 1710 960 / 960
Output Total 350 / 350
Balance 1360 / 1360 960 / 960
[2025-04-08 09:29] LABS: ALT (SGPT) 15 U/L (0-35); AST (SGOT) 22 U/L (14-36); Albumin 3.7 g/dl (3.5-5.0); Alkaline Phosphatase 49 U/L (38-126); Blood Urea Nitrogen 22 mg/dl (7-17); Calcium 8.5 mg/dl (8.4-10.2); Carbon Dioxide 25 mmol/L (22-30); Chloride 105 mmol/L (98-107); Estimated Creatinine Clearance 40 ml/min; Glucose 153 mg/dl (70-99); Potassium 3.9 mmol/L (3.5-5.1); Sodium 140 mmol/L (135-145); Total Protein 6.9 g/dl (6.3-8.2); eGFR 55.21
--- NOTE | 2025-04-08 09:33 | PHA.VAN.FU ---
Vancomycin Assessment / Plan
- Assessment
Renal Function: SCR Increasing
WBC's are: Trending Up
In the past 24 hrs, patient has been: Afebrile
Concomitant Antimicrobials: CEFEPIME
- Dosing Plan
Continue: VANCO 1500MG Q24H
- Monitoring Plan
Peak Level: 04/09 @0930
Trough Level: 04/10 @0530
- Follow Up
Pharmacy will continue to follow.
Vancomycin Follow UP
- -
Patient Age: 84
Patient Sex: Female
Vancomycin Day #: 3
Indication: Genito-Urinary Tract
Requesting Provider: Naa Camarena
Pertinent Antimicrobial Allergies:
pcns=unknown
Height / Weight:
Height 5 ft 2 in
Actual Weight 79.407 kg
IBW in k.1
- Vital Signs / Lab Results
Temp Pulse Resp BP Pulse Ox
97.5 F 67 15 104/61 92
04/08/25 07:18 04/08/25 08:28 04/08/25 07:18 04/08/25 08:28 04/08/25 07:18
Lab Results - Hematology
04/06/25 04/07/25 04/08/25
08:25 05:15 08:26
WBC 6.8 4.8 11.5 H
Lab Results - Chemistry
04/06/25 04/07/25 04/08/25
08:25 05:15 08:26
BUN 16 15 22 H
Creatinine 0.8 0.8 1.0
Estimated Creat Clear 52 52 40
Albumin Cancelled 3.4 L 3.7
04/06/25 04/06/25
14:12 17:39
Lactic Acid Cancelled 1.4
Lab Results - Urine
04/06/25
08:25
Urine Nitrite (Reflex) Negative
Leukocyte Esterase Rfl 2+ A
Ur Squamous Epith Cells 0-2
Microbiology Results
04/06/25 14:32 Blood Culture - Preliminary
Blood/Venous No Growth in 24 hours- Final report to follow
04/06/25 14:12 Blood Culture - Preliminary
Blood/Venous No Growth in 24 hours- Final report to follow
04/06/25 08:25 Urine Culture - Preliminary
Urine Enterococcus species
--- NOTE | 2025-04-08 15:07 | CM ---
POD #1 S/P R ureteral stent placement. IV/Vanco. Discharge POC: Anticipate home with no needs.
--- NOTE | 2025-04-08 15:10 | CM ---
POD #1: S/P R ureteral stent placement. IV/Vanco. Discharge POC: Anticipate Home with no needs.
[2025-04-08] MEDS: REMOVE LIDOCAINE PATCH 1 PATCH REMOVE (20:46)
[2025-04-09 03:07] VITALS: BP 106/52
[2025-04-09] MEDS: VANCOCIN 530 MG IV (05:16)
[2025-04-09] MEDS: SYNTHROID 125 MCG PO (05:17)
[2025-04-09 05:18] VITALS: BMI 31.3
[2025-04-09 07:50] VITALS: BP 127/58
[2025-04-09] MEDS: INDERAL 80 MG PO (08:56)
[2025-04-09] MEDS: ALDACTONE 12.5 MG PO (08:56)
[2025-04-09] MEDS: CARDIZEM CD 120 MG PO (08:57)
[2025-04-09] MEDS: LIDOCAINE 4% PATCH 1 PATCH TOPICAL (08:57)
[2025-04-09] MEDS: THERAGRAN 1 TABLET PO (08:57)
[2025-04-09] MEDS: ELIQUIS 5 MG PO (08:57)
[2025-04-09] MEDS: VITAMIN D3 (cholecalciferol) 25 MCG PO (08:57)
[2025-04-09] MEDS: KCL 10 MEQ PO (08:57)
[2025-04-09] MEDS: LASIX 60 MG PO (08:57)
[2025-04-09 09:59] LABS: Hematocrit 35.7 % (37.0-47.0); Hemoglobin 11.7 g/dL (12.0-16.0); Mean Corp Hgb Conc. 32.8 g/dL (33.0-37.0); Mean Corpuscular Volume 94.2 fL (81.0-99.0); Nucleated Red Blood Cells % 0 %; Platelet Count 233 10^3/uL (130-400); Red Cell Dist. Width 15.0 % (11.5-14.5)
--- NOTE | 2025-04-09 10:19 | CON.ID ---
Consultation
-
Date/Time Consultation Requested: April 09, 2025 0751
Date/Time Consultation Performed: April 09, 2025 1020
Requesting Provider: Dr. Toney Paul
Performing Provider: Dr. Krista Koenig
Reason for Consultation: PCN allergy, Enterococcus obstructive uropathy
Chief Complaint / Past History
Chief Complaint
Bloody urine
History of Present Illness
84-year-old female with history of atrial fibrillation on Eliquis, heart failure with preserved EF, nephrolithiasis with recent stone extraction, right JJ stent placement February 04, 2025 who presented to the ER in April 06 due to acute gross
hematuria and bilateral abdominal pain. No fevers or chills. In the ER CAT scan of the abdomen pelvis showed right obstructing renal stone with hydronephrosis. Patient started on IV vancomycin. She was taken to the OR status post right ureteral
stent placement April 06. Urine culture is positive for Enterococcus species. Patient reports penicillin allergy which resulted in rash. She is feeling well now. No further gross hematuria. No flank pain. No other complaints.
Past History
Additional Past Medical History:
Hypertension
Atrial fibrillation on Eliquis
HFprEF
Asthma
Charcot Piper tooth muscular atrophy
Hypothyroidism
moderate MR/AR/TR
Nephrolithiasis, history of stone extraction and right stent placement
Irritable bowel syndrome
Osteoarthritis R knee
Appendectomy
Cholecystectomy
Hysterectomy
Allergy History:
cortisone Allergy (Verified 04/06/25 08:10)
Unknown
mushroom Allergy (Verified 04/06/25 08:10)
Unknown
Penicillins Allergy (Verified 04/06/25 08:10)
Unknown
strawberry Allergy (Verified 04/06/25 08:10)
Unknown
tetanus toxoid, adsorbed Allergy (Verified 04/06/25 08:10)
Unknown
Medications Reviewed: Yes
Current Antibiotics:
IV vancomycin
s/p cefepime
Social History
Tobacco: Non-Smoker
Alcohol: None
Drug: None
Personal: Single
Living: Alone
Family History
Family History: Not Pertinent
Review of Systems
Review of Systems
General: Negative Fever, Chills or Change in Appetite
HEENT: Negative Sinus Problems or Headache
Cardiovascular: Negative Chest Pain or Dyspnea
Respiratory: Negative Dyspnea or Cough
Gasteroenterology: Negative Nausea, Vomiting or Diarrhea
Genital / Urological: Negative Dysuria or Flank Pain
Endocrine: Negative Weakness
All systems: All other systems were reviewed and were negative
Vital Signs
Temp Pulse Resp BP Pulse Ox
97.7 F 71 16 127/58 96
04/09/25 07:50 04/09/25 07:50 04/09/25 07:50 04/09/25 07:50 04/09/25 07:50
Physical Exam
Physical Exam
Constitutional: No Acute Distress and Comfortable
Cardiovascular: Irregular Rate, S1/S2 and Murmur
Pulmonary: Clear
Gastrointestinal: Soft, Non Tender, Non Distended and Normal Bowel Sounds
Genito-Urinary: Negative CVA Tenderness
Extremities: Negative Edema
Neurological: AO x 3
Lab / Diagnostic Study Results
04/09/25 09:35
Abs Immat Gran (auto) 0.1 10^3/uL (0-0.05) H 04/09/25 09:35
Absolute Neuts (auto) 6.2 10^3/uL (1.4-6.5) 04/09/25 09:35
Absolute Lymphs (auto) 1.6 10^3/uL (1.2-3.4) 04/09/25 09:35
Absolute Monos (auto) 0.8 10^3/uL (0.1-0.6) H 04/09/25 09:35
Absolute Basos (auto) 0.0 10^3/uL (0-0.2) 04/09/25 09:35
Immature Gran % 0.7 % (0-0.5) H 04/09/25 09:35
Neutrophils % 70.1 % (42.2-75.2) 04/09/25 09:35
Lymphocytes % 18.4 % (20.5-51.1) L 04/09/25 09:35
Monocytes % 8.9 % (1.7-9.3) 04/09/25 09:35
Eosinophils % 1.6 % (0-6) 04/09/25 09:35
Basophils % 0.3 % (0-2) 04/09/25 09:35
Lactic Acid 1.4 mmol/L (0.7-2.0) 04/06/25 17:39
Ur Squamous Epith Cells 0-2 /LPF (Few) 04/06/25 08:25
Microbiology Results
Micro:
04/06/25 08:25 Urine Culture - Final
Urine Enterococcus species
04/06/25 14:32 Blood Culture - Preliminary
Blood/Venous No Growth in 48 hours- Final report to follow
04/06/25 14:12 Blood Culture - Preliminary
Blood/Venous No Growth in 48 hours- Final report to follow
04/06/25 CT a/p: 5 mm proximal right ureteral calculus with associated mild right hydroureteronephrosis.
SPEC #: [id number] STANLEY: 04/06/25 STATUS: COMP REQ #: [id number]
RECD: 04/06/25-12[address] [facility] [address]: Moses Wild DO
SOURCE: URINE ENTR: 04/06/25-1241 [facility] DR: Dept Physician Emergency
SPDESC:
ORDERED: Urine Culture
QUERIES: Obtained by Random
Date Specimen was Collected 04/06/25
Time Specimen was Collected 0811
Procedure Result Verified
Urine Culture Final 04/09/25
CC: Greater than 100,000 CFU/ML Enterococcus species
Fosfomycin BETTY = 32 = Susceptible
Organism 1 Enterococcus species
1. Enterococcus species
M.I.C. RX
--------- ---
Ampicillin >8 R
Gentamicin Synergy Screen <=500 S
Susceptible result indicates synergy is likely with a cell
wall active agent that is also susceptible
(e.g.ampicillin,penicillin,vancomycin)
Levofloxacin 2 S
Nitrofurantoin-Urine Only >64 R
Tetracycline >8 R
Vancomycin 2 S
Assessment / Plan
# Complicated UTI
# Acute R obstructive uropathy s/p R JJ stent placement 04/06/25
# PCN allergy
- blood cx negative.
- can transition Vancomycin (d3) to Levofloxacin 750mg po q48H through 04/16. First dose levofloxacin tomorrow.
QTc <500.
Care Review
Plan reviewed with: Physician (Dr. Paul)
--- NOTE | 2025-04-09 10:33 | CM ---
Reviewed the chart notes and spoke with the patient and her daughter at the bedside. IMM reviewed. Patient for discharge today to home with resumption of private PT. Patient's daughter will provide transportation. CM continues to be available to
patient/family and is monitoring medical plan for needs at discharge.
Plan: Discharge to home today.
--- NOTE | 2025-04-09 10:34 | W.PN.HOSP.TC ---
Addendum entered and electronically signed by Toney Paul MD 04/09/25 13:42:
Concern for Paroxysmal Atrial Fibrillation
Original Note:
Today's Communication/Plan
-
Discharge today
Assessment / Plan
Assessment / Plan
Physical Exam
General: Not in acute distress
HEENT: Normocephalic, Moist mucous membranes
Respiratory: Clear to Auscultation Bilaterally
Cardiac: S1/S2; RRR
GI: Soft, Non Tender, Non Distended, Normal Bowel Sounds
Musculoskeletal: No Cyanosis and No Edema
Skin: Warm and Dry
Neuro: AAO x 3, Nonfocal/grossly intact, Cranial Nerves Intact, No Sensory Deficits and Sedated
Psych: Calm
Assessment/Plan
#5 mm proximal right ureteral calculus with associated mild right hydroureteronephrosis s/p cystoscopy and ureteral stent placement on 04/06/25
#New Leukocytosis on 04/08/25 - RESOLVED
She presented with flank pain
likely Localized UTI secondary to right ureteral calculus with mild hydroureteronephrosis
-History urosepsis obstructing right UVJ stone status post extraction with right JJ stent 02/04/2025 Dr. Hamilton
-Urologist Dr. Hamilton communicated with me today that he will set up her outpatient follow-up and stone surgery on discharge
#Complicated Enterococcus UTI
#History of Proteus Mirabilis bacteremia 02/04/2025
#Recent Enterococcus faecalis 03/26/2025
#Penicillin allergy
-Given allergy to penicillins and increased resistant pattern on urine culture sensitivity results, ID consulted and they recommended transition IV Vancomycin to Levofloxacin 750 mg PO Q48H through
(First dose levofloxacin tomorrow). QTc <500.
-She is not in pain or discomfort
-Appreciate urology help
#Hypertension
Stable
No hypotension
#Chronic Heart failure preserved EF
-I/O, daily weights dry weight 160-172 pounds
-Continue Lasix, spironolactone
-GENNY stockings
- Follows with [facility]ology
2D echo 04/19/2023: EF 60-65%, normal LV S LVSF, moderate MR, mild to moderate AR, moderate TR with moderate pulm HTN PASP 56 mmHg
#Hypokalemia
-Continue supplementation outpatient
#Moderate pulm HTN
#Moderate MR/AR/TR
#GERD
-Continue PPI
#Hypothyroidism
Continue levothyroxine
#A-fib
Continue Cardizem, propranolol
Continue Eliquis
#OA right knee
Continue Lidoderm patch, vitamin D3
VTE prophylaxis: Eliquis
More than 30 minutes spent in discharge including
Final examination of the patient
Summarizing hospital stay
Instructions for continuing care to all relevant caregivers
Preparation of discharge records, prescriptions, and referral forms
Total time spent (in minutes): 36
Anticipated Discharge: Today
Subjective/Interval History
-
Date of Service: April 09, 2025
Patient was seen and examined. She reported doing well and denied any new symptoms or complaints.
Objective Data
-
Labs:
Laboratory Results
04/09/25
09:35
WBC 8.9
Hgb 11.7 L
Hct 35.7 L
Plt Count 233
Sodium Pending
Potassium Pending
Chloride Pending
Carbon Dioxide Pending
BUN Pending
Creatinine Pending
Glucose Pending
Calcium Pending
Total Bilirubin Pending
AST Pending
ALT Pending
Alkaline Phosphatase Pending
Vital Signs:
Vital Signs
Temp Pulse Resp BP Pulse Ox
97.7 F 71 16 127/58 96
04/09/25 07:50 04/09/25 07:50 04/09/25 07:50 04/09/25 07:50 04/09/25 07:50
I&O
04/08/25 04/09/25 04/10/25
06:59 06:59 06:59
Intake Total 960 / 960 980 / 980
Balance 960 / 960 980 / 980
[2025-04-09 10:55] LABS: ALT (SGPT) 17 U/L (0-35); AST (SGOT) 23 U/L (14-36); Albumin 3.8 g/dl (3.5-5.0); Alkaline Phosphatase 47 U/L (38-126); Blood Urea Nitrogen 24 mg/dl (7-17); Calcium 8.9 mg/dl (8.4-10.2); Carbon Dioxide 26 mmol/L (22-30); Chloride 106 mmol/L (98-107); Estimated Creatinine Clearance 44 ml/min; Glucose 103 mg/dl (70-99); Potassium 3.1 mmol/L (3.5-5.1); Sodium 141 mmol/L (135-145); Total Protein 7.0 g/dl (6.3-8.2); eGFR > 60.00
--- NOTE | 2025-04-09 10:56 | PTCARENOTE ---
Critical [facility], Dr Paul notified per protocol. Care ongoing.
[2025-04-09 11:22] VITALS: BP 133/67
[2025-04-09] MEDS: KCL 40 MEQ PO (12:03)
--- NOTE | 2025-04-09 12:49 | PN.CDI ---
CDI
- -
CDI:
Physician Documentation Request
Admit Date: 04/06/25 14:14
Dear Doctor Beverly ,
Please review the following and provide your response in the progress notes.
Clinical Indicators:
Pt admitted with UTI/5 mm proximal right ureteral calculus with associated mild right hydroureteronephrosis s/p stenting 04/06
Documented throughout the record, ' #A-fib Continue Cardizem, propranolol Continue Eliquis ...'
Documented per external medical summary 04/06 ,' Mar, Permanent atrial fibrillation (ICD-10 - I48.21) c/w meds remains in afib....'
If possible, please provide further specificity regarding atrial fibrillation, such as:
Paroxysmal atrial fibrillation - terminates spontaneously or with intervention within 7 days of onset
Persistent atrial fibrillation - episodes of continuous AF that last more than 7 days and do not self-terminate
Permanent atrial fibrillation - when a decision has been made to accept the presence of AF and there is no further attempt to restore or maintain sinus rhythm
Other - please specify
Use of terms such as suspected, likely, concern for, or probable (associated with a specific diagnosis that is being evaluated, monitored, or treated as if it exists) are acceptable and can be coded in the inpatient setting, when documented at the
time of discharge.
Thank you,
Rehana Jackson RN
CDI Specialist
[place] [employer]
Please use your independent medical judgment in providing your response.
--- NOTE | 2025-04-09 13:39 | W.DCSUMMARY ---
Discharge Summary
Discharge Data
Date of Admission: 04/06/25
Date of Discharge: 04/09/25
Total time spent discharging patient (in min): 36
-
Pending Results: No
Hospital Course
84-year-old female with past medical history of Proteus mirabilis bacteremia on 02/04/2025 secondary to obstructive ureteral stone, HFpEF, GERD, hypothyroidism and atrial fibrillation on Eliquis, presented with blood in the urine, suprapubic
tenderness and bilateral anterior abdominal pain. She denied any fevers, chills or vomiting. Patient was recently admitted in February 2025 for right ureteral stone obstruction with sepsis secondary to pyelonephritis status post stent placement and
stone removal; patient had Proteus bacteremia. Patient recently saw her primary care physician on 03/26/25 for leg edema and 5 pound weight and TEDS stockings were recommended. Urinalysis at that time showed Enterococcus in the urine and she was
not treated because she did not have symptoms. CT abdomen pelvis showed 5 mm proximal right ureteral calculus with associated mild right hydroureteronephrosis. Patient was started on antibiotics and urology was consulted. On 04/06/25, patient had
cystoscopy and stent placement. Patient would need close outpatient follow-up with urologist Dr. Hamilton for repeat ureteroscopy. Patient had leukocytosis and also resistant enterococcus on her urine culture, therefore, infectious disease was
consulted for assistance. Levofloxacin was recommended on discharge. Patient was doing well and stable for discharge.
Discharge Plan
-
Patient Disposition: Home (Routine Discharge)
Discharge Diagnosis/Procedures: Proximal right ureteral calculus with associated mild right hydroureteronephrosis status post operating room for right ureteral stent placement 04/06/25
Recurrent Right proximal ureteral stone after Right ureteroscopy 02/2025
History of recent urosepsis with obstructing stone - history urosepsis obstructing right UVJ stone status post extraction with right JJ stent 02/04/2025 Dr. Hamilton
New Leukocytosis on 04/08/25 - RESOLVED
Complicated Enterococcus Urinary Tract Infection
History of Proteus Mirabilis bacteremia 02/04/2025
Recent Enterococcus faecalis 03/26/2025
Penicillin allergy
Condition: Good
Diet: Low Fat, Low Cholesterol and Low Sodium
Activity: As tolerated
Driving Restrictions: No driving
Blood Work: CBC, BMP and serum Magnesium in 2 to 3 days with your outpatient doctor's office
Activity Restrictions/Additional Instructions:
If you are taking antacid, iron, zinc, or Carafate, take these products 6 hours before or 2 hours after levofloxacin.
Instructions: Kidney stones in adults, Hypokalemia, Levofloxacin (Systemic), Kidney stone diet
Referrals:
Kenneth Hamilton MD [Active, Urology]
Referral Note: Please call [phone] to schedule a preop visit with Dr. Hamilton in 1-2 weeks - at this visit, we will schedule a definitive outpatient kidney stone surgery (for right kidney) after your recent stent placement.
Jennyfer Jackson DO [Family Provider, Family Practice] - in three to four days
Referral Note: Hospitalization Follow-Up. Needs CBC, BMP and Serum Magnesium check by April 11, 2025.
Additional Discharge Medication Instructions: Levofloxacin is a new antibiotics medication which you should start taking on April 10, 2025 and last dose will be on April 16, 2025.
Since you had low potassium during your hospitalization, your potassium chloride dose has been doubled and the new prescription has been sent to your pharmacy -- IT IS EXTREMELY IMPORTANT THAT YOU FOLLOW-UP WITH YOUR PRIMARY CARE PHYSICIAN IN 1 TO 2
DAYS ABOUT THIS TO SEE IF YOU NEED A REDUCTION OR FURTHER INCREASE IN DOSAGE OF THE POTASSIUM
Prescriptions:
New
levofloxacin 750 mg Tablet
750 mg PO Q48H Qty: 4 0RF
Rx Instructions:
Start on April 10, 2025 and last dose is on April 16, 2025
Continued
propranolol 80 MG tablet
80 mg PO DAILY
levothyroxine 125 MCG tablet
125 mcg PO DAILY
multivitamin with folic acid [Tab-A-Theo] 1 TABLET tablet
1 tab PO DAILY
diltiazem HCl 120 MG capsule,extended release 24hr
120 mg PO DAILY 0RF
spironolactone 25 MG tablet
12.5 mg PO DAILY
furosemide 20 mg tablet
60 mg PO DAILY@0800
cholecalciferol (vitamin D3) 50 mcg (2,000 unit) Tablet
25 mcg PO DAILY
vitamin E (dl, acetate) 180 mg (400 unit) Capsule
180 mg PO DAILY
Eliquis 5 mg Tablet
5 mg PO BID
lidocaine 4 % Adhesive Patch,Medicated
1 patch TOPICAL DAILY
acetaminophen 650 mg Tablet Extended Release
1,300 mg PO DAILYPRN PRN (Reason: mild pain)
furosemide 20 mg tablet
20 mg PO NOON
esomeprazole magnesium [Nexium] 20 mg Capsule,Delayed Release(Dr/Ec)
20 mg PO DAILYPRN PRN (Reason: reflux)
Changed
potassium chloride 8 mEq tablet extended release
16 meq PO DAILY Qty: 10 0RF
Discharge Orders:
Discharge Patient (As Directed); Ordered 04/09/25
Ordered By: Toney Paul
Discharge Date and Time
Discharge Date/Time: 04/09/25 14:40
Print Language: IRAQI
== END 2025-04-09 14:40 | disposition home or self-care (01) | DRG 660 ==
LOC: 2 SOUTH 14:14
PROVIDERS: Clinical Nurse Specialist Family Health; Emergency Medicine; ADMITTING PHYSICIAN Hospitalist; ATTENDING PHYSICIAN Hospitalist; CONSULT PHYSICIAN Urology; EMERGENCY PHYSICIAN Emergency Medicine; FAMILY PHYSICIAN Family Medicine; OTHER PHYSICIAN Internal Medicine Infectious Disease
PROC: 0T768DZ Dilation of Right Ureter with Intraluminal Device, Via Natural or Artificial Opening Endoscopic (ICD-10-PCS; 2025-04-06)
DX: N13.6 Pyonephrosis (principal); I50.32 Chronic diastolic (congestive) heart failure; I08.3 Combined rheumatic disorders of mitral, aortic and tricuspid valves; I27.20 Pulmonary hypertension, unspecified; K21.9 Gastro-esophageal reflux disease without esophagitis; B95.2 Enterococcus as the cause of diseases classified elsewhere; I11.0 Hypertensive heart disease with heart failure; D72.829 Elevated white blood cell count, unspecified; E03.9 Hypothyroidism, unspecified; I48.0 Paroxysmal atrial fibrillation; E87.6 Hypokalemia; M17.11 Unilateral primary osteoarthritis, right knee; G60.0 Hereditary motor and sensory neuropathy; J45.909 Unspecified asthma, uncomplicated; K58.9 Irritable bowel syndrome, unspecified; M43.17 Spondylolisthesis, lumbosacral region; Z79.01 Long term (current) use of anticoagulants; Z79.890 Hormone replacement therapy
CPT/HCPCS: 51701; 74176; 80048; 80053; 80202; 81003; 81015; 83605; 85025; 87040; 87077; 87086; 87186; 93005; 96361; 96374; 97162; 97166; 97530; 99285; A4300; C2617

== ENCOUNTER → 2025-04-13 07:07 | Outpatient (REF) | payer MEDICARE, SELFPAY ==
[2025-04-13 07:44] LABS: Hematocrit 40.1 % (37.0-47.0); Hemoglobin 13.0 g/dL (12.0-16.0); Mean Corp Hgb Conc. 32.4 g/dL (33.0-37.0); Mean Corpuscular Volume 93.5 fL (81.0-99.0); Nucleated Red Blood Cells % 0 %; Platelet Count 257 10^3/uL (130-400); Red Cell Dist. Width 14.8 % (11.5-14.5)
[2025-04-13 08:04] LABS: Blood Urea Nitrogen 20 mg/dl (7-17); Calcium 9.2 mg/dl (8.4-10.2); Carbon Dioxide 33 mmol/L (22-30); Chloride 98 mmol/L (98-107); Glucose 123 mg/dl (70-99); Magnesium 2.0 mg/dl (1.6-2.3); Potassium 3.8 mmol/L (3.5-5.1); Sodium 139 mmol/L (135-145); eGFR 49.24
== END ==
LOC: REG 07:07
PROVIDERS: ATTENDING PHYSICIAN Family Medicine
DX: I10 Essential (primary) hypertension (principal); E03.9 Hypothyroidism, unspecified; K80.50 Calculus of bile duct without cholangitis or cholecystitis without obstruction; N20.0 Calculus of kidney
CPT/HCPCS: 36415; 80048; 83735; 85025

== ENCOUNTER 2025-04-21 11:36 | Emergency (ER) | payer MEDICARE, SELFPAY ==
--- NOTE | 2025-04-21 11:38 | ED.GENMED ---
History of Present Illness
General
Chief Complaint: Dizziness
Time Seen by Provider: 04/21/25 11:38
History of Present Illness
History of Present Illness:
FOCUSED PAST MEDICAL HISTORY
- A-fib Eliquis currently on hold, kidney stone, HFpEF
REVIEW OF OLD RECORDS
- I reviewed records, the patient has a history of Proteus Mirabella's bacteremia from this past February related to obstructed ureteral stone, and had stent placement and stone removal in February, she was found to have a 5 mm stone in the proximal
right ureter and had stent placement on 04/06/2025
Note:
CHIEF COMPLAINT(S)
The patient presented with complaints of lightheadedness.
HISTORY OF PRESENT ILLNESS
The patient is an 84-year-old individual experiencing lightheadedness, which is a new symptom. The presence of hematuria is noted, but it is not a new concern for the patient. The lightheadedness prompted the visit. The patient has an existing plan
for surgery in the coming days and has been on Levofloxacin, started two days ago. Apixaban (Eliquis) has been held for the past two days. There is a stent in place for a stone. According to the patients daughter, the lightheadedness is the primary
concern while hematuria has been discussed with the physician as a common occurrence. Daughter states she has been drinking plenty of fluids.
PHYSICAL EXAM
General: The patient appears comfortable.
Skin: Warm, dry. There is a relatively large circular patch of erythema with some petechial changes to both the back and distal left lower extremity
Head: Normocephalic, atraumatic.
Neck: Supple, trachea midline.
Eye, Ears, Nose, Mouth, and Throat: Oral mucosa moist.
Cardiovascular: Normal peripheral perfusion, No edema. Slightly irregular, normal rate
Respiratory: Respirations are non-labored.
Gastrointestinal: Abdomen nondistended.
Back: Normal range of motion, Normal alignment.
Musculoskeletal: Normal range of motion, normal strength. Some decreased active range of motion to the lower extremities which is chronic
Neurological: Alert and oriented to person, place, time, and situation, No focal neurological deficit observed. Normal [id number] testing
Psychiatric: Appears rather anxious
PROBLEM LIST
Acute:
- Lightheadedness
- Hematuria
Chronic:
- Kidney stone with stent in place
PLAN
The patient is scheduled for surgery in the next few days. Current focus is on managing the lightheadedness and monitoring symptoms related to hematuria while off anticoagulation due to its temporary hold.
DIFFERENTIAL DIAGNOSIS
The Differential Diagnosis includes, in no particular order and is not limited to:
1. Anemia
2. Dehydration
3. Orthostatic Hypotension
4. Urological disorder (related to kidney stones/stent)
5. Medication-related side effects
6. Urinary tract infection
7. Cardiac arrhythmias
8. Vestibular dysfunction
9. Blood clot complications (from anticoagulation hold)
10. Electrolyte imbalance
CARE-UPDATE
04/21/25 - 12:30
The patient had recent stents placed, with two stents added in the summer and another one earlier this month, managing with Dr. Hamilton. Currently, the patient is holding on taking Eliquis in preparation for a procedure scheduled for tomorrow. The
immediate reason for ambulance visit was lightheadedness with a sensation of impending fainting. EKG indicates atrial fibrillation, consistent with history. Current status shows improvement in symptoms, though heart rhythm remains irregular. IV
fluids have been administered due to suspected mild dehydration. Additional stress may be influencing current physical and emotional conditions. Noted presence of skin lesions, with one on the back identified as stress-related, observed previously
in patient history. Further evaluation will occur following blood work results.
EKG
- A-fib 85, normal axis, nonspecific ST abnormality
LABS
- White count normal, platelets normal, sodium 134, creatinine 1.1, bicarb 32
UPDATE
-SUMMARY OF ENCOUNTER
The patient, an 84-year-old individual, was seen in the emergency department due to complaints of lightheadedness. She has a history of atrial fibrillation, which was rate-controlled during her stay, and hematuria associated with a kidney stent.
Blood work showed a slightly impaired kidney function with a creatinine level of 1.1, consistent with previous results. Platelet count was normal. The patient received IV fluids to address mild dehydration and was monitored. The lightheadedness
might be stress-related as the patient displayed some anxiety during the stay. There were no critical concerns found that necessitated hospital admission, and she was stable for discharge.
DISPOSITION
Discharge.
PLAN
The patient is cleared for discharge and is advised to follow up with her primary care provider or specialist, especially related to her upcoming surgery.
INDEPENDENT REVIEW OF LABS AND INTERPRETATION OF TESTS
My independent review of kidney function shows a slightly impaired creatinine level of 1.1, consistent with prior lab results from eight days ago.
PATIENT EDUCATION AND COUNSELING
The patient was informed that lightheadedness might be due to stress or anxiety and the hematuria is expected due to the stent. Its important to remain hydrated, and if symptoms persist or worsen, they should seek further medical evaluation.
MEDICATION RECONCILIATION
IV fluids were administered during the visit to address mild dehydration.
MEDICAL DECISION MAKING
- Complexity of Data Reviewed: Chronic conditions affecting care include atrial fibrillation and kidney stone with stent in place. Differential diagnosis considered includes anemia, dehydration, orthostatic hypotension, urological disorder,
medication-related side effects, urinary tract infection, cardiac arrhythmias, vestibular dysfunction, blood clot complications, and electrolyte imbalance.
- Data:
Category 1: Clinical information was obtained from an independent historian, the patients daughter, who provided insight into the patient�s understanding and symptoms.
Category 3: No management discussions with specialists were indicated in the transcript.
- Risk: Consideration of Admission/Observation: Escalation of care including admission/observation was considered given the complexity and risk of the patients presenting complaint, exam findings, and their underlying comorbidities. However,
ultimately, the patient is deemed safe for outpatient management with close follow-up. Reasoning: Work-up is reassuring, does not reveal any acute life/organ-threatening processes, patients symptoms are well controlled upon reevaluation,
reexamination is reassuring, vitals are stable, patient agreeable with discharge, reliable for follow-up.
DIAGNOSIS
- Lightheadedness, likely multifactorial related to stress and mild dehydration.
- Hematuria associated with kidney stent.
Past History
Past History
ED Past Medical History: Arrthythmia (Atrial fibrillation.), Asthma, GERD, HTN and Hypothyroidism
ED Past Surgical History: Appendectomy, Cholecystectomy, Gynecological and Urological
Social History
Tobacco: Non-smoker
Alcohol: None
Drug: None
Living: alone
Employment: Retired
Family History
Family History: Other (Noncontributory)
Phy Exam
Physical Exam
Physical Exam:
See HPI
Course
Orders/Labs/Results
Orders:
Orders
04/21/25 12:08
EKG [Electrocardiogram (*1)] Urgent
Reason for Study: Vertigo / Dizzy
04/21/25 12:09
EKG- Treatment ONCE
04/21/25 12:12
Basic Metabolic Panel Urgent
Complete Blood Count/With Diff Urgent
04/21/25 12:31
0.9% Sodium Chloride 500 ml [Nss] 500 ml IV BOLUS
Abnormal Lab Results
04/21/25
12:12
MCHC 32.2 L g/dL
(33.0-37.0)
Abs Immat Gran (auto) 0.1 H 10^3/uL
(0-0.05)
Absolute Neuts (auto) 7.0 H 10^3/uL
(1.4-6.5)
Absolute Monos (auto) 1.2 H 10^3/uL
(0.1-0.6)
Immature Gran % 0.9 H %
(0-0.5)
Lymphocytes % 16.8 L %
(20.5-51.1)
Monocytes % 11.8 H %
(1.7-9.3)
Sodium 134 L mmol/L
(135-145)
Chloride 96 L mmol/L
(98-107)
Carbon Dioxide 32 H mmol/L
(22-30)
BUN 26 H mg/dl
(7-17)
Creatinine 1.1 H mg/dL
(0.6-1.0)
Glucose 110 H mg/dl
(70-99)
04/21/25 12:12
04/21/25 12:12
Vital Signs
Initial and Last Documented VS:
Initial Vital Signs
Temp
36.4 C
04/21/25 11:38
Last Documented Vital Signs
Temp Pulse Resp BP
36.4 C 83 18 110/70
04/21/25 11:38 04/21/25 11:39 04/21/25 11:39 04/21/25 11:39
*Pulse Oximetry
Patient hypoxic: no
*Critical Care Note
Total Time (30-74mins, 75-104mins- exclusive of procedures): Not Applicable
ED Attending Note
-
Portions of this chart may have been created with voice recognition software.� Occasional wrong word or��sound alike� substitutions may have occurred due to the inherent limitations of voice recognition software.
Discharge Plan
Departure
Prescriptions:
No Action
propranolol 80 MG tablet
80 mg PO DAILY
levothyroxine 125 MCG tablet
125 mcg PO DAILY
multivitamin with folic acid [Tab-A-Theo] 1 TABLET tablet
1 tab PO DAILY
diltiazem HCl 120 MG capsule,extended release 24hr
120 mg PO DAILY 0RF
spironolactone 25 MG tablet
12.5 mg PO DAILY
furosemide 20 mg tablet
60 mg PO DAILY@0800
cholecalciferol (vitamin D3) 50 mcg (2,000 unit) Tablet
25 mcg PO DAILY
vitamin E (dl, acetate) 180 mg (400 unit) Capsule
180 mg PO DAILY
Eliquis 5 mg Tablet
5 mg PO BID
lidocaine 4 % Adhesive Patch,Medicated
1 patch TOPICAL DAILY
acetaminophen 650 mg Tablet Extended Release
1,300 mg PO DAILYPRN PRN (Reason: mild pain)
furosemide 20 mg tablet
20 mg PO NOON
esomeprazole magnesium [Nexium] 20 mg Capsule,Delayed Release(Dr/Ec)
20 mg PO DAILYPRN PRN (Reason: reflux)
potassium chloride 8 mEq tablet extended release
16 meq PO DAILY Qty: 10 0RF
loratadine 10 mg Tablet
10 mg PO DAILY PRN (Reason: congestion)
Referrals:
Jennyfer Jackson DO [Family Provider, Family Practice]
Interventions
Interventions:
*Risk Screen - Suicide Last Done: 04/21/25 11:39
*General Assessment Last Done: 04/21/25 11:39
*Neglect/Abuse Screening Last Done: 04/21/25 11:39
*ED- Fall Risk Assessment Last Done: 04/21/25 13:08
*ED COVID-19 Vaccine History Last Done: 04/21/25 13:08
*ED Influenza Vaccine History Last Done: 04/21/25 13:08
ED- Neurological Assessment Last Done: 04/21/25 13:05
ED- Cardiac Assessment Last Done: 04/21/25 13:05
Discharge Date and Time
Print Language: TELUGU
[2025-04-21 11:39] VITALS: BP 110/70
[2025-04-21 11:41] VITALS: BP 110/70
[2025-04-21 12:23] LABS: Hematocrit 40.7 % (37.0-47.0); Hemoglobin 13.1 g/dL (12.0-16.0); Mean Corp Hgb Conc. 32.2 g/dL (33.0-37.0); Mean Corpuscular Volume 94.9 fL (81.0-99.0); Nucleated Red Blood Cells % 0 %; Platelet Count 233 10^3/uL (130-400); Red Cell Dist. Width 14.2 % (11.5-14.5)
[2025-04-21] MEDS: NSS 500 IV (12:47)
[2025-04-21 13:32] LABS: Blood Urea Nitrogen 26 mg/dl (7-17); Calcium 9.4 mg/dl (8.4-10.2); Carbon Dioxide 32 mmol/L (22-30); Chloride 96 mmol/L (98-107); Glucose 110 mg/dl (70-99); Sodium 134 mmol/L (135-145); eGFR 49.24
[2025-04-21 14:19] VITALS: BP 108/45
== END 2025-04-21 15:14 | disposition home or self-care (01) ==
LOC: EMR 11:36
PROVIDERS: EMERGENCY PHYSICIAN Emergency Medicine; FAMILY PHYSICIAN Family Medicine
DX: R42 Dizziness and giddiness (principal); I48.91 Unspecified atrial fibrillation; I11.0 Hypertensive heart disease with heart failure; I50.30 Unspecified diastolic (congestive) heart failure; E03.9 Hypothyroidism, unspecified; J45.909 Unspecified asthma, uncomplicated; Z87.442 Personal history of urinary calculi; Z90.49 Acquired absence of other specified parts of digestive tract
CPT/HCPCS: 99283; 96360; 80048; 85025; 93005

== ENCOUNTER 2025-04-22 06:18 | Day surgery (SDC) | payer MEDICARE, SELFPAY ==
--- NOTE | 2025-04-16 17:19 | PTCARENOTE ---
Abnormal ECG on 04/06/2025, reported to Dr. Castle; no further action required at this time.
[2025-04-22] VITALS (23 sets, daily range): BP systolic 82–119; BP diastolic 37–72; BMI 29.7
== END 2025-04-22 12:30 | disposition home or self-care (01) ==
LOC: SDS 06:18
PROVIDERS: ATTENDING PHYSICIAN Surgery; FAMILY PHYSICIAN Family Medicine
DX: N20.1 Calculus of ureter (principal); Z87.440 Personal history of urinary (tract) infections; Z98.890 Other specified postprocedural states
CPT/HCPCS: 52356; 74018; 76000; C1894; C2617

== ENCOUNTER 2025-06-20 22:18 | Observation (INO) | payer MEDICARE, SELFPAY ==
[2025-06-20 15:35] VITALS: BP 121/79
--- NOTE | 2025-06-20 17:19 | ED.GENMED ---
History of Present Illness
General
Chief Complaint: Vaginal Bleeding
Time Seen by Provider: 06/20/25 17:19
History of Present Illness
History of Present Illness:
FOCUSED PAST MEDICAL HISTORY
- Atrial fibrillation on Eliquis, Enrfzfe-Ondrl-Vfohk
REVIEW OF OLD RECORDS
- Patient went to the OR for management of right ureteral stone April 2025
Note:
CHIEF COMPLAINT(S)
Fall and vaginal bleeding.
HISTORY OF PRESENT ILLNESS
The patient is an 85-year-old female with a history of Ndjfpsk-Idokz-Pgkts disease (CMT) who presented after a fall earlier today around noon. According to the family, the patient fell once after turning away while attempting to scoot into the
living room. The family assisted her into a chair afterward. The patient has a longstanding weakness in the arms, making it difficult for her to get up from the ground, especially given her lack of sensation in the feet due to CMT. She has ongoing
physical therapy. Furthermore, she has recently experienced vaginal bleeding, which she noticed on her pad. The patient has a complex medical history, including previous kidney issues, and she wears a pad that showed blood today. She has a history
of hysterectomy.
PAST MEDICAL AND SURIGICAL HISTORY
Mznvdgc-Lhxam-Rhhfc disease.
History of kidney issues.
Hysterectomy.
ADDITIONAL HISTORY OBTAINED FROM SOURCES OTHER THAN THE PATIENT
Per the family, the patient fell while turning away around noon and required assistance to get back up. Family members mentioned the patient�s limitations due to generalized weakness and lack of sensation in her feet, which are attributed to CMT.
CHRONIC MEDICAL CONDITIONS SIGNIFICANTLY AFFECTING CARE
Bpxiwkt-Jsjex-Lqqrk disease.
Arthritis.
Atrial fibrillation.
MEDICATIONS
The patient is currently on apixaban (Eliquis).
REVIEW OF SYSTEMS
- Neurological: Chronic weakness in all extremities.
- Genitourinary: Vaginal bleeding noted by blood on the pad.
- Musculoskeletal: Chronic arm weakness limits mobility; lacks sensation in the feet.
- Cardiovascular: On a blood thinner for atrial fibrillation.
PHYSICAL EXAM
General: Alert, no acute distress.
Skin: Warm, dry.
Head: Normocephalic, atraumatic.
Neck: Supple, trachea midline.
Eye Ears, nose, mouth and throat: Oral mucosa moist.
Cardiovascular: Normal peripheral perfusion, No edema.
Respiratory: Respirations are non-labored.
Gastrointestinal : Abdomen nondistended
Back: Normal range of motion, Normal alignment.
Musculoskeletal: Weak in all extremities, normal range of motion where specified.
Neurological: Alert and oriented to person, place, time, and situation, No focal neurological deficit observed.
Psychiatric: Cooperative, appropriate mood & affect.
PROBLEM LIST
Acute Problems:
- Fall.
- Vaginal bleeding.
Chronic Problems:
- Adcaccc-Xdtbg-Vnixe disease.
- Atrial fibrillation.
- Arthritis.
PLAN
- Blood work to assess the patients current status.
- Plan to perform a regular speculum examination to evaluate the source of vaginal bleeding.
- Reconsider the necessity of pelvic ultrasound given the patient�s history of hysterectomy.
- Potential workup for kidney stones given the symptomatology and past history.
- Arrange for transportation and potential discharge if results are unremarkable and the patient feels capable of returning home.
DIFFERENTIAL DIAGNOSIS
The Differential Diagnosis includes, in no particular order and is not limited to:
- Postmenopausal bleeding.
- Vaginal trauma post-fall.
- Urinary tract infection with hematuria.
- Kidney stones.
- Vaginal atrophy.
- Coagulopathy due to apixaban.
- Secondary effects of Wgfaxra-Dfhye-Emnif disease.
- Neuropathy related gait imbalance leading to fall.
- Neoplastic disease of the urinary system.
- Bleeding disorder or anticoagulation complication.
SUMMARY OF ENCOUNTER
The patient, an 85-year-old female with a history of Thxbmnc-Bilyr-Qljwh disease, presented to the emergency department following a fall and subsequent vaginal bleeding. Initial concerns included the underlying cause of the bleeding, given her
recent history of using apixaban for atrial fibrillation. A speculum examination was performed but was limited due to difficulties with patient positioning, possibly related to her inability to bend the right knee. During the exam, a significant
clot was found and removed. The findings raised concerns about bleeding from a potentially mass-like structure, possibly involving the urethra. Considering the patients advanced age, weakness from Otxxoxe-Zbswx-Hkexn disease, and ongoing bleeding,
hospitalization was decided upon for further observation and management.
DISPOSITION
Admit
ASSESSMENT
Concern for vaginal bleeding potentially due to a mass-like structure near the urethra, with differential diagnoses including postmenopausal bleeding, vaginal trauma, and coagulopathy from anticoagulation use.
PLAN
- Monitor the patient closely for signs of continued bleeding and ensure adequate supportive care given her medical history.
- Further evaluation of the mass-like structure and the potential source of bleeding once the patient is stabilized and more comfortable.
- Consider consultation with gynecology or urology for further assessment and management.
- Assess the necessity of imaging studies to evaluate possible underlying issues contributing to bleeding.
- Monitor blood counts and coagulation parameters given ongoing bleeding and anticoagulant use.
MEDICAL DECISION MAKING
-Complexity of Data Reviewed: Chronic conditions affecting care [Fdnjutf-Yfvlf-Sngwj disease, atrial fibrillation, hysterectomy, arthritis]. Differential Diagnosis includes postmenopausal bleeding, vaginal trauma post-fall, urinary tract infection
with hematuria, kidney stones, vaginal atrophy, coagulopathy due to apixaban, secondary effects of Vulecwc-Ohcgs-Ryliz disease, neuropathy-related gait imbalance leading to fall, neoplastic disease of the urinary system, bleeding disorder or
anticoagulation complication.
-Data:
Category 1
The speculum examination findings were interpreted independently, though limited by patient positioning issues.
Category 2
Clinical information was obtained from an independent historian, namely the patients family.
-Risk:
Prescription medication was prescribed and list the apixaban.
Due to the complexity and risk of the patients presenting complaint and ongoing bleeding concerns, admission for close monitoring was deemed necessary.
RADIOLOGY
- CT imaging confirms history of hysterectomy and shows no acute abnormality
LABS
- Hemoglobin 13.6 which is higher than prior when it was 13.1
UPDATE
- Hemoglobin stable
- Vital stable
- However she has ongoing bleeding which may or may not be coming from the urethral meatus on limited speculum exam
- Relatively large amount of blood clot on vaginal examination
- Discussed with Dr. Hamilton as well as Dr. Joseph
Past History
Past History
ED Past Medical History: Arrthythmia (Atrial fibrillation.), Asthma, GERD, HTN and Hypothyroidism
ED Past Surgical History: Appendectomy, Cholecystectomy, Gynecological and Urological
Social History
Tobacco: Non-smoker
Alcohol: None
Drug: None
Living: alone
Employment: Retired
Family History
Family History: Other (Noncontributory)
Phy Exam
Physical Exam
Physical Exam:
See HPI
Course
Orders/Labs/Results
Orders:
Orders
06/20/25 17:29
CT Abd/pel Without Iv Or Oral Urgent
Comment:
Reason For Exam: back pain; vag bleeding; h/o stones;hysterect;fall
06/20/25 19:32
Type And Crossmatch [Type+Screen] Urgent
Complete Blood Count/With Diff Urgent
Comprehensive Metabolic Panel Urgent
06/20/25 21:41
Admit/Transfer Patient As Directed
Co-Sign Provider:
Level of Care: Observation services
Assign to:: Medical/Surgical
Physician / Group: [facility]
Diagnosis: Hematuria due to anticoagulation
PRN Pain Medication Management As Directed
May give lesser potent ordered pain med per pt: Yes
preference::
Protocol:: Medication orders for pain may be administered in a
manner that supports deferring to patient preference
when the pt is:
- Requesting an ordered lesser potent pain medication.
Least to most potent pain medications are defined
as: acetaminophen < NSAID < tramadol < opioids
(morphine, oxycodone, hydromorphone).
- Requesting a lesser dose of the same medication IF
ORDERED.
- Requesting a less intrusive route of administration
if both routes are prescribed by the provider (PO <
IV).
06/20/25 21:43
Code Status As Directed
Resuscitation Status: Full Code
06/20/25 21:46
Straight cath- Treatment ONCE
Urinalysis Reflex To Culture Urgent
Abnormal Lab Results
06/20/25
19:32
WBC 12.9 H 10^3/uL
(4.8-10.8)
MCHC 32.8 L g/dL
(33.0-37.0)
Abs Immat Gran (auto) 0.1 H 10^3/uL
(0-0.05)
Absolute Neuts (auto) 10.7 H 10^3/uL
(1.4-6.5)
Absolute Monos (auto) 0.8 H 10^3/uL
(0.1-0.6)
Neutrophils % 83.1 H %
(42.2-75.2)
Lymphocytes % 10.0 L %
(20.5-51.1)
Sodium 134 L mmol/L
(135-145)
BUN 29 H mg/dl
(7-17)
Creatinine 1.2 H mg/dL
(0.6-1.0)
06/20/25 19:32
06/20/25 19:32
Vital Signs
Initial and Last Documented VS:
Initial Vital Signs
Temp Pulse Resp BP Pulse Ox
36.7 C 80 18 121/79 94
06/20/25 15:35 06/20/25 15:35 06/20/25 15:35 06/20/25 15:35 06/20/25 15:35
Last Documented Vital Signs
Temp Pulse Resp BP Pulse Ox
36.7 C 80 18 121/79 94
06/20/25 15:35 06/20/25 15:35 06/20/25 15:35 06/20/25 15:35 06/20/25 17:20
Procedures
IV Access
Indication: Other (Pulmonary: This is not for IV access but rather peripheral venipuncture for labs)
Performed by:: Ri, Dr. Melendez
Site:: Right groin
Gauge:: 18-gauge
Ultrasound Guidance: No
*Pulse Oximetry
SaO2: 94
Oxygen Mode of Delivery: Room air
Patient hypoxic: no
*Critical Care Note
Total Time (30-74mins, 75-104mins- exclusive of procedures): Not Applicable
ED Attending Note
-
Portions of this chart may have been created with voice recognition software.� Occasional wrong word or��sound alike� substitutions may have occurred due to the inherent limitations of voice recognition software.
Discharge Plan
Departure
Patient Disposition: Admit
Date of Disposition: 06/20/25
Time of Disposition: 20:45
Presentation/result/management discussed w/ accepting MD/DO: Hospitalist
Patient with high blood pressure during this ER visit?: Yes
Discharge Problem:
Anticoagulated on Eliquis
Prescriptions:
No Action
propranolol 80 MG tablet
80 mg PO DAILY
levothyroxine 125 MCG tablet
125 mcg PO DAILY
multivitamin with folic acid [Tab-A-Theo] 1 TABLET tablet
1 tab PO DAILY
diltiazem HCl 120 MG capsule,extended release 24hr
120 mg PO DAILY 0RF
spironolactone 25 MG tablet
12.5 mg PO DAILY
furosemide 20 mg tablet
60 mg PO DAILY@0800
cholecalciferol (vitamin D3) 50 mcg (2,000 unit) Tablet
25 mcg PO DAILY
vitamin E (dl, acetate) 180 mg (400 unit) Capsule
180 mg PO DAILY
Eliquis 5 mg Tablet
5 mg PO BID
lidocaine 4 % Adhesive Patch,Medicated
1 patch TOPICAL DAILY
acetaminophen 650 mg Tablet Extended Release
1,300 mg PO DAILYPRN PRN (Reason: mild pain)
furosemide 20 mg tablet
20 mg PO NOON
esomeprazole magnesium [Nexium] 20 mg Capsule,Delayed Release(Dr/Ec)
20 mg PO DAILYPRN PRN (Reason: reflux)
potassium chloride 8 mEq tablet extended release
16 meq PO DAILY Qty: 10 0RF
loratadine 10 mg Tablet
10 mg PO DAILY PRN (Reason: congestion)
Referrals:
Jennyfer Jackson DO [Family Provider, Family Practice]
Interventions
Interventions:
*General Assessment Last Done: 06/20/25 22:01
*Neglect/Abuse Screening Last Done: 06/20/25 22:01
[facility] Risk Assessment Tool Last Done: 06/20/25 21:53
*Risk Screen - Suicide (C-SSRS) Last Done: 06/20/25 15:35
ED-Female Genitourinary Assessment Last Done: 06/20/25 18:55
ED-Musculoskeletal Assessment Last Done: 06/20/25 21:32
ED- Neurological Assessment Last Done: 06/20/25 18:55
ED-Skin Assessment Last Done: 06/20/25 21:32
Discharge Date and Time
Print Language: KITTITIAN
[2025-06-20 19:37] LABS: Hematocrit 41.5 % (37.0-47.0); Hemoglobin 13.6 g/dL (12.0-16.0); Mean Corp Hgb Conc. 32.8 g/dL (33.0-37.0); Mean Corpuscular Volume 93.7 fL (81.0-99.0); Nucleated Red Blood Cells % 0 %; Platelet Count 226 10^3/uL (130-400); Red Cell Dist. Width 14.3 % (11.5-14.5)
[2025-06-20 20:03] LABS: ALT (SGPT) 16 U/L (0-35); AST (SGOT) 27 U/L (14-36); Albumin 4.5 g/dl (3.5-5.0); Alkaline Phosphatase 60 U/L (38-126); Blood Urea Nitrogen 29 mg/dl (7-17); Calcium 9.3 mg/dl (8.4-10.2); Carbon Dioxide 25 mmol/L (22-30); Chloride 98 mmol/L (98-107); Glucose 98 mg/dl (70-99); Potassium 4.2 mmol/L (3.5-5.1); Sodium 134 mmol/L (135-145); Total Protein 7.9 g/dl (6.3-8.2); eGFR 44.08
--- NOTE | 2025-06-20 20:56 | HPS.HSE ---
Family Physician
-
Family Physician: Jennyfer Jackson
Medical History
Past Medical History
Past Medical History: Reports Other
Additional Past Medical History:
Choledocholithiasis
Cholangitis
Charcot Piper tooth muscular atrophy
Hypertension
IBS
Mitral valve prolapse
Osteoarthritis
urosepsis obstructing right UVJ stone status post extraction with right JJ stent 02/04/2025/pyelonephritis
Past Surgical History: Reports Other
Additional Past Surgical History:
Cystoscopy right ureteroscopy stone manipulation right retrograde pyelogram right ureteral stent placement 02/04/2025 obstructing right UVJ stone
Cholecystectomy
Hysterectomy
Appendectomy
Social History
Tobacco: Non-smoker
Alcohol: None
Drug: None
Personal: Single
Living: Alone (Single home)
Employment: Retired
Family History
Family History: Other (Brother history of A-fib, pacemaker, mother COPD 80s, father old age 80s)
Allergies / Home Medications
Allergies reflects when Allergies were last updated in [facility].
Home Medications with original date entered in [facility]
Allergy/Medication List:
Allergies
Allergy/AdvReac Type Severity Reaction Status Date / Time
cortisone Allergy Unknown Verified 04/06/25 08:10
mushroom Allergy Unknown Verified 04/06/25 08:10
Penicillins Allergy Unknown Verified 04/06/25 08:10
strawberry Allergy Unknown Verified 04/06/25 08:10
tetanus toxoid, adsorbed Allergy Unknown Verified 04/06/25 08:10
Home Medications
levothyroxine 125 mcg tablet 125 mcg PO DAILY Thyroid 06/26/21
multivitamin with folic acid 400 mcg tablet (Tab-A-Theo) 1 tab PO DAILY Supplement 06/26/21
propranolol 80 mg tablet 80 mg PO DAILY Neurological Condition 06/26/21
diltiazem HCl 120 mg capsule,extended release 24 hr 120 mg PO DAILY 07/04/21
spironolactone 25 mg tablet 12.5 mg PO DAILY Blood Pressure 03/13/22
cholecalciferol (vitamin D3) 50 mcg (2,000 unit) tablet 25 mcg PO DAILY Supplement 02/25/24
furosemide 20 mg tablet 60 mg PO DAILY@0800 Fluid Retention/Swelling 02/25/24
potassium chloride 8 mEq tablet,extended release 8 meq PO DAILY Electrolyte Repletion 02/25/24
apixaban 5 mg tablet (Eliquis) 5 mg PO BID Blood Clot Prevention/Tx 02/04/25
vitamin E (dl, acetate) 180 mg (400 unit) capsule 180 mg PO DAILY Supplement 02/04/25
acetaminophen 650 mg tablet,extended release 1,300 mg PO DAILYPRN PRN mild pain 04/06/25
esomeprazole magnesium 20 mg capsule,delayed release (Nexium) 20 mg PO DAILYPRN PRN reflux 04/06/25
furosemide 20 mg tablet 20 mg PO NOON 04/06/25
lidocaine 4 % topical patch 1 patch topical DAILY r knee 04/06/25
Review of Systems
-
History Source: Patient and Family (Daughter Nahomy RHOADES at bedside)
A 12 point ROS was completed and negative except as noted: Yes
Constitutional: Denies Fever, Fatigue or Chills
EENT: Denies Sore Throat or Runny Nose
Respiratory: Denies Cough or Trouble Breathing
Cardiac: Denies Chest Pain, Diaphoresis, Palpitations or Syncope
Abdomen/GI: Reports Abdominal Pain (Suprapubic bilateral anterior abdomen); Denies Nausea, Vomiting, Diarrhea, Constipated, Bloody Stools or Black Stools
: Reports Bleeding (Hematuria/vaginal bleeding); Denies Dysuria, Frequency or Flank Pain
Musculoskeletal: Denies Joint Pain or Edema
Skin: Denies Itching or Rash
Neurological: Denies Dizzy, Headache or Weakness
Endocrine: Reports No Symptoms
Hematologic/Lymphatic: Reports No Symptoms
Psych: Reports Calm
Physical Exam
Vital Signs
Vital Signs
Temp Pulse Resp BP Pulse Ox
98.1 F 80 18 121/79 94
06/20/25 15:35 06/20/25 15:35 06/20/25 15:35 06/20/25 15:35 06/20/25 17:20
Physical Exam
General: Comfortable and Conversant; No Pain, Fever or Chills
HEENT: NormoCephalic, Anicteric, Moist mucous membranes, [place] Conjunctivae and No Ptosis
Respiratory: Clear; No Wheezes, Rales or Rhonchi
Cardiac: S1/S2; No Murmur, Rub, Gallop or Peripheral Edema
GI: Soft, Non Tender, Non Distended, Normal Bowel Sounds and No Hepatosplenomegaly
Rectal: Deferred by Provider
Genito-urinary: Deferred by me
Musculoskeletal: No Clubbing, No Cyanosis and No Edema
Skin: Warm and Dry; No Rash
Neuro: AO x 3, Nonfocal/grossly intact, Cranial Nerves Intact, No Sensory Deficits and Sedated; No Slurred Speech, Facial Droop or Tremors
Psych: Calm
Laboratory Results
-
06/20/25 19:32
06/20/25 19:32
Laboratory Results
Total Bilirubin 0.8 mg/dl (0.2-1.3) 06/20/25 19:32
AST 27 U/L (14-36) 06/20/25 19:32
ALT 16 U/L (0-35) 06/20/25 19:32
Alkaline Phosphatase 60 U/L (38-126) 06/20/25 19:32
Data Reviewed
-
CT Scan: Report Reviewed by me
Lab Data: Labs Reviewed by me
Old Records: Reviewed
Impression/Plan
-
IMPRESSION:
PLAN:
--- NOTE | 2025-06-20 21:34 | HPS.HSE ---
Family Physician
-
Family Physician: Jennyfer Jackson
Chief Complaint
-
Vaginal bleeding
History of Present Illness
This is a 85-year-old female with past medical history significant for atrial fibrillation on anticoagulation, hypertension, hyperlipidemia, charcoaled [place] tooth with chronic ambulatory dysfunction, GERD, hypothyroid and diastolic heart failure
who presents to the emergency department with episode of vaginal bleeding/hematuria.
Patient reported being in usual state of health up until a mechanical fall this afternoon. She fell while ambulating with a walker. She had no lightheadedness or dizziness. This was attributed to chronic ambulatory dysfunction. After the fall
she attempted to use the commode and when she wiped herself she had blood on the pads. She denied having any bloody stools. She denied having any abdominal discomfort, pelvic discomfort, dysuria frequency or urgency.
Patient has a prior history of nephrolithiasis status post stone extraction stenting and removal of stents. She denies any flank pain. She last used her Eliquis at 7 AM.
In the emergency department she was afebrile, blood pressure was 120/80 with a pulse of 80 and oxygen saturation of 94% on room air. Hemoglobin was 13.6 which is similar to her baseline. White count was 12.9 with a platelet of 226. Her
electrolytes BUN/creatinine were all in the normal range.
She had a CT of the abdomen pelvis which showed no acute findings, specifically no evidence of obstructing renal calculus. Nonobstructing renal calculi within the right kidney measuring up to 3 mm. Colonic diverticulosis.
Pelvic exam performed in the emergency department revealed small amount of blood coming from the urethra. There are some clots in the vaginal vault.
Medical History
Past Medical History
Past Medical History: Reports Other
Additional Past Medical History:
Choledocholithiasis
Cholangitis
Charcot Piper tooth muscular atrophy
Hypertension
IBS
Mitral valve prolapse
Osteoarthritis
urosepsis obstructing right UVJ stone status post extraction with right JJ stent 02/04/2025/pyelonephritis
Past Surgical History: Reports Other
Additional Past Surgical History:
Cystoscopy right ureteroscopy stone manipulation right retrograde pyelogram right ureteral stent placement 02/04/2025 obstructing right UVJ stone
Cholecystectomy
Hysterectomy
Appendectomy
Social History
Tobacco: Non-smoker
Alcohol: None
Drug: None
Personal: Single
Living: Alone (Single home)
Employment: Retired
Family History
Family History: Other (Brother history of A-fib, pacemaker, mother COPD 80s, father old age 80s)
Allergies / Home Medications
Allergies reflects when Allergies were last updated in [employer].
Home Medications with original date entered in [employer]
Allergy/Medication List:
Allergies
Allergy/AdvReac Type Severity Reaction Status Date / Time
cortisone Allergy Unknown Verified 04/06/25 08:10
mushroom Allergy Unknown Verified 04/06/25 08:10
Penicillins Allergy Unknown Verified 04/06/25 08:10
strawberry Allergy Unknown Verified 04/06/25 08:10
tetanus toxoid, adsorbed Allergy Unknown Verified 04/06/25 08:10
Home Medications
levothyroxine 125 mcg tablet 125 mcg PO DAILY Thyroid 06/26/21
multivitamin with folic acid 400 mcg tablet (Tab-A-Theo) 1 tab PO DAILY Supplement 06/26/21
propranolol 80 mg tablet 80 mg PO DAILY Neurological Condition 06/26/21
diltiazem HCl 120 mg capsule,extended release 24 hr 120 mg PO DAILY 07/04/21
spironolactone 25 mg tablet 12.5 mg PO DAILY Blood Pressure 03/13/22
cholecalciferol (vitamin D3) 50 mcg (2,000 unit) tablet 25 mcg PO DAILY Supplement 02/25/24
furosemide 20 mg tablet 60 mg PO DAILY@0800 Fluid Retention/Swelling 02/25/24
potassium chloride 8 mEq tablet,extended release 8 meq PO DAILY Electrolyte Repletion 02/25/24
apixaban 5 mg tablet (Eliquis) 5 mg PO BID Blood Clot Prevention/Tx 02/04/25
vitamin E (dl, acetate) 180 mg (400 unit) capsule 180 mg PO DAILY Supplement 02/04/25
acetaminophen 650 mg tablet,extended release 1,300 mg PO DAILYPRN PRN mild pain 04/06/25
esomeprazole magnesium 20 mg capsule,delayed release (Nexium) 20 mg PO DAILYPRN PRN reflux 04/06/25
furosemide 20 mg tablet 20 mg PO NOON 04/06/25
lidocaine 4 % topical patch 1 patch topical DAILY r knee 04/06/25
Review of Systems
-
History Source: Patient and Family (Daughter Nahomy RHOADES at bedside)
A 12 point ROS was completed and negative except as noted: Yes
Constitutional: Denies Fever, Fatigue or Chills
EENT: Denies Sore Throat or Runny Nose
Respiratory: Denies Cough or Trouble Breathing
Cardiac: Denies Chest Pain, Diaphoresis, Palpitations or Syncope
Abdomen/GI: Reports Abdominal Pain (Suprapubic bilateral anterior abdomen); Denies Nausea, Vomiting, Diarrhea, Constipated, Bloody Stools or Black Stools
: Reports Bleeding (Hematuria/vaginal bleeding); Denies Dysuria, Frequency or Flank Pain
Musculoskeletal: Denies Joint Pain or Edema
Skin: Denies Itching or Rash
Neurological: Denies Dizzy, Headache or Weakness
Endocrine: Reports No Symptoms
Hematologic/Lymphatic: Reports No Symptoms
Psych: Reports Calm
Physical Exam
Vital Signs
Vital Signs
Temp Pulse Resp BP Pulse Ox
98.1 F 80 18 121/79 94
06/20/25 15:35 06/20/25 15:35 06/20/25 15:35 06/20/25 15:35 06/20/25 17:20
Physical Exam
General: Comfortable and Conversant; No Pain, Fever or Chills
HEENT: NormoCephalic, Anicteric, Moist mucous membranes, [place] Conjunctivae and No Ptosis
Respiratory: Clear; No Wheezes, Rales or Rhonchi
Cardiac: S1/S2; No Murmur, Rub, Gallop or Peripheral Edema
GI: Soft, Non Tender, Non Distended, Normal Bowel Sounds and No Hepatosplenomegaly
Rectal: Deferred by Provider
Genito-urinary: Deferred by me
Musculoskeletal: No Clubbing, No Cyanosis and No Edema
Skin: Warm and Dry; No Rash
Neuro: AO x 3, Nonfocal/grossly intact, Cranial Nerves Intact, No Sensory Deficits and Sedated; No Slurred Speech, Facial Droop or Tremors
Psych: Calm
Laboratory Results
-
06/20/25 19:32
06/20/25 19:32
Laboratory Results
Total Bilirubin 0.8 mg/dl (0.2-1.3) 06/20/25 19:32
AST 27 U/L (14-36) 06/20/25 19:32
ALT 16 U/L (0-35) 06/20/25 19:32
Alkaline Phosphatase 60 U/L (38-126) 06/20/25 19:32
Data Reviewed
-
CT Scan: Report Reviewed by me
Lab Data: Labs Reviewed by me
Old Records: Reviewed
Impression/Plan
-
IMPRESSION:
85-year-old with history of atrial fibrillation anticoagulation who presents to the emergency department following a mechanical fall and development of hematuria. ED examination revealed blood from meatus. No vaginal bleeding but there were some
clots in the vaginal vault. CT scan of the abdomen pelvis was unremarkable with no acute findings including nonobstructing renal calculi within the right kidney, diverticulosis and no evidence of obstructing renal calculi. She is urinating fine
and she has been urinating using a external catheter at this time. She has punch colored urine. Renal function is stable. Suspect the hematuria is secondary to trauma in the setting of anticoagulation. She denies any acute symptoms consistent
with urinary tract infection.
PLAN:
Hematuria -trauma and on Eliquis, hemoglobin is stable
� Admit to MedSurg observation
� Case discussed with urology, patient is urinating fine, no indication for indwelling catheter at this time
� Monitor ins and outs and bladder scan routinely
� Hold anticoagulation for now, no indication for reversal
� Type and screen, trend H&H
Atrial fibrillation -stable rate control at this time
� Holding Eliquis for now
� Continue diltiazem, also on propranol for tremor?
Diastolic heart failure
� Continue furosemide 60 mg p.o. daily
� Continue furosemide 20 mg at noon
GERD
� Continue omeprazole
DVT prophylaxis�SCDs for now
CODE STATUS�full code
[2025-06-20 22:56] VITALS: BMI 30.6
[2025-06-21 00:02] VITALS: BMI 30.6
[2025-06-21 00:10] VITALS: BP 131/62
[2025-06-21 00:43] LABS: Urine Character Cloudy (Clear)
[2025-06-21 02:43] LABS: Urine Red Blood Cell >100 /HPF (0-2)
[2025-06-21] MEDS: SYNTHROID 125 MCG PO (05:48)
[2025-06-21 05:56] VITALS: BMI 30.7
--- NOTE | 2025-06-21 05:58 | PTCARENOTE ---
Patient received from ED via stretcher and was pulled to bed by staff. She was oriented to room and surroundings. She continues with sm vaginal clots and hematuria. Urine specimen to lab. Heart failure book given and videos assigned. Patient
denies pain. She is oriented X3 HRR, +2 LE edema lungs are CTA b/l. No BM this shift
[2025-06-21 07:37] LABS: Hematocrit 37.8 % (37.0-47.0); Hemoglobin 13.0 g/dL (12.0-16.0); Mean Corp Hgb Conc. 34.4 g/dL (33.0-37.0); Mean Corpuscular Volume 90.4 fL (81.0-99.0); Platelet Count 196 10^3/uL (130-400); Red Cell Dist. Width 14.3 % (11.5-14.5)
[2025-06-21 07:47] VITALS: BP 123/62
[2025-06-21 08:24] LABS: Blood Urea Nitrogen 27 mg/dl (7-17); Calcium 8.8 mg/dl (8.4-10.2); Carbon Dioxide 21 mmol/L (22-30); Chloride 102 mmol/L (98-107); Estimated Creatinine Clearance 32 ml/min; Glucose 109 mg/dl (70-99); Potassium 3.9 mmol/L (3.5-5.1); Sodium 134 mmol/L (135-145); eGFR 44.08
[2025-06-21] MEDS: THERAGRAN 1 TABLET PO (09:13)
[2025-06-21] MEDS: LIDOCAINE 4% PATCH 1 PATCH TOPICAL (09:14)
[2025-06-21] MEDS: ALDACTONE 12.5 MG PO (09:16)
[2025-06-21] MEDS: CARDIZEM CD 120 MG PO (09:16)
--- NOTE | 2025-06-21 11:03 | W.PN.HOSP.TC ---
Today's Communication/Plan
-
Urology and MANAGER OF MEDICAL eval
Assessment / Plan
Assessment / Plan
Physical exam:
General: Well Developed, Well Nourished and No Apparent Distress
HEENT: Normocephalic, Atraumatic and Moist Mucous Membranes
Respiratory: Clear to Auscultation; Negative Wheezes, Rales or Rhonchi
Cardiac: Regular Rhythm and S1/S2
GI: Soft, Nontender and Nondistended
Musculoskeletal: No Clubbing, No Cyanosis and No Edema
Neuro: Awake, Alert and Oriented, no neurological deficit
Psych: Calm
A/P:
Hematuria versus vaginal bleeding:
Repeat hemoglobin now
CT abdomen pelvis unremarkable
Continue monitor hemoglobin
Will request urology and MANAGER OF MEDICAL eval-discussed with both.
Discussed with daughter at bedside
Possible UTI:
Start empirically on IV antibiotic, ceftriaxone
Do graded challenge of ceftriaxone due to ?allergies
Fall:
Appears to be mechanical fall
PT OT eval
Paroxysmal atrial fibrillation
Continue rate control, diltiazem
Hold anticoagulation for now
front desk monitor
Chronic HFpEF:
Monitor volume status
Continue diuretic
Monitor ins and outs and daily weight
Hyponatremia:
Mild
Trend in a.m.
CKD stage IIIb:
Avoid nephrotoxic
Monitor renal function in am
DVT prophylaxis:
SCDs
CODE STATUS:
Full code
Total time spent on today's encounter was 35 minutes which included time spent in counseling the patient/family regarding diagnosis and treatment plan as listed above, goals of care, and symptom management. Case was discussed with nursing staff,
specialists, and care coordinators/case management. All labs and imaging personally reviewed by me. Remainder the time spent in detailed review of previous records, lab data, imaging, and other medical provider documentation.
Anticipated Discharge: 24 - 48 hours
Subjective/Interval History
-
Date of Service: June 21, 2025
Patient was feeling better this morning. She says no more bleeding but after I left the room, RN reported that she started having some more bleeding with blood clots.
Objective Data
-
Labs:
Laboratory Results
06/21/25
07:03
WBC 7.7
Hgb 13.0
Hct 37.8
Plt Count 196
Sodium 134 L
Potassium 3.9
Chloride 102
Carbon Dioxide 21 L
BUN 27 H
Creatinine 1.2 H
Glucose 109 H
Calcium 8.8
Vital Signs:
Vital Signs
Temp Pulse Resp BP Pulse Ox
98.5 F 90 18 123/62 92
06/21/25 07:47 06/21/25 07:47 06/21/25 07:47 06/21/25 07:47 06/21/25 07:47
I&O
06/20/25 06/21/25 06/22/25
06:59 06:59 06:59
Output Total
Balance -1 / -1
[2025-06-21] MEDS: INDERAL 80 MG PO (11:56)
[2025-06-21] MEDS: LASIX 60 MG PO (11:59)
[2025-06-21 13:22] VITALS: BP 123/56; PULSE 88; O2SAT 96
--- NOTE | 2025-06-21 13:32 | CONS.URO ---
Consultation
-
Date/Time Consultation Performed: 1430 06/21/25
Performing Provider: Peffer
Reason for Consultation: Hematuria
Medical History
History of Present Illness
85F with recent history of kidney stones and UTI
04/22/25 - ureteroscopy for stone removal
04/30/25 - stent removal and cystoscopy in the office
Allergies/Home Medications
Allergies
Allergy/AdvReac Type Severity Reaction Status Date / Time
mushroom Allergy Unknown Verified 06/20/25 15:40
Penicillins Allergy Rash Verified 06/20/25 15:40
strawberry Allergy Unknown Verified 06/20/25 15:40
tetanus toxoid, adsorbed Allergy Unknown Verified 06/20/25 15:40
Home Medications
�Medication �Instructions �Recorded �Confirmed �Type
levothyroxine 125 mcg tablet 125 mcg PO DAILY Thyroid 06/26/21 06/20/25 History
multivitamin with folic acid 400 1 tab PO DAILY Supplement 06/26/21 06/20/25 History
mcg tablet (Tab-A-Theo)
propranolol 80 mg tablet 80 mg PO DAILY Neurological 06/26/21 06/20/25 History
Condition
diltiazem HCl 120 mg 120 mg PO DAILY 07/04/21 06/20/25 Rx
capsule,extended release 24 hr
spironolactone 25 mg tablet 12.5 mg PO DAILY Blood Pressure 03/13/22 06/20/25 History
cholecalciferol (vitamin D3) 50 25 mcg PO DAILY Supplement 02/25/24 06/20/25 History
mcg (2,000 unit) tablet
furosemide 20 mg tablet 60 mg PO DAILY@0800 Fluid 02/25/24 06/20/25 History
Retention/Swelling
apixaban 5 mg tablet (Eliquis) 5 mg PO BID Blood Clot 02/04/25 06/20/25 History
Prevention/Tx
vitamin E (dl, acetate) 180 mg 180 mg PO DAILY Supplement 02/04/25 06/20/25 History
(400 unit) capsule
acetaminophen 650 mg 1,300 mg PO DAILYPRN PRN mild pain 04/06/25 06/20/25 History
tablet,extended release
furosemide 20 mg tablet 20 mg PO NOON Fluid 04/06/25 06/20/25 History
Retention/Swelling
lidocaine 4 % topical patch 1 patch topical DAILY r knee 04/06/25 06/20/25 History
potassium chloride 8 mEq 16 meq (2 x 8 mEq) PO DAILY 04/09/25 06/20/25 Rx
tablet,extended release Electrolyte Repletion #10 tabs
loratadine 10 mg tablet 10 mg PO DAILY PRN congestion 04/18/25 06/20/25 History
Physical Exam
Vital Signs
Vital Signs
Temp Pulse Resp BP Pulse Ox
98.5 F 94 18 111/59 92
06/21/25 07:47 06/21/25 11:56 06/21/25 07:47 06/21/25 11:56 06/21/25 07:47
Lab / Testing Results
Laboratory Results
06/21/25 07:03
Assessment / Plan
-
85F with recent kidney stones and procedures 04/2025
Admitted with gross hematuria after a fall at home
CT with no acute findings, obstruction, or stones
- Speculum exam by assisted living care manager showed no vaginal bleeding or periurethral mass
- Multiple recent cystoscopy procedures with Dr. Hamilton did not show anything suspicious
- Suspect some mild trauma related to fall or hemorrhagic cystitis/UTI is cause of current bleeding
- Recommend observation off anticoagulation
- Continue empiric antibiotic for suspected UTI vs colonoziation (asymptomatic other than bleeding)
- Culture pending
- Recommend changing to abx that cover recent enterococcus 03/2025 and 04/2025
[2025-06-21 14:18] LABS: Hematocrit 39.0 % (37.0-47.0); Hemoglobin 13.6 g/dL (12.0-16.0)
--- NOTE | 2025-06-21 14:26 | CON.MD ---
Consultation - Medical
-
We are consulted for concerns of vaginal bleeding.
H&P
This is 85-year-old female who presented on 06/20 after mechanical fall. She was trying to ambulate without her walker and she fell on her knees. She attempted to scoot into the living room. The family assisted her into a chair afterward. She
did not hit her head or lose consciousness. She notes of using the restroom after the fall and she noticed blood on her pad. She admits hematuria. She denies hematochezia, abdominal pain, nausea, vomiting, flank pain, dysuria, frequency, urgency,
clots. She denies vaginal bleeding prior to the fall. Patient is on Eliquis.
Patient has a prior history of nephrolithiasis status post stone extraction stenting and removal of stents. Prior history of total hysterectomy several years ago. Pelvic exam was performed in the emergency department which revealed small amount
of blood coming from the urethra. CT scan of abdominal/pelvis revealed no acute findings in the abdomen/pelvis, no evidence of obstructing ureteral calculus.
Past medical history
Choledocholithiasis
Cholangitis
Charcot Piper tooth muscular atrophy
Hypertension
IBS
Mitral valve prolapse
Osteoarthritis
urosepsis obstructing right UVJ stone status post extraction with right JJ stent 02/04/2025/pyelonephritis
Past Surgical History:
Cystoscopy right ureteroscopy stone manipulation right retrograde pyelogram right ureteral stent placement 02/04/2025 obstructing right UVJ stone
Cholecystectomy
Total Hysterectomy
Appendectomy
Social History
Tobacco: Non-smoker
Alcohol: None
Drug: None
Personal: Single
Living: Alone (Single home)
Employment: Retired
Family History
Family History: Other (Brother history of A-fib, pacemaker, mother COPD 80s, father old age 80s)
Allergies
Allergy/AdvReac Type Severity Reaction Status Date / Time
mushroom Allergy Unknown Verified 06/20/25 15:40
Penicillins Allergy Rash Verified 06/20/25 15:40
strawberry Allergy Unknown Verified 06/20/25 15:40
tetanus toxoid, adsorbed Allergy Unknown Verified 06/20/25 15:40
Home Medications
levothyroxine 125 mcg tablet 125 mcg PO DAILY Thyroid 06/26/21
multivitamin with folic acid 400 mcg tablet (Tab-A-Theo) 1 tab PO DAILY Supplement 06/26/21
propranolol 80 mg tablet 80 mg PO DAILY Neurological Condition 06/26/21
diltiazem HCl 120 mg capsule,extended release 24 hr 120 mg PO DAILY 07/04/21
spironolactone 25 mg tablet 12.5 mg PO DAILY Blood Pressure 03/13/22
cholecalciferol (vitamin D3) 50 mcg (2,000 unit) tablet 25 mcg PO DAILY Supplement 02/25/24
furosemide 20 mg tablet 60 mg PO DAILY@0800 Fluid Retention/Swelling 02/25/24
apixaban 5 mg tablet (Eliquis) 5 mg PO BID Blood Clot Prevention/Tx 02/04/25
vitamin E (dl, acetate) 180 mg (400 unit) capsule 180 mg PO DAILY Supplement 02/04/25
acetaminophen 650 mg tablet,extended release 1,300 mg PO DAILYPRN PRN mild pain 04/06/25
furosemide 20 mg tablet 20 mg PO NOON Fluid Retention/Swelling 04/06/25
lidocaine 4 % topical patch 1 patch topical DAILY r knee 04/06/25
potassium chloride 8 mEq tablet,extended release 16 meq (2 x 8 mEq) PO DAILY Electrolyte Repletion #10 tabs 04/09/25
loratadine 10 mg tablet 10 mg PO DAILY PRN congestion 04/18/25
Vitals
Temp98.5 BP 111/59 Pulse 94 Oxygen saturation 92 on room air
Physical exam
General: Comfortable and Conversant; No Pain, Fever or Chills
HEENT: Normocephalic, Anicteric, Moist mucous membranes, [place] Conjunctivae and No Ptosis
Respiratory: Clear; No Wheezes, Rales or Rhonchi
Cardiac: S1/S2; No Murmur, Rub, Gallop or Peripheral Edema
GI: Soft, Non Tender, Non Distended, Normal Bowel Sounds and No Hepatosplenomegaly
Female genitourinary : no evidence of traumatic injury to vagina/vulva. No active bleeding. No abrasions. Dried blood was observed over the genitourinary area.
PLAN:
On speculum exam no evidence of traumatic injury to vagina/vulva. No active bleeding. No abrasions. Dried blood was observed over the genitourinary area.
Do not suspect the bleeding originated from the vagina. Given the history of recent fall bleeding may be secondary to trauma related to urethral meatus rather than vaginal source.
Consultation
-
Date/Time Consultation Requested: 06/21/25
Date/Time Consultation Performed: 06/21/25
Requesting Provider: Dr Caprice Hickey
Performing Provider: Dr Caprice Hickey
Reason for Consultation: vaginal bleeding
--- NOTE | 2025-06-21 15:18 | CM ---
CM reviewed chart, patient seen bedside with daughter, initial assessment completed.
Patient resides in a first floor condo, two steps to enter.
DME includes RW, standing walker for shower, lift recliner, commode.
Patient has private duty PT 2x week.
PCP Jennyfer Jackson, [facility]
[employer] form verbally reviewed, provided with copy, placed in chart.
Daughter to transport home tomorrow.
Plan; home with daughter
[2025-06-21 15:30] VITALS: BP 124/63
--- NOTE | 2025-06-21 16:04 | PHA.VAN.IN ---
Assessment
- Assessment
Renal Function: SCR Appears Elevated from baseline
Concomitant Antimicrobials: ceftriaxone
- Previous Dosing Experience
Previous Regimen: Vanc 1500mg Q24H
Date of Regimen: Apr 2025
Patient's SCR is: Elevated compared to previous dosing experience
Patient's weight is: Similar to previous dosing experience
Patient had a peak of 45 on this regimen - was discontinued before other levels were obtained
Plan
- Plan
Initial / Loading Dose: 1500mg - administration pending
Maintenance Regimen: dosing by level
Monitoring: random 06/22 06
Pharmacokinetics Vancomycin I
- -
Patient Age: 85
Patient Sex: Female
Vancomycin Day #: 1
Indication: Genito-Urinary Tract
Requesting Provider: Dr. Cortes
Pertinent Antimicrobial Allergies:
penicillins - rash
Height / Weight:
Height 5 ft 2 in
Actual Weight 75.977 kg
Pertinent Past Medical History: BMI ~31
- Vital Signs / Lab Results
Temp Pulse Resp BP Pulse Ox
98.1 F 79 18 124/63 94
06/21/25 15:30 06/21/25 15:30 06/21/25 15:30 06/21/25 15:30 06/21/25 15:30
Lab Results - Hematology
06/20/25 06/21/25
19:32 07:03
WBC 12.9 H 7.7
Lab Results - Chemistry
06/20/25 06/21/25
19:32 07:03
BUN 29 H 27 H
Creatinine 1.2 H 1.2 H
Estimated Creat Clear 32
Albumin 4.5
Lab Results - Urine
06/20/25
23:51
Urine Nitrite (Reflex) Positive A
Leukocyte Esterase Rfl 2+ A
Urine WBC (Reflex) 6-10
Ur Squamous Epith Cells 6-10
[2025-06-21] MEDS: ROCEPHIN 1000 MG IV (16:27)
[2025-06-21] MEDS: STERILE WATER FOR INJECTION 10 ML IV (16:27)
[2025-06-21] MEDS: VANCOCIN 530 MG IV (16:29)
[2025-06-21] MEDS: FLUSH (NSS) 1 FLUSH IV (16:29)
[2025-06-21] MEDS: LASIX 20 MG PO (16:41)
[2025-06-21] MEDS: REMOVE LIDOCAINE PATCH 1 PATCH REMOVE (20:58)
[2025-06-21 23:30] VITALS: BP 151/71
[2025-06-22] MEDS: SYNTHROID 125 MCG PO (05:38)
[2025-06-22 06:00] VITALS: BMI 31.0
[2025-06-22 07:20] LABS: Blood Urea Nitrogen 28 mg/dl (7-17); Calcium 8.4 mg/dl (8.4-10.2); Carbon Dioxide 23 mmol/L (22-30); Chloride 100 mmol/L (98-107); Estimated Creatinine Clearance 32 ml/min; Glucose 102 mg/dl (70-99); Potassium 3.8 mmol/L (3.5-5.1); Sodium 133 mmol/L (135-145); eGFR 44.08
[2025-06-22 07:44] VITALS: BP 99/57
[2025-06-22 08:02] LABS: Hematocrit 37.0 % (37.0-47.0); Hemoglobin 12.3 g/dL (12.0-16.0); Mean Corp Hgb Conc. 33.2 g/dL (33.0-37.0); Mean Corpuscular Volume 91.1 fL (81.0-99.0); Nucleated Red Blood Cells % 0 %; Platelet Count 178 10^3/uL (130-400); Red Cell Dist. Width 14.6 % (11.5-14.5)
--- NOTE | 2025-06-22 08:09 | PHA.VAN.FU ---
Vancomycin Assessment / Plan
- Assessment
Renal Function: Stable
WBC's are: WNL
In the past 24 hrs, patient has been: Afebrile
Concomitant Antimicrobials: CEFTRIAXONE
- Assessment - Therapeutic Drug Monitoring
Random Level: 15.1 DRAWN ~11 HRS AFTER PREVIOUS VANCO 1500 MG
- Dosing Plan
Dosing by Level: Re-dose today (VANCO 750MG X1)
- Monitoring Plan
Random Level: 06/23 @0600
- Follow Up
Pharmacy will continue to follow.
Vancomycin Follow UP
- -
Patient Age: 85
Patient Sex: Female
Vancomycin Day #: 2
Indication: Genito-Urinary Tract
Requesting Provider: Dr. Cortes
Pertinent Antimicrobial Allergies:
penicillins - rash
Height / Weight:
Height 5 ft 2 in
Actual Weight 76.856 kg
Pertinent Past Medical History: BMI ~31
- Vital Signs / Lab Results
Temp Pulse Resp BP Pulse Ox
97.9 F 91 16 151/71 93
06/21/25 23:30 06/21/25 23:30 06/21/25 23:30 06/21/25 23:30 06/22/25 03:10
Lab Results - Hematology
06/20/25 06/21/25 06/22/25
19:32 07:03 06:25
WBC 12.9 H 7.7 7.5
Lab Results - Chemistry
06/20/25 06/21/25 06/22/25
19:32 07:03 06:25
BUN 29 H 27 H 28 H
Creatinine 1.2 H 1.2 H 1.2 H
Estimated Creat Clear 32 32
Albumin 4.5
Therapeutic Drug Monitoring
Random Vancomycin 15.1 ug/ml 06/22/25 06:25
[2025-06-22] MEDS: VANCOCIN 150 IV (08:23)
[2025-06-22] MEDS: INDERAL 80 MG PO (08:23)
[2025-06-22] MEDS: LIDOCAINE 4% PATCH 1 PATCH TOPICAL (08:25)
[2025-06-22] MEDS: THERAGRAN 1 TABLET PO (08:25)
[2025-06-22] MEDS: CARDIZEM CD 120 MG PO (08:25)
[2025-06-22] MEDS: ALDACTONE 12.5 MG PO (08:25)
[2025-06-22] MEDS: FLUSH (NSS) 1 FLUSH IV (08:26)
[2025-06-22] MEDS: LASIX 60 MG PO (08:29)
--- NOTE | 2025-06-22 12:00 | W.PN.HOSP.TC ---
Addendum entered and electronically signed by Sung Cortes MD 06/22/25 17:07:
Tried reach daughter today but unsuccessful
Original Note:
Today's Communication/Plan
-
Antibiotics. Monitor hemoglobin
Assessment / Plan
Assessment / Plan
Physical exam:
General: Well Developed, Well Nourished and No Apparent Distress
HEENT: Normocephalic, Atraumatic and Moist Mucous Membranes
Respiratory: Clear to Auscultation; Negative Wheezes, Rales or Rhonchi
Cardiac: Regular Rhythm and S1/S2
GI: Soft, Nontender and Nondistended
Musculoskeletal: No Clubbing, No Cyanosis and No Edema
Neuro: Awake, Alert and Oriented, no neurological deficit
Psych: Calm
A/P:
Hematuria:
Urology consult appreciated
CT abdomen pelvis unremarkable
Continue monitor hemoglobin
Antibiotic
Continue hold anticoagulant
Discussed with daughter at bedside yesterday
Ruled out vaginal bleed:
Appreciated SKID MAN input
Possible UTI:
Continue IV ceftriaxone and vancomycin due to prior history of Enterococcus and will adjust depending on final culture result.
Urine culture pending
Fall:
Appears to be mechanical fall
PT OT eval
Paroxysmal atrial fibrillation
Continue rate control, diltiazem
Hold anticoagulation for now
quality assurance monitor final
Chronic HFpEF:
Monitor volume status
Continue diuretic
Monitor ins and outs and daily weight
Hyponatremia:
Mild
Trend in a.m.
CKD stage IIIb:
Avoid nephrotoxic
Monitor renal function in am
DVT prophylaxis:
SCDs
CODE STATUS:
Full code
Total time spent on today's encounter was 35 minutes which included time spent in counseling the patient/family regarding diagnosis and treatment plan as listed above, goals of care, and symptom management. Case was discussed with nursing staff,
specialists, and care coordinators/case management. All labs and imaging personally reviewed by me. Remainder the time spent in detailed review of previous records, lab data, imaging, and other medical provider documentation.
Anticipated Discharge: Within 24 hours
Subjective/Interval History
-
Date of Service: June 22, 2025
Patient feels better today. She denies bleeding today but the same thing happened yesterday and she had some bleeding later on so we will watch.
Objective Data
-
Labs:
Laboratory Results
06/22/25
06:25
WBC 7.5
Hgb 12.3
Hct 37.0
Plt Count 178
Sodium 133 L
Potassium 3.8
Chloride 100
Carbon Dioxide 23
BUN 28 H
Creatinine 1.2 H
Glucose 102 H
Calcium 8.4
Vital Signs:
Vital Signs
Temp Pulse Resp BP Pulse Ox
98.3 F 91 18 108/67 90
06/22/25 07:44 06/22/25 08:23 06/22/25 07:44 06/22/25 08:23 06/22/25 07:44
I&O
06/21/25 06/22/25 06/23/25
06:59 06:59 06:59
Intake Total 930 / 930 170 / 170
Output Total
Balance -1 / -1 930 / 930 170 / 170
--- NOTE | 2025-06-22 12:42 | W.PN.URO.CBU ---
Today's Communication / Plan
-
Trend hematuria which is resolving
Continue abx pending culture for possible UTI
Assessment / Plan
-
85F with recent kidney stones and procedures 04/2025
Admitted with gross hematuria after a fall at home
CT with no acute findings, obstruction, or stones
- Speculum exam by putty and caulking supervisor showed no vaginal bleeding or periurethral mass
- Multiple recent cystoscopy procedures with Dr. Hamilton did not show any cause of hematuria
- Suspect some mild trauma related to fall or hemorrhagic cystitis/UTI is cause of current bleeding
Bleeding resolving as of 06/22
- Recommend observation off anticoagulation
- Continue empiric antibiotic for suspected UTI vs colonoziation (asymptomatic other than bleeding)
- Culture pending
Diagnosis
-
Date of Service: June 22, 2025
-
Patient Diagnosis:
Hematuria
Post Op Day:
Subjective
-
decreasing hematuria - no clots today, pink urine in toilet with small blood on TP per patient
Objective
-
Vital Signs
Temp Pulse Resp BP Pulse Ox
98.3 F 91 18 108/67 90
06/22/25 07:44 06/22/25 08:23 06/22/25 07:44 06/22/25 08:23 06/22/25 07:44
Intake and Output
06/21/25 06/22/25 06/23/25
06:59 06:59 06:59
Intake Total 930 / 930 170 / 170
Output Total
Balance -1 / -1 930 / 930 170 / 170
Intake:
Oral fluids 400 / 400 170 / 170
IV piggybacks 530 / 530
Output:
Urine, Voided
Other:
How many times incontinent 1
MODERATE amount urine
How many times incontinent 2
SATURATED amount urine
Number of approximated SMALL 1
amounts of urine
Number of approximated MODERATE 2
amounts of urine
Number of approximated LARGE 2 1
amounts of urine
Laboratory Results
06/22/25 06:25
06/22/25 06:25
Physical Exam
-
General - well developed, well nourished, no acute distress
Chest - clear
Abdomen - soft, non-tender
[2025-06-22] MEDS: STERILE WATER FOR INJECTION 10 ML IV (13:02)
[2025-06-22] MEDS: LASIX 20 MG PO (13:02)
[2025-06-22] MEDS: ROCEPHIN 1000 MG IV (13:02)
[2025-06-22] MEDS: FLUSH (NSS) 2 FLUSH IV (13:04)
[2025-06-22 15:12] VITALS: BP 109/68
[2025-06-22] MEDS: TYLENOL 650 MG PO (15:40)
[2025-06-22] MEDS: REMOVE LIDOCAINE PATCH 1 PATCH REMOVE (21:41)
[2025-06-22 23:13] VITALS: BP 118/59
[2025-06-23 06:00] VITALS: BMI 30.6
[2025-06-23] MEDS: SYNTHROID 125 MCG PO (06:08)
[2025-06-23 06:43] LABS: Hematocrit 37.4 % (37.0-47.0); Hemoglobin 13.1 g/dL (12.0-16.0); Mean Corp Hgb Conc. 35.0 g/dL (33.0-37.0); Mean Corpuscular Volume 92.1 fL (81.0-99.0); Nucleated Red Blood Cells % 0 %; Platelet Count 179 10^3/uL (130-400); Red Cell Dist. Width 14.3 % (11.5-14.5)
[2025-06-23 06:57] LABS: Blood Urea Nitrogen 27 mg/dl (7-17); Calcium 8.3 mg/dl (8.4-10.2); Carbon Dioxide 25 mmol/L (22-30); Chloride 100 mmol/L (98-107); Estimated Creatinine Clearance 32 ml/min; Glucose 107 mg/dl (70-99); Potassium 3.1 mmol/L (3.5-5.1); Sodium 134 mmol/L (135-145); eGFR 44.08
[2025-06-23 07:15] VITALS: BP 133/67
--- NOTE | 2025-06-23 08:51 | W.PN.HOSP.TC ---
Today's Communication/Plan
-
Discharge planning today
Assessment / Plan
Assessment / Plan
Physical exam:
General: Well Developed, Well Nourished and No Apparent Distress
HEENT: Normocephalic, Atraumatic and Moist Mucous Membranes
Respiratory: Clear to Auscultation; Negative Wheezes, Rales or Rhonchi
Cardiac: Regular Rhythm and S1/S2
GI: Soft, Nontender and Nondistended
Musculoskeletal: No Clubbing, No Cyanosis and No Edema
Neuro: Awake, Alert and Oriented, no neurological deficit
Psych: Calm
A/P:
Hematuria:
Urology consult appreciated
CT abdomen pelvis unremarkable
Continue monitor hemoglobin
Antibiotic
Continue hold anticoagulant
Discussed with daughter at bedside today
Urology recommends to hold anticoagulant until 06/26 and cleared for discharge
Plan to discharge today
Ruled out vaginal bleed:
Appreciated BUSINESS LAWYER input
UTI:
Enterococcus on urine culture
Switch IV antibiotics to oral quinolone for 7 days
Fall:
Appears to be mechanical fall
PT OT eval
Paroxysmal atrial fibrillation
Continue rate control, diltiazem
Hold anticoagulation for now
proof technician
Chronic HFpEF:
Monitor volume status
Continue diuretic
Monitor ins and outs and daily weight
Hyponatremia:
Mild
Trend in a.m.
CKD stage IIIb:
Avoid nephrotoxic
Monitor renal function in am
DVT prophylaxis:
SCDs
CODE STATUS:
Full code
Total time spent on today's encounter was 35 minutes which included time spent in counseling the patient/family regarding diagnosis and treatment plan as listed above, goals of care, and symptom management. Case was discussed with nursing staff,
specialists, and care coordinators/case management. All labs and imaging personally reviewed by me. Remainder the time spent in detailed review of previous records, lab data, imaging, and other medical provider documentation.
Anticipated Discharge: Today
Subjective/Interval History
-
Date of Service: June 23, 2025
No more hematuria. Feels back to her baseline. Afebrile
Objective Data
-
Labs:
Laboratory Results
06/23/25
06:09
WBC 7.1
Hgb 13.1
Hct 37.4
Plt Count 179
Sodium 134 L
Potassium 3.1 L
Chloride 100
Carbon Dioxide 25
BUN 27 H
Creatinine 1.2 H
Glucose 107 H
Calcium 8.3 L
Vital Signs:
Vital Signs
Temp Pulse Resp BP Pulse Ox
98 F 104 16 133/67 88
06/23/25 07:15 06/23/25 07:15 06/23/25 07:15 06/23/25 07:15 06/23/25 07:15
I&O
06/22/25 06/23/25 06/24/25
06:59 06:59 06:59
Intake Total 930 / 930 760 / 760
Balance 930 / 930 760 / 760
--- NOTE | 2025-06-23 08:52 | W.DCSUMMARY ---
Discharge Summary
Discharge Data
Date of Admission: 06/20/25
Date of Discharge: 06/23/25
-
Pending Results: No
Hospital Course
Patient 85-year-old female with history of kidney stones, hypertension, IBS, mitral valve prolapse, came into the hospital after mechanical fall and found to have hematuria. Initially there was concern for vaginal bleeding but after CUSTOMER ADVISOR evaluation
it was determined that there was no evidence of vaginal bleed. Urology was consulted. Anticoagulation was recommended to be kept on hold. She was empirically started on IV antibiotics. Her urine cultures indeed Enterococcus. Antibiotics were
tailored to sensitivities. Patient hematuria resolved and we recommended to restart anticoagulation on 06/26/2025 per urology recommendation. Patient will be continued on a short course of oral antibiotics per urology cleared for discharge today.
She is otherwise hemodynamically stable and afebrile. Continue bedside admitted with PT and OT who recommended to continue home PT. She will be discharged in relatively stable condition today.
Discharge Plan
-
Patient Disposition: Home with Home Care
Discharge Diagnosis/Procedures: Fall. Hematuria. Urinary tract infection. History of paroxysmal atrial fibrillation. History of chronic diastolic congestive heart failure. History of chronic kidney disease stage IIIb.
Diet: Low Cholesterol
Activity: As tolerated
Blood Work: Please PCP to order CBC, BMP within 1 week
Referrals:
Jennyfer Jackson DO [Family Provider, [facility] Practice] - in less than 1 week
Prescriptions:
New
ciprofloxacin HCl 500 mg Tablet
500 mg PO BID 7 Days Qty: 14 0RF
Continued
propranolol 80 MG tablet
80 mg PO DAILY
levothyroxine 125 MCG tablet
125 mcg PO DAILY
multivitamin with folic acid [Tab-A-Theo] 1 TABLET tablet
1 tab PO DAILY
diltiazem HCl 120 MG capsule,extended release 24hr
120 mg PO DAILY 0RF
spironolactone 25 MG tablet
12.5 mg PO DAILY
furosemide 20 mg tablet
60 mg PO DAILY@0800
cholecalciferol (vitamin D3) 50 mcg (2,000 unit) Tablet
25 mcg PO DAILY
vitamin E (dl, acetate) 180 mg (400 unit) Capsule
180 mg PO DAILY
lidocaine 4 % Adhesive Patch,Medicated
1 patch TOPICAL DAILY
acetaminophen 650 mg Tablet Extended Release
1,300 mg PO DAILYPRN PRN (Reason: mild pain)
furosemide 20 mg tablet
20 mg PO NOON
potassium chloride 8 mEq tablet extended release
16 meq PO DAILY Qty: 10 0RF
loratadine 10 mg Tablet
10 mg PO DAILY PRN (Reason: congestion)
Held
Eliquis 5 mg Tablet
5 mg PO BID
Hold Instructions: Resume on 06/26/25.
Discharge Orders:
Discharge Patient (As Directed); Ordered 06/23/25
Ordered By: Sung Cortes
Discharge Date and Time
Discharge Date/Time: 06/23/25 13:28
Print Language: UZBEK
[2025-06-23] MEDS: THERAGRAN 1 TABLET PO (10:20)
[2025-06-23] MEDS: LIDOCAINE 4% PATCH 1 PATCH TOPICAL (10:20)
[2025-06-23] MEDS: KCL 40 MEQ PO (10:20)
[2025-06-23] MEDS: ALDACTONE 12.5 MG PO (10:20)
[2025-06-23] MEDS: LASIX 60 MG PO (10:20)
[2025-06-23] MEDS: CIPRO 500 MG PO (10:20)
[2025-06-23] MEDS: CARDIZEM CD 120 MG PO (10:20)
[2025-06-23] MEDS: INDERAL 80 MG PO (10:20)
--- NOTE | 2025-06-23 10:40 | W.PN.URO.CBU ---
Today's Communication / Plan
-
Continue antibiotic
Hold anticoagulation until 06/26
Stable for discharge from standpoint
Assessment / Plan
-
85F with recent kidney stones and procedures 04/2025
Admitted with gross hematuria after a fall at home
CT with no acute findings, obstruction, or stones
- Speculum exam by weather analyst showed no vaginal bleeding or periurethral mass
- Multiple recent cystoscopy procedures with Dr. Hamilton did not show any cause of hematuria
- Suspect some mild trauma related to fall or hemorrhagic cystitis/UTI is cause of current bleeding
- Bleeding resolved as of 06/22
- Hold anticoagulation until 06/26
- Continue antibiotic for positive urine culture - 100k enterobacter. Recommend 7 day total abx course for UTI
Stable for discharge from urology standpoint
Diagnosis
-
Date of Service: June 23, 2025
-
Patient Diagnosis:
Hematuria
Post Op Day:
Subjective
-
Hematuria resolved
Objective
-
Vital Signs
Temp Pulse Resp BP Pulse Ox
98 F 104 16 133/67 88
06/23/25 07:15 06/23/25 07:15 06/23/25 07:15 06/23/25 07:15 06/23/25 07:15
Intake and Output
06/22/25 06/23/25 06/24/25
06:59 06:59 06:59
Intake Total 930 / 930 760 / 760
Balance 930 / 930 760 / 760
Intake:
Oral fluids 400 / 400 610 / 610
IV piggybacks 530 / 530 150 / 150
Other:
How many times incontinent 1
MODERATE amount urine
How many times incontinent 2
SATURATED amount urine
Number of approximated SMALL 1
amounts of urine
Number of approximated MODERATE 1
amounts of urine
Number of approximated LARGE 2 1
amounts of urine
Laboratory Results
06/23/25 06:09
06/23/25 06:09
Physical Exam
-
General - well developed, well nourished, no acute distress
--- NOTE | 2025-06-23 12:15 | CM ---
Patient is for discharge to home today, patient has outpatient PT in home that family private pay for and they have declined visiting nurses stating that they would just like to resume PT in home.
Plan; Home with PT private pay.
[2025-06-23] MEDS: LASIX 20 MG PO (12:27)
[2025-06-23 12:31] VITALS: BP 151/96
== END 2025-06-23 13:28 | disposition home or self-care (01) ==
LOC: 4 WEST ACU 22:18
PROVIDERS: Emergency Medicine; ADMITTING PHYSICIAN Internal Medicine; ATTENDING PHYSICIAN Hospitalist; CONSULT PHYSICIAN Student in an Organized Health Care Education/Training Program; CONSULT PHYSICIAN Urology; EMERGENCY PHYSICIAN Emergency Medicine; FAMILY PHYSICIAN Family Medicine
DX: R31.0 Gross hematuria (principal); D68.32 Hemorrhagic disorder due to extrinsic circulating anticoagulants; R53.1 Weakness; N20.0 Calculus of kidney; R20.0 Anesthesia of skin; B95.2 Enterococcus as the cause of diseases classified elsewhere; N39.0 Urinary tract infection, site not specified; E87.1 Hypo-osmolality and hyponatremia; M19.90 Unspecified osteoarthritis, unspecified site; J45.909 Unspecified asthma, uncomplicated; I48.0 Paroxysmal atrial fibrillation; G60.0 Hereditary motor and sensory neuropathy; N18.32 Chronic kidney disease, stage 3b; I13.0 Hypertensive heart and chronic kidney disease with heart failure and stage 1 through stage 4 chronic kidney disease, or unspecified chronic kidney disease; E03.9 Hypothyroidism, unspecified; K21.9 Gastro-esophageal reflux disease without esophagitis; R26.2 Difficulty in walking, not elsewhere classified; E78.5 Hyperlipidemia, unspecified; I50.32 Chronic diastolic (congestive) heart failure; K57.30 Diverticulosis of large intestine without perforation or abscess without bleeding; W01.0XXA Fall on same level from slipping, tripping and stumbling without subsequent striking against object, initial encounter; Y93.01 Activity, walking, marching and hiking; Y92.008 Other place in unspecified non-institutional (private) residence as the place of occurrence of the external cause; Z79.01 Long term (current) use of anticoagulants; Z87.442 Personal history of urinary calculi; Z90.710 Acquired absence of both cervix and uterus; Z90.49 Acquired absence of other specified parts of digestive tract; Z79.890 Hormone replacement therapy; Z79.899 Other long term (current) drug therapy; Z82.5 Family history of asthma and other chronic lower respiratory diseases; Z82.49 Family history of ischemic heart disease and other diseases of the circulatory system; Z88.0 Allergy status to penicillin; Z88.7 Allergy status to serum and vaccine; Z88.8 Allergy status to other drugs, medicaments and biological substances; Z91.018 Allergy to other foods; Z60.2 Problems related to living alone; Z87.440 Personal history of urinary (tract) infections
CPT/HCPCS: 74176; 80048; 80053; 80202; 81003; 81015; 85014; 85018; 85025; 85027; 86850; 86900; 86901; 87077; 87086; 87186; 93005; 97116; 97162; 97166; 99284; G0378

== ENCOUNTER 2025-07-02 09:48 | Emergency (ER) | payer MEDICARE, SELFPAY ==
[2025-07-02] VITALS (7 sets, daily range): BP systolic 100–125; BP diastolic 47–82; BMI 31.4
--- NOTE | 2025-07-02 10:22 | ED.GENMED ---
History of Present Illness
General
Chief Complaint: Chest Pain
Source: patient, records and ambulance crew
Exam Limitations: none
Time Seen by Provider: 07/02/25 09:58
Nursing documentation reviewed up to this point in time: agreed with
History of Present Illness
History of Present Illness:
85-year-old female with history as noted presents to the ER for evaluation of blood in her stool she also reports a vague 'heaviness' in her chest. Of note patient was treated for hematuria and UTI and discharged from the hospital 06/23/2025. She
makes note that hematuria has resolved since this hospitalization. Patient reports that she called EMS today because she went to the bathroom and had a bowel movement and when she wiped herself she noticed some blood on the toilet tissue. She says
she did not notice blood in the toilet bowl. She says that this is the first time she has noticed this issue although she says she has not definitively checked every time she has a bowel movement. She says that she was scared when she saw this and
she called EMS and apparently when EMS did their assessment they asked her about chest discomfort and she mention she has been having some heaviness in her chest. She describes it as a vague intermittent heaviness over the past few days. She is
quite clear that she does not have chest pain. She does feel mildly short of breath. She denies being dizzy or having palpitations. She has not had a cough or fever. Of note patient is on Eliquis for history of A-fib and has been compliant. She
sees Dr. Aguila for cardiology care. Also of note�patient tells me that occasional chest heaviness is not unusual for her and that, if not for blood in her stool, she would not have brought this to the attention of her doctor or called the
ambulance.
Past History
Past History
ED Past Medical History: Arrthythmia (Atrial fibrillation.), Asthma, GERD, HTN and Hypothyroidism
ED Past Surgical History: Appendectomy, Cholecystectomy, Gynecological and Urological
Social History
Tobacco: Non-smoker
Alcohol: None
Drug: None
Living: alone
Employment: Retired
Family History
Family History: Other (Noncontributory)
Review of Systems
Review of Systems
All Other Systems: ROS reviewed and negative except as documented in HPI and ROS
Constitutional: Denies fever
Respiratory: Reports trouble breathing; Denies cough
Cardiac: Denies chest pain
ABD/GI: Reports bloody stools; Denies abdominal pain, nausea, vomiting or diarrhea
: Denies flank pain
Musculoskeletal: Denies neck pain or back pain
Neurological: Denies dizzy or headache
Phy Exam
Physical Exam
Physical Exam:
General: Awake, alert, oriented x3; no acute distress
Head: Normocephalic, atraumatic
Eyes: Conjunctiva normal, sclera anicteric
Throat: Airway intact, handling secretions
Neck: Trachea midline, supple without meningismus
Lungs: Clear to auscultation bilaterally, no wheezing, rales, rhonchi
Heart: Regular rate and rhythm, no murmurs, gallops, or rubs
Abd: Soft, non distended, nontender
Rectal: No appreciable external hemorrhoids, brown stool in the rectal vault trace positive Hemoccult
Neuro: Grossly intact
Skin: Warm and dry
Extremities: Warm and well-perfused
Scores
Heart Failure Risk
Heart Failure Risk Score: Not Applicable
Heart Score for Chest Pain Patients
STEMI patient?: Not applicable
Withdrawal Assessment of Alcohol
Withdrawal Assessment Completed?: Not applicable
Course
Orders/Labs/Results
Orders:
Orders
07/02/25 09:51
EKG [Electrocardiogram (*1)] Urgent
Reason for Study: Shortness of Breath
CR Chest - 2 Views Urgent
Comment:
Reason For Exam: SOB
07/02/25 09:52
EKG- Treatment ONCE
07/02/25 09:56
Complete Blood Count/With Diff Urgent
NT-proBNP Urgent
Comment: ADD ON
Prothrombin Time Urgent
Troponin I Urgent
07/02/25 10:43
CR Abdomen - 2 Views Urgent
Comment:
Reason For Exam: ? free air on CXR
07/02/25 10:50
Comprehensive Metabolic Panel Urgent
07/02/25 11:39
Type+Screen Urgent
BBK Wristband Number:
07/02/25 13:58
Acetaminophen [Tylenol] 1,000 mg PO NOW STA
07/02/25 14:08
Troponin I Urgent
07/02/25 14:10
Acetaminophen [Tylenol] 500 mg .ROUTE .STK-MED ONE
Abnormal Lab Results
07/02/25 07/02/25
09:56 10:50
MCHC 32.8 L g/dL
(33.0-37.0)
RDW 14.8 H %
(11.5-14.5)
Abs Immat Gran (auto) 0.1 H 10^3/uL
(0-0.05)
Absolute Monos (auto) 0.7 H 10^3/uL
(0.1-0.6)
Immature Gran % 0.7 H %
(0-0.5)
Lymphocytes % 19.9 L %
(20.5-51.1)
Monocytes % 9.6 H %
(1.7-9.3)
PT 24.3 H Sec
(11.4-14.6)
BUN 18 H mg/dl
(7-17)
Creatinine 1.2 H mg/dL
(0.6-1.0)
Glucose 127 H mg/dl
(70-99)
07/02/25 09:56
07/02/25 10:50
Vital Signs
Initial and Last Documented VS:
Initial Vital Signs
Resp
26
07/02/25 09:53
Last Documented Vital Signs
Temp Pulse Resp BP Pulse Ox
36.2 C 83 21 103/57 95
07/02/25 09:59 07/02/25 14:00 07/02/25 14:00 07/02/25 13:00 07/02/25 13:15
MDM/Problems Addressed
Differential Diagnosis Includes:
Rectal bleeding (bright red blood on toilet tissue, likely lower GI): Hemorrhoid, diverticular bleed, mass, etc
Chest heaviness: ACS, pneumonia, bronchitis, CHF, anemia, anxiety
MDM/Problems Addressed:
85-year-old female with history as noted, recent hospitalization for UTI/hematuria presents to the ER today primarily seeking evaluation after noticing bright red blood on toilet tissue after having a bowel movement today. She is notably on
Eliquis. She also made note of some intermittent heaviness in her chest over the past few days which she says is not totally unusual for her. Vital signs here were significant for mild tachypnea but no hypoxia, no tachycardia, normotensive.
Physical exam is as noted. Will plan to place an IV and check labs including a CBC and a CMP, type and screen. Can check EKG and troponin, chest x-ray. Will monitor patient on telemetry, reassess after the above.
Labs reviewed: CBC shows no clinically significant abnormalities, CMP shows CKD not acutely changed from prior. Initial troponin negative�will trend. Her proBNP is slightly elevated. Chest x-ray showed no cuate edema�there was an area of
atelectasis at the right lung base, difficult to visualize diaphragm distinctly and so could not completely rule out free air under the diaphragm although this does not fit with her clinical picture she is not having abdominal tenderness. She was
sent for a follow-up two-view x-ray of the abdomen which showed no free air. Overall patient has been stable. She is having occasional episodes where she clutches her chest and pain�her daughter is at bedside and provides some context and says
that this has been going on for a few weeks and there was a fall recently and there was concern maybe she could have hurt her ribs from the fall. She does have some mild rib tenderness but no crepitus. No fractures noted on x-ray.
Repeat troponin undetectable. Pain well-controlled with Tylenol and she says when she sits still the pain is not as bad it really is mostly when she moves a certain way. This seems to be musculoskeletal chest pain. I had a long discussion with
the patient and daughter regarding her issues today�her initial chief concern was blood in the stool and while she was here she was evaluated for this chest pain. From a GI bleeding perspective low suspicion for significant source of
bleeding�suspect this was likely hemorrhoidal bleeding right may have been from irritation as she did have some loose stools yesterday and was wiping a lot. She has not had any repeat bleeding has had stable vital signs throughout including heart
rate in the 70s during my most recent assessment. Her hemoglobin is totally normal. I think she can be discharged from this perspective and return if there is any recurrence of bleeding. From a chest pain perspective again she has been ruled out
for acute RI she has no pneumothorax or pneumonia, low suspicion for pulmonary embolism and my suspicion is that this is musculoskeletal chest pain. Patient and family prefer to go home at this point and I think this is a reasonable plan. They
will follow-up with patient's primary provider and I advised patient to return with any recurrence of bleeding, worsening chest pain, shortness of breath, dizziness or any other concerning symptoms. All questions answered.
Chronic conditions affecting care:
A-fib on Eliishmaelis complicates GI bleeding
*Radiology
Radiology exam reviewed: preliminary read by ED provider
*Pulse Oximetry
SaO2: 95
Oxygen Mode of Delivery: Room air
Patient hypoxic: no (95%)
*EKG
Interpreted by ED Provider?: Yes
Heart Rate: 76
Rate: normal
Rhythm: a-fib
Britt: normal axis
Interval: normal interval
QRS Pattern: low voltage
Ischemia: no ischemia
*Critical Care Note
Total Time (30-74mins, 75-104mins- exclusive of procedures): Not Applicable
Data Reviewed
Review of Other/Old Records Reveals: Labs and Records
Source: patient, records and ambulance crew
Patient Management
Social determinants of health affecting care: Strong social support
Escalation/DeEscalation of care consider admission/obs:
Considered/offered admission�using shared decision making patient discharged with close follow-up plan
ED Attending Note
-
Portions of this chart may have been created with voice recognition software.� Occasional wrong word or��sound alike� substitutions may have occurred due to the inherent limitations of voice recognition software.
Discharge Plan
Departure
Patient Disposition: Home (Routine Discharge)
Date of Disposition: 07/02/25
Time of Disposition: 15:20
Patient with high blood pressure during this ER visit?: No
Discharge Problem:
Rectal bleeding, Chest pain
Instructions: GI bleed (DC), Chest Pain PCP Follow Up
Prescriptions:
No Action
propranolol 80 MG tablet
80 mg PO DAILY
levothyroxine 125 MCG tablet
125 mcg PO DAILY
multivitamin with folic acid [Tab-A-Theo] 1 TABLET tablet
1 tab PO DAILY
diltiazem HCl 120 MG capsule,extended release 24hr
120 mg PO DAILY 0RF
spironolactone 25 MG tablet
12.5 mg PO DAILY
furosemide 20 mg tablet
60 mg PO DAILY@0800
cholecalciferol (vitamin D3) 50 mcg (2,000 unit) Tablet
25 mcg PO DAILY
vitamin E (dl, acetate) 180 mg (400 unit) Capsule
180 mg PO DAILY
Eliquis 5 mg Tablet
5 mg PO BID
lidocaine 4 % Adhesive Patch,Medicated
1 patch TOPICAL DAILY
acetaminophen 650 mg Tablet Extended Release
1,300 mg PO DAILYPRN PRN (Reason: mild pain)
furosemide 20 mg tablet
20 mg PO NOON
potassium chloride 8 mEq tablet extended release
16 meq PO DAILY Qty: 10 0RF
loratadine 10 mg Tablet
10 mg PO DAILY PRN (Reason: congestion)
ciprofloxacin HCl 500 mg Tablet
500 mg PO BID 7 Days Qty: 14 0RF
Referrals:
Jennyfer Jackson DO [Family Provider, [facility]] - Follow up in 5-7 days
Activity Restrictions/Additional Instructions:
Thank you for visiting the Emergency Department at [facility].
1. Please schedule a follow up appointment as directed. Call first thing tomorrow morning to make an appointment.
2. If indicated, please take your medications as instructed and indicated on discharge paperwork.
3. If any of your symptoms do not improve, or persist, or become more severe within 6-12 hours, please return to the emergency department for further care.
4. Please return to the emergency department if you develop a headache, neck pain/stiffness, fever greater than 100.4F, chest pain, shortness of breath, persistent nausea, vomiting, slurred speech, difficulty walking, numbness/tingling, weakness,
signs of infection or any other symptoms that are worrisome to you.
Please call [phone] if you have any questions.
Interventions
Interventions:
*General Assessment Last Done: 07/02/25 10:01
*Neglect/Abuse Screening Last Done: 07/02/25 10:01
*ED COVID-19 Vaccine History Last Done: 07/02/25 10:10
*ED Influenza Vaccine History Last Done: 07/02/25 10:10
*Risk Screen - Suicide (C-SSRS) Last Done: 07/02/25 10:01
ED- Cardiac Assessment Last Done: 07/02/25 10:08
Discharge Date and Time
Print Language: RWANDAN
[2025-07-02 10:24] LABS: Hematocrit 41.8 % (37.0-47.0); Hemoglobin 13.7 g/dL (12.0-16.0); Mean Corp Hgb Conc. 32.8 g/dL (33.0-37.0); Mean Corpuscular Volume 93.1 fL (81.0-99.0); Nucleated Red Blood Cells % 0 %; Platelet Count 313 10^3/uL (130-400); Red Cell Dist. Width 14.8 % (11.5-14.5)
[2025-07-02 10:32] LABS: INR 2.16; PT 24.3 Sec (11.4-14.6)
[2025-07-02 10:38] LABS: Troponin I < 0.012 ng/ml
[2025-07-02 11:25] LABS: ALT (SGPT) 12 U/L (0-35); AST (SGOT) 20 U/L (14-36); Albumin 4.2 g/dl (3.5-5.0); Alkaline Phosphatase 52 U/L (38-126); Blood Urea Nitrogen 18 mg/dl (7-17); Calcium 9.1 mg/dl (8.4-10.2); Carbon Dioxide 28 mmol/L (22-30); Chloride 103 mmol/L (98-107); Estimated Creatinine Clearance 32 ml/min; Glucose 127 mg/dl (70-99); Potassium 4.1 mmol/L (3.5-5.1); Sodium 139 mmol/L (135-145); Total Protein 7.9 g/dl (6.3-8.2); eGFR 44.08
[2025-07-02] MEDS: TYLENOL 1000 MG PO (14:08)
[2025-07-02 14:49] LABS: Troponin I 0.012 ng/ml
== END 2025-07-02 15:47 | disposition home or self-care (01) ==
LOC: EMR 09:48
PROVIDERS: EMERGENCY PHYSICIAN Emergency Medicine; FAMILY PHYSICIAN Family Medicine
DX: K62.5 Hemorrhage of anus and rectum (principal); R07.9 Chest pain, unspecified; E03.9 Hypothyroidism, unspecified; I10 Essential (primary) hypertension; I48.91 Unspecified atrial fibrillation; J45.909 Unspecified asthma, uncomplicated; Z79.01 Long term (current) use of anticoagulants; Z90.49 Acquired absence of other specified parts of digestive tract
CPT/HCPCS: 99284; 71046; 74019; 80053; 83880; 84484; 85025; 85610; 86850; 86900; 86901; 93005